=== PATIENT | female | born 1970 | race Two or more races ===

== ENCOUNTER 2020-06-27 15:00 | Outpatient (RCR) | payer OTHER, SELFPAY | END 2020-09-20 07:27 | disposition home or self-care (01) | LOC: HO.OT 15:00 | PROVIDERS: Visit Provider Student in an Organized Health Care Education/Training Program | DX: M25.432 Effusion, left wrist (principal) | CPT/HCPCS: 97110; 97530 ==

== ENCOUNTER 2020-11-01 09:54 | Outpatient (REF) | payer OTHER, SELFPAY ==
--- NOTE | ~2020-11-01 | MM_ITS ---
EXAMINATION: MM SCREENING DIGITAL BREAST TOMOSYNTHESIS, BILATERAL CLINICAL INFORMATION: Screening. Asymptomatic. The lifetime risk of breast cancer based on the Tyrer-Cuzick Model is 8.5%. COMPARISON: Mammography: May 18, 2019 and studies dating back to January 22, 2014 TECHNIQUE: Digital breast tomosynthesis is performed in both the craniocaudal and mediolateral oblique views along with computer-aided detection (CAD). Synthesized 2D images are generated from the tomosynthesis. FINDINGS: The breasts are almost entirely fatty (ACR BI-RADS breast composition Category a). There are no significant masses, abnormal calcifications, or other abnormalities. MM/MM tomosynthesis screening BI IMPRESSION: There are no significant changes from prior study. ASSESSMENT: BI-RADS 1: Negative RECOMMENDATION: Routine annual mammography screening. This patient's information was entered into a reminder system with a target due date for their next mammogram.
== END 2020-11-01 09:55 | disposition home or self-care (01) ==
LOC: HO.MAMMO 09:54
PROVIDERS: PCP Internal Medicine; Visit Provider Internal Medicine
DX: Z12.31 Encounter for screening mammogram for malignant neoplasm of breast (principal)
CPT/HCPCS: 77063; 77067

== ENCOUNTER 2020-12-15 13:41 | Outpatient (REF) | payer OTHER, SELFPAY ==
[2020-12-15 14:18] LABS: MANUAL DIFF FLAG NO
[2020-12-15 14:23] LABS: Glucose Urine UA 100 MG/DL (NEG); Leukocyte Esterase Urine TRACE (NEG); Nitrite Urine NEG (NEG); Urine Blood NEG (NEG); Urine Ketones NEG (NEG); Urine Protein NEG (NEG-TRACE)
[2020-12-15 14:24] LABS: Basophils Absolute Auto 0.1 X10*3/uL (0.0-0.2); Basophils Percent Auto 0.8 % (0-2); Eosinophils Absolute Auto 0.4 X10*3/uL (0.0-0.4); Hematocrit 42.7 % (37-47); Hemoglobin 14.5 g/dl (12.0-16.0); Imm Gran Abs Auto 0.04 X10*3/uL (0.00-0.03); Imm Gran Pct Auto 0.5 % (0.0-0.4); Lymphocytes Absolute Auto 2.6 X10*3/uL (1.2-4.9); Lymphocytes Percent Auto 34.5 % (20-40); Mean Corpuscular Hemoglobin 31.4 pg (27.0-33.0); Mean Corpuscular Volume 92.4 fL (80-98); Mean Platelet Volume 10.4 fL (9.4-12.3); Monocytes Absolute Auto 0.4 X10*3/uL (0.1-1.2); Monocytes Percent Auto 5.8 % (2-11); Neutrophils Percent Auto 53.4 % (45-73); Platelet Count 217 X10*3/uL (160-400); Red Blood Count 4.62 X10*6/uL (4.20-5.50); Red Cell Distribution Width 12.7 % (11.0-16.0); White Blood Count 7.5 X10*3/uL (4.8-10.8)
[2020-12-15 14:25] LABS: Appearance Urine HAZY; Color Urine YELLOW
[2020-12-15 14:44] LABS: Alanine Aminotransferase 23 U/L (0-31); Albumin Level 4.3 g/dL (3.5-5.0); Alkaline Phosphatase 69 U/L (39-117); Anion Gap 13 (12-20); Aspartate Amino Transferase 19 U/L (5-31); Bilirubin Total 0.5 mg/dL (0.0-1.0); Blood Urea Nitrogen 14 mg/dL (9-16); Calcium 9.3 mg/dL (8.4-10.2); Carbon Dioxide 26 mmol/L (22-29); Chloride 106 mmol/L (96-108); Cholesterol 227 mg/dL; Estimated Glomerular Filt Rate > 60; Glucose Fasting 92 mg/dL (60-99); HDL Cholesterol 56 mg/dL; LDL Cholesterol Calculated 141 mg/dl; Potassium 3.9 mmol/L (3.3-5.1); Sodium 141 mmol/L (135-145); Total Protein 7.3 g/dL (6.5-8.0); Triglycerides 153 mg/dL
[2020-12-15 15:00] LABS: Bacteria Urine 1+ /LPF; RBC Urine 0-2 /HPF (0); Squamous Epithelial Cell Urine 2+ /LPF
[2020-12-15 15:01] LABS: Free T4 (Free Thyroxine) 0.97 ng/dL (0.71-1.85); Thyroid Stimulating Hormone 0.53 uIU/mL (0.32-4.0)
[2020-12-15 15:06] LABS: Creatinine Urine 108.88 mg/dL; Microalbum/Creatinine Ratio Ur 5.5 ug/mg cr
== END 2020-12-15 13:42 | disposition home or self-care (01) ==
LOC: HO.LAB 13:41
PROVIDERS: PCP Internal Medicine; Visit Provider Internal Medicine
DX: E78.00 Pure hypercholesterolemia, unspecified (principal); G47.33 Obstructive sleep apnea (adult) (pediatric); R63.5 Abnormal weight gain; I10 Essential (primary) hypertension
CPT/HCPCS: 36415; 80053; 80061; 81001; 82043; 84439; 84443; 85025

== ENCOUNTER 2021-02-21 15:40 | Outpatient (REF) | payer OTHER, SELFPAY ==
[2021-02-21 20:15] LABS: Alanine Aminotransferase 18 U/L (0-31); Albumin Level 4.4 g/dL (3.5-5.0); Alkaline Phosphatase 83 U/L (39-117); Anion Gap 15 (12-20); Aspartate Amino Transferase 18 U/L (5-31); Bilirubin Total 0.6 mg/dL (0.0-1.0); Blood Urea Nitrogen 10 mg/dL (9-16); C Reactive Protein 1.17 mg/dL (< or = 0.50); Calcium 9.4 mg/dL (8.4-10.2); Carbon Dioxide 22 mmol/L (22-29); Chloride 109 mmol/L (96-108); Estimated Glomerular Filt Rate > 60; Glucose Random 93 mg/dL (60-115); Potassium 3.8 mmol/L (3.3-5.1); Sodium 142 mmol/L (135-145); Total Protein 7.6 g/dL (6.5-8.0)
[2021-02-21 20:28] LABS: Uric Acid 7.1 mg/dL (2.4-5.7)
== END 2021-02-21 15:41 | disposition home or self-care (01) ==
LOC: HO.LAB 15:40
PROVIDERS: PCP Internal Medicine; Visit Provider Internal Medicine
DX: M25.561 Pain in right knee (principal)
CPT/HCPCS: 36415; 80053; 84550; 86140

== ENCOUNTER 2021-03-03 08:05 | Outpatient (REF) | payer OTHER, SELFPAY ==
--- NOTE | ~2021-03-03 | XR_ITS ---
EXAMINATION: AP BILATERAL KNEE STANDING. RIGHT KNEE. LEFT KNEE. THE CLINICAL INFORMATION: Bilateral knee pain. COMPARISON: Bilateral knees 02/08/2020 TECHNIQUE: AP bilateral knees standing one view. Right knee 2 views. Left knee 2 views. FINDINGS: AP bilateral knee: There is moderate reduction in medial compartment joint space both knees with periarticular spurring. The lateral compartment joint spaces normal. No visible acute fracture, dislocation or lytic process seen. Right knee: There is loss of patellofemoral compartment joint space with periarticular spurring. There is minimal suprapatellar joint effusion. Left knee: There is mild reduction in the medial compartment left knee joint space with periarticular spurring. No visible acute fracture, dislocation or lytic process seen. No abnormal joint effusion seen. XR/XR knee standing BI IMPRESSION: Degenerative arthritic changes of the tricompartments worse in the medial and patellofemoral compartment with minimal right knee joint effusion. No acute fracture, loose bodies or bony erosive changes seen.
--- NOTE | ~2021-03-03 | XR_ITS ---
EXAMINATION: AP BILATERAL KNEE STANDING. RIGHT KNEE. LEFT KNEE. THE CLINICAL INFORMATION: Bilateral knee pain. COMPARISON: Bilateral knees 02/08/2020 TECHNIQUE: AP bilateral knees standing one view. Right knee 2 views. Left knee 2 views. FINDINGS: AP bilateral knee: There is moderate reduction in medial compartment joint space both knees with periarticular spurring. The lateral compartment joint spaces normal. No visible acute fracture, dislocation or lytic process seen. Right knee: There is loss of patellofemoral compartment joint space with periarticular spurring. There is minimal suprapatellar joint effusion. Left knee: There is mild reduction in the medial compartment left knee joint space with periarticular spurring. No visible acute fracture, dislocation or lytic process seen. No abnormal joint effusion seen. XR/XR knee RT 2V IMPRESSION: Degenerative arthritic changes of the tricompartments worse in the medial and patellofemoral compartment with minimal right knee joint effusion. No acute fracture, loose bodies or bony erosive changes seen.
--- NOTE | ~2021-03-03 | XR_ITS ---
EXAMINATION: AP BILATERAL KNEE STANDING. RIGHT KNEE. LEFT KNEE. THE CLINICAL INFORMATION: Bilateral knee pain. COMPARISON: Bilateral knees 02/08/2020 TECHNIQUE: AP bilateral knees standing one view. Right knee 2 views. Left knee 2 views. FINDINGS: AP bilateral knee: There is moderate reduction in medial compartment joint space both knees with periarticular spurring. The lateral compartment joint spaces normal. No visible acute fracture, dislocation or lytic process seen. Right knee: There is loss of patellofemoral compartment joint space with periarticular spurring. There is minimal suprapatellar joint effusion. Left knee: There is mild reduction in the medial compartment left knee joint space with periarticular spurring. No visible acute fracture, dislocation or lytic process seen. No abnormal joint effusion seen. XR/XR knee LT 2V IMPRESSION: Degenerative arthritic changes of the tricompartments worse in the medial and patellofemoral compartment with minimal right knee joint effusion. No acute fracture, loose bodies or bony erosive changes seen.
== END 2021-03-03 08:06 | disposition home or self-care (01) ==
LOC: HO.HOSX 08:05
PROVIDERS: Visit Provider Physician Assistant
DX: M17.0 Bilateral primary osteoarthritis of knee (principal)
CPT/HCPCS: 20610; 73560; 73565; 99202; J1040

== ENCOUNTER 2021-07-12 14:00 | Outpatient (REF) | payer OTHER, SELFPAY | END 2021-07-12 14:01 | disposition home or self-care (01) | LOC: HO.LAB 14:00 | PROVIDERS: Visit Provider Internal Medicine | DX: Z20.822 Contact with and (suspected) exposure to COVID-19 (principal) | CPT/HCPCS: C9803; U0003; U0005 ==

== ENCOUNTER 2021-11-07 | Outpatient (REF) | payer OTHER, SELFPAY | END 2021-11-07 00:01 | disposition home or self-care (01) | LOC: CF | PROVIDERS: Visit Provider Physician Assistant | DX: M17.0 Bilateral primary osteoarthritis of knee (principal) | CPT/HCPCS: 20610; 99212; J1040 ==

== ENCOUNTER 2021-12-19 14:00 | Outpatient (REF) | payer OTHER, SELFPAY ==
[2021-12-19 14:51] LABS: Influenza A PCR NEGATIVE (Negative); Influenza B PCR NEGATIVE (Negative); Resp Syncy Virus RNA Qual PCR NEGATIVE (Negative); SARS COV2 PCR INHOUSE NEGATIVE (Negative)
== END 2021-12-19 14:01 | disposition home or self-care (01) ==
LOC: HO.LNP 14:00
PROVIDERS: Visit Provider Internal Medicine
DX: Z20.822 Contact with and (suspected) exposure to COVID-19 (principal); R05.9 Cough, unspecified; R06.02 Shortness of breath
CPT/HCPCS: 0241U

== ENCOUNTER 2022-02-12 15:39 | Outpatient (REF) | payer OTHER, SELFPAY ==
--- NOTE | ~2022-02-12 | XR_ITS ---
EXAMINATION: XR KNEE, BILATERAL XR KNEE STANDING, BILATERAL CLINICAL INFORMATION: Bilateral knee pain. COMPARISON: AP bilateral knee standing and both knees 03/03/2021. TECHNIQUE: AP bilateral knee standing 1 view. 2 views each knee. FINDINGS: AP Bilateral Knee: There is moderate reduction in the medial compartment joint space both knees slightly greater on the right side with periarticular spurring. Minimal periarticular spurring is seen in the lateral compartment as well. No fracture or loose body seen. No soft tissue swelling. Right Knee: There is moderate loss of patellofemoral compartment joint space with periarticular spurring. There is minimal suprapatellar joint effusion. No loose body seen. No bony erosive changes. Left Knee: There is moderate loss of patellofemoral compartment joint space with periarticular spurring. No loose bodies or bony erosive changes seen. The soft tissues are normal. XR/XR knee standing BI IMPRESSION: Moderate degenerative arthritic changes in the medial and patellofemoral compartments of both knees slightly greater on the right side in the medial compartment. There is mild suprapatellar joint effusion bilaterally. There is no acute fracture, loose bodies or bony erosive changes.
--- NOTE | ~2022-02-12 | XR_ITS ---
EXAMINATION: XR KNEE, BILATERAL XR KNEE STANDING, BILATERAL CLINICAL INFORMATION: Bilateral knee pain. COMPARISON: AP bilateral knee standing and both knees 03/03/2021. TECHNIQUE: AP bilateral knee standing 1 view. 2 views each knee. FINDINGS: AP Bilateral Knee: There is moderate reduction in the medial compartment joint space both knees slightly greater on the right side with periarticular spurring. Minimal periarticular spurring is seen in the lateral compartment as well. No fracture or loose body seen. No soft tissue swelling. Right Knee: There is moderate loss of patellofemoral compartment joint space with periarticular spurring. There is minimal suprapatellar joint effusion. No loose body seen. No bony erosive changes. Left Knee: There is moderate loss of patellofemoral compartment joint space with periarticular spurring. No loose bodies or bony erosive changes seen. The soft tissues are normal. XR/XR knee LT 2V IMPRESSION: Moderate degenerative arthritic changes in the medial and patellofemoral compartments of both knees slightly greater on the right side in the medial compartment. There is mild suprapatellar joint effusion bilaterally. There is no acute fracture, loose bodies or bony erosive changes.
--- NOTE | ~2022-02-12 | XR_ITS ---
EXAMINATION: XR KNEE, BILATERAL XR KNEE STANDING, BILATERAL CLINICAL INFORMATION: Bilateral knee pain. COMPARISON: AP bilateral knee standing and both knees 03/03/2021. TECHNIQUE: AP bilateral knee standing 1 view. 2 views each knee. FINDINGS: AP Bilateral Knee: There is moderate reduction in the medial compartment joint space both knees slightly greater on the right side with periarticular spurring. Minimal periarticular spurring is seen in the lateral compartment as well. No fracture or loose body seen. No soft tissue swelling. Right Knee: There is moderate loss of patellofemoral compartment joint space with periarticular spurring. There is minimal suprapatellar joint effusion. No loose body seen. No bony erosive changes. Left Knee: There is moderate loss of patellofemoral compartment joint space with periarticular spurring. No loose bodies or bony erosive changes seen. The soft tissues are normal. XR/XR knee RT 2V IMPRESSION: Moderate degenerative arthritic changes in the medial and patellofemoral compartments of both knees slightly greater on the right side in the medial compartment. There is mild suprapatellar joint effusion bilaterally. There is no acute fracture, loose bodies or bony erosive changes.
== END 2022-02-12 15:40 | disposition home or self-care (01) ==
LOC: HO.HOSX 15:39
PROVIDERS: Visit Provider Physician Assistant
DX: M17.0 Bilateral primary osteoarthritis of knee (principal)
CPT/HCPCS: 20610; 73560; 73565; 99212; J1040

== ENCOUNTER 2022-02-27 15:04 | Outpatient (REF) | payer OTHER, SELFPAY ==
--- NOTE | ~2022-02-27 | MM_ITS ---
EXAMINATION: MM SCREENING DIGITAL BREAST TOMOSYNTHESIS, BILATERAL CLINICAL INFORMATION: Screening. Asymptomatic. The lifetime risk of breast cancer based on the Tyrer-Cuzick Model is 10.5%. COMPARISON: Mammography: November 01, 2020 and studies dating back to January 28, 2014 TECHNIQUE: Digital breast tomosynthesis is performed in both the craniocaudal and mediolateral oblique views along with computer-aided detection (CAD). Synthesized 2D images are generated from the tomosynthesis. Additional cleavage view performed. FINDINGS: The breasts are almost entirely fatty (ACR BI-RADS breast composition Category a). There are no significant masses, abnormal calcifications, or other abnormalities. MM/MM tomosynthesis screening BI IMPRESSION: There are no significant changes from prior study. ASSESSMENT: BI-RADS 1: Negative RECOMMENDATION: Routine annual mammography screening. This patient's information was entered into a reminder system with a target due date for their next mammogram.
== END 2022-02-27 15:05 | disposition home or self-care (01) ==
LOC: HO.MAMMO 15:04
PROVIDERS: PCP Internal Medicine; Visit Provider Internal Medicine
DX: Z12.31 Encounter for screening mammogram for malignant neoplasm of breast (principal)
CPT/HCPCS: 77063; 77067

== ENCOUNTER 2022-05-11 14:31 | Outpatient (REF) | payer OTHER, SELFPAY ==
--- NOTE | ~2022-05-11 | XR_ITS ---
EXAMINATION: XR FOOT, LEFT CLINICAL INFORMATION: Injury COMPARISON: None TECHNIQUE: AP, lateral, and oblique views of the left foot. FINDINGS: Bones of the midfoot are well aligned. No tarsal or metatarsal fracture. Subtle nondisplaced fracture involving the distal phalanx of the great toe. There is no significant overlying soft tissue swelling. Small to moderate-sized plantar calcaneal enthesophyte. XR/XR foot LT min 3V IMPRESSION: Subtle nondisplaced fracture involving the distal phalanx of the great toe.
== END 2022-05-11 14:32 | disposition home or self-care (01) ==
LOC: HO.XRAY 14:31
PROVIDERS: PCP Internal Medicine; Visit Provider Internal Medicine
DX: S92.425A Nondisplaced fracture of distal phalanx of left great toe, initial encounter for closed fracture (principal); X58.XXXA Exposure to other specified factors, initial encounter; Y93.9 Activity, unspecified; Y92.9 Unspecified place or not applicable; Y99.8 Other external cause status; I10 Essential (primary) hypertension; E78.00 Pure hypercholesterolemia, unspecified
CPT/HCPCS: 73630

== ENCOUNTER → 2022-05-17 14:47 | Outpatient (BNVA) | payer OTHER, SELFPAY | PROVIDERS: PCP Internal Medicine; Visit Provider Physician Assistant | DX: M17.0 Bilateral primary osteoarthritis of knee (principal) | CPT/HCPCS: 20610; 99212; J1040 ==

== ENCOUNTER 2022-07-12 13:55 | Outpatient (REF) | payer OTHER, SELFPAY ==
[2022-07-14 22:04] LABS: HPV mRNA E6/E7 rflx Not Detected (Not Detected)
== END 2022-07-12 13:56 | disposition home or self-care (01) ==
LOC: HO.LNP 13:55
PROVIDERS: Visit Provider Obstetrics & Gynecology
DX: Z01.419 Encounter for gynecological examination (general) (routine) without abnormal findings (principal); Z11.51 Encounter for screening for human papillomavirus (HPV)
CPT/HCPCS: 87624; 88142

== ENCOUNTER 2022-09-13 08:57 | Outpatient (REF) | payer OTHER, SELFPAY ==
--- NOTE | ~2022-09-13 | XR_ITS ---
EXAMINATION: XR KNEE, RIGHT XR KNEE, LEFT XR KNEE AP STANDING CLINICAL INFORMATION: Bilateral knee pain. COMPARISON: None TECHNIQUE: Four views of the right knee. Four views of the left knee. AP bilateral standing view of the knees was obtained. FINDINGS: RIGHT KNEE: There is marked asymmetric narrowing of the medial joint space compartment. The lateral joint space compartment is well-maintained. There is a mild varus configuration. There is moderate narrowing of the patellofemoral compartment. There is tricompartment peripheral osteophyte formation. No fracture, dislocation or significant joint effusion is seen. There is no foreign body. Left knee: There is marked asymmetric narrowing of the medial joint space compartment. The lateral and patellofemoral joint space compartments are well-maintained. There is a mild varus configuration. There is tricompartment peripheral osteophyte formation. No fracture or dislocation is seen. There is no significant joint effusion. No foreign body is noted. XR/XR knee RT 2V IMPRESSION: 1. There is tricompartment osteoarthritic change of the right knee, most pronounced of the medial joint space compartment, where it is marked. 2. There is tricompartment osteoarthritic change of the left knee, most pronounced of the medial joint space compartment, where it is marked. 3. There is a mild bilateral varus configuration. 4. No fracture, dislocation or joint effusion is seen bilaterally.
--- NOTE | ~2022-09-13 | XR_ITS ---
EXAMINATION: XR KNEE, RIGHT XR KNEE, LEFT XR KNEE AP STANDING CLINICAL INFORMATION: Bilateral knee pain. COMPARISON: None TECHNIQUE: Four views of the right knee. Four views of the left knee. AP bilateral standing view of the knees was obtained. FINDINGS: RIGHT KNEE: There is marked asymmetric narrowing of the medial joint space compartment. The lateral joint space compartment is well-maintained. There is a mild varus configuration. There is moderate narrowing of the patellofemoral compartment. There is tricompartment peripheral osteophyte formation. No fracture, dislocation or significant joint effusion is seen. There is no foreign body. Left knee: There is marked asymmetric narrowing of the medial joint space compartment. The lateral and patellofemoral joint space compartments are well-maintained. There is a mild varus configuration. There is tricompartment peripheral osteophyte formation. No fracture or dislocation is seen. There is no significant joint effusion. No foreign body is noted. XR/XR knee LT 2V IMPRESSION: 1. There is tricompartment osteoarthritic change of the right knee, most pronounced of the medial joint space compartment, where it is marked. 2. There is tricompartment osteoarthritic change of the left knee, most pronounced of the medial joint space compartment, where it is marked. 3. There is a mild bilateral varus configuration. 4. No fracture, dislocation or joint effusion is seen bilaterally.
--- NOTE | ~2022-09-13 | XR_ITS ---
EXAMINATION: XR KNEE, RIGHT XR KNEE, LEFT XR KNEE AP STANDING CLINICAL INFORMATION: Bilateral knee pain. COMPARISON: None TECHNIQUE: Four views of the right knee. Four views of the left knee. AP bilateral standing view of the knees was obtained. FINDINGS: RIGHT KNEE: There is marked asymmetric narrowing of the medial joint space compartment. The lateral joint space compartment is well-maintained. There is a mild varus configuration. There is moderate narrowing of the patellofemoral compartment. There is tricompartment peripheral osteophyte formation. No fracture, dislocation or significant joint effusion is seen. There is no foreign body. Left knee: There is marked asymmetric narrowing of the medial joint space compartment. The lateral and patellofemoral joint space compartments are well-maintained. There is a mild varus configuration. There is tricompartment peripheral osteophyte formation. No fracture or dislocation is seen. There is no significant joint effusion. No foreign body is noted. XR/XR knee standing BI IMPRESSION: 1. There is tricompartment osteoarthritic change of the right knee, most pronounced of the medial joint space compartment, where it is marked. 2. There is tricompartment osteoarthritic change of the left knee, most pronounced of the medial joint space compartment, where it is marked. 3. There is a mild bilateral varus configuration. 4. No fracture, dislocation or joint effusion is seen bilaterally.
[2022-09-13 16:51] LABS: Influenza A PCR NEGATIVE (Negative); Influenza B PCR NEGATIVE (Negative); Resp Syncy Virus RNA Qual PCR NEGATIVE (Negative); SARS COV2 PCR INHOUSE NEGATIVE (Negative)
== END 2022-09-13 08:58 | disposition home or self-care (01) ==
LOC: HO.HOSX 08:57
PROVIDERS: Internal Medicine; Visit Provider Physician Assistant
DX: Z20.822 Contact with and (suspected) exposure to COVID-19 (principal); M17.0 Bilateral primary osteoarthritis of knee; R05.9 Cough, unspecified; R68.83 Chills (without fever)
CPT/HCPCS: 0241U; 20610; 73560; 73565; 99212; J1040

== ENCOUNTER 2022-10-30 16:49 | Emergency (ER) | payer OTHER, SELFPAY ==
[2022-10-30 17:20] VITALS: BP 174/105; PULSE 87; RESP 18; TEMP 36.8; O2SAT 98; BMI 40.4
--- NOTE | 2022-10-30 17:49 | ED_ITS ---
HPI - General Adult General Chief complaint: Allergic Reaction Stated complaint: rash on body Time Seen by Provider: 10/30/22 17:39 Source: patient, family, RN notes reviewed and old records reviewed Mode of arrival: ambulatory Limitations: no limitations History of Present Illness HPI narrative: 51-year-old female presents for evaluation of a rash. Patient states that 1 week ago she tried a new detergent and after using it the 1st time she got a rash to most of her body. The rash was initially mild so she did not attribute it to the detergent and used it a few more times. Patient states that she then stopped using the detergent and . Her primary doctor who called her in a prescription for hydroxyzine to treat the itching The patient has been using hydroxyzine 3 times a day with minimal relief She states that the rash is still over her neck, but her face, but mostly back chest, arms Related Data Home Medications Medication Instructions Recorded Confirmed lisinopril 20 mg tablet 20 mg PO BID 03/03/21 metoprolol succinate 25 mg 12.5 mg PO DAILY 03/03/21 tablet,extended release 24 hr gabapentin 300 mg capsule 300 mg PO TID 07/12/22 Previous Rx's Medication Instructions Recorded diphenhydramine HCl 25 mg capsule 25 mg PO Q4H PRN itching #20 caps 10/30/22 (Benadryl) hydrocortisone 1 % topical cream 1 appl topical TID 5 days #28.35 10/30/22 (Anti-Itch (hydrocortisone)) grams prednisone 20 mg tablet 40 mg PO DAILY #10 tabs 10/30/22 Allergies Allergy/AdvReac Type Severity Reaction Status Date / Time ibuprofen [From MOTRIN] Allergy Unknown UPSET Verified 09/13/22 14:58 STOMACH, stomach upset, stomach upset tramadol [TRAMADOL] Allergy Unknown UPSET Verified 09/13/22 14:58 STOMACH, nausea and vomiting Pt states no food allergies Allergy Unknown unknown Uncoded 07/12/22 13:13 Review of Systems Constitutional: Constitutional: Reports as per HPI, Denies chills, Denies fatigue, Denies fever(s) and Denies headache(s) ENT: Denies headache(s) Cardiovascular: Cardiovascular: Denies chest pain and Denies dyspnea Respiratory: Respiratory: Denies cough and Denies dyspnea Gastrointestinal: Gastrointestinal: Denies abdominal pain, Denies constipation and Denies vomiting Genitourinary: Genitourinary: Denies dysuria Integumentary/Breasts: Skin/Breast: Reports pruritus and Reports rash Neurologic: Denies headache(s) and Denies focal weakness Endocrine: Endocrine: Denies fatigue PMFSH Past Medical History Medical History Carpal tunnel syndrome Fibromyalgia HTN (hypertension) Osteoarthritis Surgical History Hx of section Hx of cholecystectomy Hx of tubal ligation Family History Family History Mother HTN (hypertension) Sister Ovarian cancer Maternal Aunt Breast cancer Social History Social History Household Members: Children Housing: Condominium Alcohol intake: current Alcohol intake frequency: holidays/special occasions only Patient Tobacco Use Status: Former Tobacco user Advance Directives: No Advance Directives Information Provided: No Advance Directives Date on File: 05/12/20 service: No Current occupational status: disabled Current occupation: rt hand Sexual orientation: Straight/Heterosexual Gender identity: Female Physical Exam ED Vital Signs: Vital Signs - 24 hr 10/30/22 17:20 Temperature 98.2 F Pulse Rate 87 Respiratory Rate 18 Blood Pressure 174/105 H Pulse Oximetry 98 Oxygen Delivery Method Room Air BMI result Body Mass Index 40.4 Const General: healthy appearing, comfortable, no acute distress, alert and awake Nutritional Appearance: well nourished Orientation/consciousness: patient oriented x3 HENMT Other: No rashes or lesions to the oral mucosa Head: Yes normocephalic and Yes atraumatic Throat: Yes posterior oropharynx normal Eyes Eyelids: Yes eyelids normal Conjunctivae: conjunctivae normal Sclerae: sclerae normal Corneas: corneas normal Pupils: Equal, round and reactive pupils present EOM: EOMs intact bilaterally Neck Neck: Yes full ROM Resp Effort & Inspection: normal respiratory effort, able to speak in complete senten amanda, no audible wheezes and not labored Auscultation: clear to auscultation bilaterally Cardio Rate: regular rate Rhythm: regular rhythm Skin Other: Patient has a diffuse rash mostly to the trunk and neck that appears to be a mixture of urticaria with excoriations. No pustules, petechiae, purpura. General skin exam: rashes and/or lesions noted and Excoriation Neuro General: patient oriented x3 Cranial nerves: Yes Equal, round and reactive pupils present and Yes Bilaterally intact EOM present Cognition (Neuro): normal cognition Extrem Other: Moving all extremities well without any obvious deformities Medical Decision Making Medical Decision Making MDM Narrative: Patient appears to have a mild allergic reaction, she was treat with antihi stamine with minimal relief. Will treat with prednisone given her diffuse it is. She will be given Benadryl as well for bedtime and she reports the itching keeps her up at night. She will also be given hydrocortisone cream but was instructed not to use this on her face. There is no evidence of local infection or severe dermatologic emergencies such as Winn-Darion syndrome Discharge Plan Discharge Clinical Impression: Urticaria Patient Disposition: Home, Self-Care Instructions: Acute Rash (ED) Additional Instructions: Take prednisone 40 mg daily for the next 5 days. Use Benadryl up to every 4 hours as needed for itching and rash. This will make you sleepy, did not drink alcohol or drive after using it. Use hydrocortisone cream three times daily for 5 days. Do not apply to the face or groin Prescriptions: New prednisone 20 mg tablet 40 mg PO DAILY Qty: 10 0RF diphenhydramine HCl [Benadryl] 25 mg capsule 25 mg PO Q4H PRN (Reason: itching) Qty: 20 0RF hydrocortisone [Anti-Itch (HC)] 1 % cream 1 appl topical TID 5 Days Qty: 28.35 0RF No Action lisinopril 20 mg tablet 20 mg PO BID metoprolol succinate 25 mg tablet extended release 24 hr 12.5 mg PO DAILY gabapentin 300 mg capsule 300 mg PO TID Interventions: ED Discharge Assessment Last Done: 10/30/22 18:05 Discharge Date/Time: 10/30/22 18:05
== END 2022-10-30 18:05 | disposition home or self-care (01) ==
PROVIDERS: Emergency Provider Emergency Medicine Emergency Medical Services; PCP Internal Medicine
DX: L50.9 Urticaria, unspecified (principal); I10 Essential (primary) hypertension; Z79.899 Other long term (current) drug therapy
CPT/HCPCS: 99282; 99283

== ENCOUNTER → 2022-12-10 12:05 | Outpatient (BNVA) | payer OTHER, SELFPAY | PROVIDERS: PCP Internal Medicine; Visit Provider Physician Assistant | DX: M17.0 Bilateral primary osteoarthritis of knee (principal) | CPT/HCPCS: 20610; 99212; J1040 ==

== ENCOUNTER → 2022-12-12 09:56 | Outpatient (BNVA) | payer OTHER, SELFPAY | PROVIDERS: PCP Internal Medicine; Visit Provider Orthopaedic Surgery ==

== ENCOUNTER 2023-02-18 16:14 | Outpatient (REF) | payer OTHER, SELFPAY ==
[2023-02-18 17:10] LABS: Influenza A PCR NEGATIVE (Negative); Influenza B PCR NEGATIVE (Negative); Resp Syncy Virus RNA Qual PCR NEGATIVE (Negative); SARS COV2 PCR INHOUSE NEGATIVE (Negative)
== END 2023-02-18 16:15 | disposition home or self-care (01) ==
LOC: HO.LNP 16:14
PROVIDERS: Visit Provider Internal Medicine
DX: Z20.822 Contact with and (suspected) exposure to COVID-19 (principal)
CPT/HCPCS: 0241U

== ENCOUNTER 2023-04-25 11:36 | Outpatient (REF) | payer OTHER, SELFPAY ==
[2023-04-25 11:56] LABS: MANUAL DIFF FLAG NO
[2023-04-25 12:19] LABS: Basophils Absolute Auto 0.1 X10*3/uL (0.0-0.2); Basophils Percent Auto 0.9 % (0-2); Eosinophils Absolute Auto 0.3 X10*3/uL (0.0-0.4); Eosinophils Percent Auto 3.9 % (0-4); Hemoglobin 15.7 g/dl (12.0-16.0); Imm Gran Abs Auto 0.02 X10*3/uL (0.00-0.03); Imm Gran Pct Auto 0.3 % (0.0-0.4); Lymphocytes Absolute Auto 2.5 X10*3/uL (1.2-4.9); Lymphocytes Percent Auto 32.9 % (20-40); Mean Corpuscular HGB Conc 34.1 g/dl (31.0-35.0); Mean Corpuscular Hemoglobin 30.7 pg (27.0-33.0); Mean Platelet Volume 10.6 fL (9.4-12.3); Monocytes Absolute Auto 0.5 X10*3/uL (0.1-1.2); Monocytes Percent Auto 7.1 % (2-11); Neutrophils Absolute Auto 4.1 x10*3/uL (2.0-8.3); Neutrophils Percent Auto 54.9 % (45-73); Platelet Count 236 X10*3/uL (160-400); Red Blood Count 5.11 X10*6/uL (4.20-5.50); Red Cell Distribution Width 12.6 % (11.0-16.0); White Blood Count 7.5 X10*3/uL (4.8-10.8)
[2023-04-25 12:36] LABS: Alanine Aminotransferase 18 U/L (0-31); Albumin Level 4.4 g/dL (3.5-5.0); Alkaline Phosphatase 83 U/L (39-117); Anion Gap 12 (12-20); Aspartate Amino Transferase 18 U/L (5-31); Bilirubin Total 0.9 mg/dL (0.0-1.0); Blood Urea Nitrogen 12 mg/dL (9-16); Carbon Dioxide 26 mmol/L (22-29); Chloride 107 mmol/L (96-108); Cholesterol 220 mg/dL (<200); Estimated Glomerular Filt Rate > 60; Glucose Random 100 mg/dL (60-115); HDL Cholesterol 60 mg/dL (>40); LDL Cholesterol Calculated 136 mg/dL (<100); Potassium 3.8 mmol/L (3.3-5.1); Sodium 141 mmol/L (135-145); Total Protein 7.9 g/dL (6.5-8.0); Triglycerides 120 mg/dL (<150)
[2023-04-25 12:39] LABS: Appearance Urine Cloudy; Color Urine Yellow; Glucose Urine UA Negative (Negative); Leukocyte Esterase Urine Moderate (2+) (Negative); Nitrite Urine Positive (Negative); PH 5.5 (5.0-9.0); Specific Gravity - Urine <= 1.005 (1.005-1.025); UMIC TRIGGER UA YES; Urine Blood Negative (Negative); Urine Ketones Negative (Negative); Urine Protein Negative (Neg-Trace)
[2023-04-25 12:42] LABS: Bacteria Urine 2+ (None Seen); Hyaline Casts Urine 0-2 /LPF (0-2); RBC Urine 0-2 /HPF (0-2)
== END 2023-04-25 11:37 | disposition home or self-care (01) ==
LOC: HO.LAB 11:36
PROVIDERS: PCP Internal Medicine; Visit Provider Internal Medicine
DX: I10 Essential (primary) hypertension (principal); E78.00 Pure hypercholesterolemia, unspecified
CPT/HCPCS: 36415; 80053; 80061; 81001; 85025

== ENCOUNTER 2023-05-08 13:56 | Outpatient (REF) | payer OTHER, SELFPAY ==
--- NOTE | ~2023-05-08 | MM_ITS ---
EXAMINATION: MM SCREENING DIGITAL BREAST TOMOSYNTHESIS, BILATERAL CLINICAL INFORMATION: Screening. Asymptomatic. COMPARISON: Mammography: This study is compared with prior exams dating back to 2017. TECHNIQUE: Digital breast tomosynthesis is performed in both the craniocaudal and mediolateral oblique views along with computer-aided detection (CAD). Synthesized 2D images are generated from the tomosynthesis. FINDINGS: The breasts are almost entirely fatty (ACR BI-RADS breast composition Category a). There are no significant masses, abnormal calcifications, or other abnormalities. There is a tissue marker in right breast from prior benign percutaneous biopsy. MM/MM tomosynthesis screening BI IMPRESSION: No mammographic evidence of malignancy. ASSESSMENT: BI-RADS BI-RADS 1 - Negative RECOMMENDATION: Routine annual mammography screening. 1 year F/U This examination should not preclude the clinical evaluation of a suspicious palpable abnormality. This patient's information was entered into a reminder system with a target due date for their next mammogram.
== END 2023-05-08 13:57 | disposition home or self-care (01) ==
LOC: HO.MAMMO 13:56
PROVIDERS: PCP Internal Medicine; Visit Provider Internal Medicine
DX: Z12.31 Encounter for screening mammogram for malignant neoplasm of breast (principal)
CPT/HCPCS: 77063; 77067

== ENCOUNTER → 2023-05-08 14:15 | Outpatient (BNV) | payer OTHER, SELFPAY | PROVIDERS: PCP Internal Medicine; Visit Provider Radiology Diagnostic Radiology | DX: Z12.31 Encounter for screening mammogram for malignant neoplasm of breast (principal) | CPT/HCPCS: 77063; 77067 ==

== ENCOUNTER 2023-07-04 10:24 | Outpatient (AMB) | payer OTHER, SELFPAY ==
--- NOTE | 2023-07-04 10:33 | A.OFFVIS_ITS ---
Intake Intake Visit Reasons: OV - B/L knee pain, repeat injections Intake Note: This is a 52 year old female who presents for bilateral knee pain. She reports swelling in both of her knees, she is using heat therapy to help with the pain. She would like injections today. Allergies ibuprofen [From MOTRIN] Allergy (Unknown, Verified 07/04/23 10:36) UPSET STOMACH, stomach upset, stomach upset tramadol [TRAMADOL] Allergy (Unknown, Verified 07/04/23 10:36) UPSET STOMACH, nausea and vomiting Pt states no food allergies Allergy (Unknown, Uncoded 07/04/23 10:36) unknown Medication List - Last Reconciled 07/04/23 by Izabela Kelly RN diphenhydramine HCl (Benadryl) 25 mg PO Q4H PRN gabapentin 300 mg PO TID hydrocortisone 1% (Anti-Itch (hydrocortisone)) 1 appl topical TID 5 days lisinopril 20 mg PO BID metoprolol succinate ER 12.5 mg PO DAILY prednisone 40 mg (2 x 20 mg) PO DAILY HPI OV - B/L knee pain, repeat injections HPI Details 52-year-old female who presents in the o ice today for a follow up of bilateral knee pain. The patient had a cortisone injection in the bilateral knees on 12/10/2022. The patient reports edema in her bilateral knees. She states she has been using heat therapy to help with the pain. She would like to repeat injections while in the office today. [facility] Medical History Carpal tunnel syndrome Fibromyalgia HTN (hypertension) Osteoarthritis Surgical History Hx of section Hx of cholecystectomy Hx of tubal ligation Family History Mother HTN (hypertension) Sister Ovarian cancer Maternal Aunt Breast cancer Social History Household Members: Children Housing: Condominium Alcohol intake: current Alcohol intake frequency: holidays/special occasions only Patient Tobacco Use Status: Former Tobacco user Advance Directives Date on File: 05/12/20 service: No Current occupational status: disabled Current occupation: rt hand Sexual orientation: Straight/Heterosexual Gender identity: Female Review of Systems Const All systems reviewed & are unremarkable except as noted in HPI and below Physical Exam Const General: cooperative, healthy appearing and no acute distress Resp Effort & Inspection: normal respiratory effort and able to speak in complete sentences Cardio Rate: regular rate Peripheral pulses: Peripheral pulses 2+ throughout GI Palpation (GI): Soft to palpation Skin Lesions: no lesions Rashes: no rashes Extrem Other: Bilateral knees: Normal to inspection. No ecchymosis, erythema, or joint effusion. Full ROM bilaterally. No tenderness at the medial and lateral joint lines. Negative Radha's. NVI. Office Procedures Joint Injection/Drain Joint Injection/Drain Primary Site: right knee Secondary Site: left knee Prep: site was prepped using aseptic technique, ethochloride spray was applied and injection warnings given Injected: 80 mg of, DepoMedrol, with 8 mL of (2% plain lido ) and in the joint Approach Used: anterolateral Procedure: The patient tolerated the procedure well, but had some pain with the injection and there was some relief with the local anesthesia Coding 48326 - Large joint Procedure code (CPT) selection complete Assessment & Plan Assessment & Plan (1) Bilateral primary osteoarthritis of knee: Code(s): M17.0 - Bilateral primary osteoarthritis of knee Plan Ms. Cuevas is a 52-year-old female who presents in the office today for a follow up of bilateral knee pain. The patient had a cortisone injection in the bilateral knees on 12/10/2022. The patient reports edema in her bilateral knees. She states she has been using heat therapy to help with the pain. She would like to repeat injections while in the office today. The patient was offered a cortisone injection in the bilateral knees with 80 mg of DepoMedrol. The patient was explained the risk, benefits, and alternatives to receiving this injection. After receiving consent for the injection, the patient had the procedure done while in office today. The patient tolerated the procedure well with no complications. Follow up will be PRN, or sooner if needed. Patient Instructions: Scribed for Virginia Stout PA-C by Nava Estrada medical front desk specialist, on 07/04/2023 at 10:36 am, EST. Coding Level of Care Code Est Pt Level 3 (93056) Diagnoses Bilateral primary osteoarthritis of knee M17.0 CPT Codes Coding - 58532 Large joint: 45506 - Large joint ([id number])
== END 2023-07-04 10:49 | disposition home or self-care (01) ==
PROVIDERS: PCP Internal Medicine; Visit Provider Physician Assistant
DX: M17.0 Bilateral primary osteoarthritis of knee (principal)
CPT/HCPCS: 20610

== ENCOUNTER → 2023-07-04 10:24 | Outpatient (BNVA) | payer OTHER, SELFPAY | PROVIDERS: PCP Internal Medicine; Visit Provider Physician Assistant | DX: M17.0 Bilateral primary osteoarthritis of knee (principal) | CPT/HCPCS: 20610; J1040 ==

== ENCOUNTER 2023-07-17 13:28 | Emergency (ER) | payer OTHER, SELFPAY ==
--- NOTE | 2023-07-17 13:39 | ECG_ITS ---
Test Reason : WEAKNESS Blood Pressure : / mmHG Vent. Rate : 096 BPM Atrial Rate : 096 BPM P-R Int : 156 ms QRS Dur : 070 ms QT Int : 362 ms P-R-T Axes : 075 041 076 degrees QTc Int : 457 ms Normal sinus rhythm Biatrial enlargement Abnormal ECG When compared with ECG of 09-MAR-2019 20:56, No significant change was found Referred By: Nidia Napier Electronically Signed By:Jose De Jesus Huggins
--- NOTE | 2023-07-17 13:42 | ED_ITS ---
HPI - General Adult General Chief complaint: General Medical Stated complaint: FLU-LIKE SYMPTOMS Time Seen by Provider: 07/17/23 13:32 Source: patient Mode of arrival: EMS Limitations: no limitations History of Present Illness HPI narrative: Patient points to emergency room complaining of body aches, flu-like symptoms, no shortness of breath or shortness of breath. Patient also complaining of severe anxiety. Patient denies nausea vomiting or diarrhea, no UTI symptoms Related Data Home Medications Medication Instructions Recorded Confirmed lisinopril 20 mg tablet 20 mg PO BID 03/03/21 07/04/23 metoprolol succinate 25 mg 12.5 mg PO DAILY 03/03/21 07/04/23 tablet,extended release 24 hr gabapentin 300 mg capsule 300 mg PO TID 07/12/22 07/04/23 Previous Rx's Medication Instructions Recorded diphenhydramine HCl 25 mg capsule 25 mg PO Q4H PRN itching #20 caps 10/30/22 (Benadryl) hydrocortisone 1 % topical cream 1 appl topical TID 5 days #28.35 10/30/22 (Anti-Itch (hydrocortisone)) grams prednisone 20 mg tablet 40 mg (2 x 20 mg) PO DAILY #10 tabs 10/30/22 Allergies Allergy/AdvReac Type Severity Reaction Status Date / Time ibuprofen [From MOTRIN] Allergy Unknown UPSET Verified 07/04/23 10:36 STOMACH, stomach upset, stomach upset tramadol [TRAMADOL] Allergy Unknown UPSET Verified 07/04/23 10:36 STOMACH, nausea and vomiting Pt states no food allergies Allergy Unknown unknown Uncoded 07/04/23 10:36 Review of Systems Review of Systems: Constitutional : No Weight loss, No Fever, complaining of Chills, No Night Sweats, No Fatigue, complain of generalized malaise ENT/Mouth : No Hearing loss, No Ear Pain, No Nasal Congestion, No Sinus Pain, No Hoarseness, No sore throat, No Rhinorrhea, No Swallowing Difficulty Eyes: No Eye Pain, No Swelling, No Redness, No Foreign Body, No Discharge, No Vision Changes Cardiovascular : No Chest Pain, No SOB, No Dyspnea on Exertion, No Orthopnea, No Edema, No Palpitations Respiratory : No Cough, No Sputum, No Wheezing, No Smoke Exposure, No Dyspnea Gastrointestinal : No Nausea, No Vomiting, No Diarrhea, No Constipation, No abdominal Pain, No Hematochezia, No Melena Genitourinary : no irregular bleeding, No Dysuria, No Urinary Frequency, No Hematuria, No Urinary Incontinence, No Urgency, No Flank Pain, No Urinary Flow Changes, No Hesitancy Musculoskeletal : No joint pain, No Myalgias, No Joint Swelling Skin : No Skin Lesions, No rash Neuro : No Weakness, No Numbness, No Paresthesias, No Loss of Consciousness, No Dizziness, No Headache Psych : Complaining of anxiety and panic attack No Depression, No SI/HI/AH/VH, No Social Issues, Heme/Lymph: No Bruising, No Bleeding,No Lymphadenopathy Endocrine : No Polyuria, No Polydipsia, No Temperature Intolerance [facility] Past Medical History Medical History (Updated 07/17/23 @ 15:18 by Nidia Napier MD) Panic attack Carpal tunnel syndrome Osteoarthritis Fibromyalgia HTN (hypertension) Surgical History Hx of section Hx of cholecystectomy Hx of tubal ligation Family History Family History Mother HTN (hypertension) Sister Ovarian cancer Maternal Aunt Breast cancer Social History Social History Household Members: Children Housing: Condominium Alcohol intake: current Alcohol intake frequency: holidays/special occasions only Patient Tobacco Use Status: Former Tobacco user Smoked in Last 30 Days: No Use of substances other than those prescribed or required for medical reasons: No Advance Directives: No Advance Directives Information Provided: Yes Advance Directives Date on File: 05/12/20 Patient : No service: No Current occupational status: disabled Current occupation: rt hand Sexual orientation: Straight/Heterosexual Gender identity: Female Physical Exam ED Vital Signs: Vital Signs - 24 hr 07/17/23 13:46 07/17/23 14:03 07/17/23 14:34 Temperature 98.4 F 98.9 F Pulse Rate 99 93 Respiratory Rate 17 22 H Blood Pressure 146/74 H 148/90 H Pulse Oximetry 99 97 Oxygen Delivery Method Room Air Room Air BMI result Body Mass Index 45.0 Const Other: Appearance: Alert. Oriented X3. Very anxious Eyes: Pupils equal, round and reactive to light. ENT: Pharynx normal. Neck: Normal inspection. Neck supple. No lymph nodes noted. No crepitus CVS: Normal heart rate and rhythm. Pulses normal. Normal S1 and S2 Respiratory: No respiratory distress. Breath sounds normal. No Wheezing. No rales , oxygen saturation 100% on room air Abdomen: Soft and nontender. No rigidity. No distention. Skin: Skin warm and dry. Normal skin color. Normal skin turgor. Extremities: No lower extremity edema. No Lacerations. No Rash Neuro: Oriented X 3. No motor deficit. No sensory deficit. Moving all extremities. No slurred speech. CN 2 through 12 grossly intact Psych: calm, hyperventilating, having a panic attack Course Course Course Narrative: -patient is having a panic attack, given 2 mg of p.o. Ativan -patient will be tested for COVID and influenza. Patient's lung sounds are completely clear, oxygen saturation 100% on room air Medications Administered Discontinued Medications Generic Name Dose Route Start Last Admin Trade Name Freq PRN Reason Stop Dose Admin Lorazepam 2 mg 07/17/23 13:39 07/17/23 13:58 Lorazepam 1 Mg Tablet PO 07/17/23 13:40 2 mg ONCE ONE Administration Medical Decision Making Medical Decision Making [facility] Narrative: -I discussed the labs with the patient, my interpretation of labs: Negative for influenza and COVID. -patient was given p.o. Ativan, patient feeling much better, all vitals stable. Differential Diagnosis Differential Diagnoses: The differential diagnosis associated with the presentation includes (Viral illness, anxiety, influenza, COVID) Lab Data [facility] Lab Attestation statement: I reviewed the patient's lab results. Labs: Lab Results 07/17/23 Range/Units 14:02 COVID-19 ([facility]) Negative (Negative) COVID-19 Clin Com See Note Influenza Type A ([facility]) Negative (Negative) Influenza Type B ([facility]) Negative (Negative) Influenza A & B Note See Note Discharge Plan Discharge Clinical Impression: Viral illness, Anxiety Patient Disposition: Home, Self-Care Instructions: Viral Syndrome (ED), Anxiety (ED) Additional Instructions: Please follow-up with your primary care physician tomorrow. If you have any worsening or new symptoms, please return to the emergency room or call 911 Prescriptions: No Action prednisone 20 mg tablet 40 mg PO DAILY Qty: 10 0RF diphenhydramine HCl [Benadryl] 25 mg capsule 25 mg PO Q4H PRN (Reason: itching) Qty: 20 0RF hydrocortisone [Anti-Itch (HC)] 1 % cream 1 appl topical TID 5 Days Qty: 28.35 0RF lisinopril 20 mg tablet 20 mg PO BID metoprolol succinate 25 mg tablet extended release 24 hr 12.5 mg PO DAILY gabapentin 300 mg capsule 300 mg PO TID
[2023-07-17 13:46] VITALS: BP 146/74; BP 178/100; PULSE 102; PULSE 99; RESP 17; TEMP 36.9; O2SAT 98; O2SAT 99; BMI 45.0
[2023-07-17] MEDS: LORazepam 1 MG TABLET 2 MG PO (13:58)
[2023-07-17 14:03] VITALS: BP 148/90; PULSE 93; RESP 22; O2SAT 97
[2023-07-17 14:34] VITALS: TEMP 37.2
[2023-07-17 14:44] LABS: IDNOW Serial# 9DB6401D; Influenza A Negative (Negative); Influenza B2 Negative (Negative)
[2023-07-17 14:45] LABS: COVID-19 Test Negative (Negative); IDNOW Serial# BCCEAD1C
[2023-07-17] MEDS: Acetaminophen 325 MG TABLET 975 MG PO (15:35)
[2023-07-17 15:36] VITALS: BP 145/72; PULSE 98; RESP 13; TEMP 37; O2SAT 95
== END 2023-07-17 16:09 | disposition home or self-care (01) ==
PROVIDERS: Emergency Provider Emergency Medicine; PCP Internal Medicine
DX: B34.9 Viral infection, unspecified (principal); F41.0 Panic disorder [episodic paroxysmal anxiety]; R06.02 Shortness of breath; I10 Essential (primary) hypertension; Z11.52 Encounter for screening for COVID-19; Z87.891 Personal history of nicotine dependence; Z79.899 Other long term (current) drug therapy
CPT/HCPCS: 87502; 87635; 93005; 99283; 99284

== ENCOUNTER → 2023-07-17 13:39 | Outpatient (BNV) | payer OTHER, SELFPAY | PROVIDERS: Emergency Provider Emergency Medicine; PCP Internal Medicine; Visit Provider Internal Medicine Cardiovascular Disease | DX: R94.31 Abnormal electrocardiogram [ECG] [EKG] (principal) | CPT/HCPCS: 93010 ==

== ENCOUNTER 2023-08-14 14:43 | Outpatient (AMB) | payer OTHER, SELFPAY ==
[2023-08-14 14:48] VITALS: BMI 45.0
--- NOTE | 2023-08-14 14:48 | A.OFFVIS_ITS ---
Intake Vital Signs 08/14/23 14:48 Height 5 ft 4 in Weight 262 lb BMI 45.0 Intake Visit Reasons: Newprob-Bilateral Carpal Tunnel Syndrome Intake Note: Nancie 52 yr old right hand dominant female presents today for a new problem visit for Bilateral Carpal Tunnel Syndrome. Hx of left hand CTR 05/16/12 & right hand CTR 11/23/11. No recent EMG done. Patient reports that she has had pain numbness and tingling in both of her hands return over the last, right hand is worse than the left. She is frequently dropping things . Reports a fall 4 days ago falling on the right hand, she is requesting xrays. Allergies ibuprofen [From MOTRIN] Allergy (Unknown, Verified 07/04/23 10:36) UPSET STOMACH, stomach upset, stomach upset tramadol [TRAMADOL] Allergy (Unknown, Verified 07/04/23 10:36) UPSET STOMACH, nausea and vomiting Pt states no food allergies Allergy (Unknown, Uncoded 07/04/23 10:36) unknown HPI Newprob-Bilateral Carpal Tunnel Syndrome HPI Details Nancie is a 52 year old right hand dominant woman who presents to discuss her bilateral hand numbness & right hand pain. She complains of numbness in the thumb, index, and middle fingers bilaterally, R>L. She has a hx of bilateral carpal [place] [address] Hall. She says following her surgery her sensation improved bilaterally but she began to have worsening numbness ~[ ] ago. She also complains of weakness and says she drops things she is holding. She denies any recent NCS. She also complains of right hand pain after a fall on ~08/10/23. She says her knee locked on her when she was using some stairs, and she was unable to hold onto the railing before she fell. She complains of pain primarily on the back of her hand, along her knuckles. [facility] Medical History (Updated 08/14/23 @ 15:39 by Alexandru Gutierres) Panic attack Carpal tunnel syndrome Osteoarthritis Fibromyalgia HTN (hypertension) Surgical History (Updated 08/14/23 @ 15:12 by Alexandru Gutierres) Hx of section Hx of cholecystectomy Hx of tubal ligation Family History Mother HTN (hypertension) Sister Ovarian cancer Maternal Aunt Breast cancer Social History Household Members: Children Housing: Condominium Alcohol intake: current Alcohol intake frequency: holidays/special occasions only Patient Tobacco Use Status: Former Tobacco user Advance Directives Date on File: 05/12/20 service: No Current occupational status: disabled Current occupation: rt hand Sexual orientation: Straight/Heterosexual Gender identity: Female Review of Systems Const All systems reviewed & are unremarkable except as noted in HPI and below Physical Exam Vital Signs: BMI result Body Mass Index 45.0 Const General: cooperative, healthy appearing and no acute distress Orientation/consciousness: patient oriented x3 HEENT Head: Yes normocephalic and Yes atraumatic Eyes EOM: EOMs intact bilaterally Resp Effort & Inspection: normal respiratory effort and able to speak in complete sentences Cardio Jugular venous distension: no JVD Skin General skin exam: turgor normal Rashes: no rashes Neuro General: patient oriented x3 Extrem Other: Evaluation of Bilateral Upper Extremity: The patient is alert, oriented, and in no acute distress Neuro: On the right side she has decreased subjective sensation in the thumb index and middle fingers. Normal sensation to the right small finger and ring finger On the left side she has normal sensation to all digits. She does however have problem with intermittent but daily numbness and tingling in the median nerve distribution of the left hand per patient. No thenar or intrinsic wasting Vascular: Cap refill brisk ROM: Smooth and painless wrist ROM Full and symmetrical pronosupination Skin: No lacerations or abrasions. General: No Ecchymosis. No Erythema or evidence of infection. She has got some mild tenderness over the index middle and ring finger MCP joints dorsally. She can bring all of them out into full extension. With encouragement I can get her to bring all her fingers closed to week fist. I did not appreciate any extensor tendon subluxation. No locking or catching. Radiographs: 3 views of the right hand were taken and viewed by me today in clinic. Psych Appearance: grossly normal Affect: normal affect Attitude: cooperative Office Procedures Fracture Care Details: Fracture care 37821 Fracture Billing Code: Fracture Billing Code Assessment & Plan Assessment & Plan (1) Bilateral hand numbness: Code(s): R20.0 - Anesthesia of skin (2) History of carpal tunnel surgery of right wrist: Code(s): Z98.890 - Other specified postprocedural states (3) History of carpal tunnel surgery of left wrist: Code(s): Z98.890 - Other specified postprocedural states (4) Fibromyalgia: Code(s): M79.7 - Fibromyalgia (5) Nondisplaced fracture of third metacarpal bone of right hand: Code(s): S62.302A - Unspecified fracture of third metacarpal bone, right hand, initial encounter for closed fracture Plan Assessment & Plan: 1. Bilateral hand numbness, S/P bilateral carpal tunnel releases in 2012 In the median nerve distribution Symptoms intermittent, but daily, worse at night, persistent numbness in the right index & middle fingers Hx of bilateral carpal tunnel release: Right: 11/23/11, by Dr. Hall Left: 05/16/12, by Dr. Hall I ordered a new NCS to assess for recurrent peripheral nerve compression She will follow up when completed for review 2. Right 3rd metacarpal head fracture, non-displaced From a fall, DOI: ~08/10/23 I discussed activity modifications, [she] is to lift nothing heavier than a cellphone for the next two weeks I showed her some gentle ROM exercises for her to perform at-home Her middle and ring fingers were palomo-taped and we fitted her with a Velcro wrist splint to wear with activities outside the home. She will follow up in 3 weeks with new radiographs three views of the right hand Please note that greater than 30 minutes was spent with this patient going over the history, evaluating the patient and radiographs, formulating possible treatment options, discussing them with the patient, and documenting the visit. Scribed for Myrna Rachel MD by Alexnadru Gutierres, medical office administrator, on 08/14/23 at 3:15 PM, EST. Orders: Orders XR hand RT min 3V Today M79.641 - Pain in right hand NE nerve conduction velocity Today R20.0 - Anesthesia of skin, R20.2 - Paresthesia of skin Coding Level of Care Code New Pt Level 3 (93727) Diagnoses Bilateral hand numbness R20.0 History of carpal tunnel surgery of right wrist Z98.890 History of carpal tunnel surgery of left wrist Z98.890 Fibromyalgia M79.7 Nondisplaced fracture of third metacarpal bone of right hand S62.302A CPT Codes Fracture Care - Fracture Billing Code: Fracture Billing Code ([id number])
== END 2023-08-14 15:51 | disposition home or self-care (01) ==
PROVIDERS: PCP Internal Medicine; Visit Provider Orthopaedic Surgery
DX: R20.0 Anesthesia of skin (principal); M79.7 Fibromyalgia; S62.302A Unspecified fracture of third metacarpal bone, right hand, initial encounter for closed fracture; W19.XXXA Unspecified fall, initial encounter
CPT/HCPCS: 26600; 99203

== ENCOUNTER 2023-08-14 14:43 | Outpatient (REF) | payer OTHER, SELFPAY ==
--- NOTE | ~2023-08-14 | XR_ITS ---
EXAMINATION: XR HAND, RIGHT CLINICAL INFORMATION: Right hand pain. COMPARISON: Right hand 02/08/2020 TECHNIQUE: PA, lateral, and oblique views of the right hand. FINDINGS: The bones and soft tissues are unremarkable aside from some minimal degenerative changes at the first CMC joint and first MCP joint. Incidental note made of a carpal boss. No fracture. Alignment is anatomic. Joint spaces are otherwise maintained. No erosions or soft tissue calcifications. XR/XR hand RT min 3V IMPRESSION: Minimal degenerative changes at the first CMC joint and first MCP joint.
== END 2023-08-14 14:44 | disposition home or self-care (01) ==
LOC: HO.HOSX 14:43
PROVIDERS: PCP Internal Medicine; Visit Provider Orthopaedic Surgery
DX: S62.302A Unspecified fracture of third metacarpal bone, right hand, initial encounter for closed fracture (principal); R20.0 Anesthesia of skin; Z98.890 Other specified postprocedural states
CPT/HCPCS: 26600; 73130; 99202

== ENCOUNTER 2023-09-20 09:53 | Outpatient (REF) | payer OTHER, SELFPAY ==
--- NOTE | 2023-09-20 09:56 | EMG_ITS ---
Chief complaint: 1-2 years of hand numbness and pain, affecting left worse than right, affecting 3rd and 4th digits. Hx of bilateral carpal tunnel release: Right: 11/23/11, by Dr. Hall Left: 05/16/12, by Dr. Hall EMG report by Dr. 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 Findings are not as bad as they were in 2009, before the surgery. Past NCS tables were not available for my review. Reason for referral: Evaluate for recurrent Carpal Tunnel Syndrome Referred by: Dr. Rachel Procedure done: Bilateral upper extremities NCS/EMG Precautions and/or limitations: Past Carpal Tunnel Syndrome surgeries The limb temperature was monitored continuously and remained between 32-36 degrees C during the performance of the NCS. Nerve Conduction Studies Anti Sensory Summary Table ?Stim Site NR Onset (ms) Norm Onset (ms) Peak (ms) Norm Peak (ms) O-P Amp (?V) Norm O-P Amp Site1 Site2 Delta-0 (ms) Dist (cm) Henry (m/s) Norm Henry (m/s) Left Median Anti Sensory (2nd Digit) Wrist ? 2.6 3.3 <3.6 35.1 >10 Wrist 2nd Digit 2.6 14.0 54 Right Median Anti Sensory (2nd Digit) Wrist ? 2.7 3.6 27.7 Left Ulnar Anti Sensory (5th Digit) Wrist ? 2.0 2.8 25.9 Right Ulnar Anti Sensory (5th Digit) Wrist ? 2.3 3.0 <3.7 26.4 >15.0 Wrist 5th Digit 2.3 14.0 61 Motor Summary Table ?Stim Site NR Onset (ms) Norm Onset (ms) O-P Amp (mV) Norm O-P Amp iAmp (mV) Amp (1st) (%) Site1 Site2 Delta-0 (ms) Dist (cm) Henry (m/s) Norm Henry (m/s) Left Median Motor (Abd Poll Brev) Wrist ? 3.5 <3.9 9.7 >4.5 11.3 100.0 Elbow Wrist 4.1 21.5 52 >45 Elbow ? 7.6 9.4 11.1 96.9 Right Median Motor (Abd Poll Brev) Wrist ? 3.8 <3.9 11.7 >4.5 14.5 100.0 Elbow Wrist 3.7 20.0 54 >45 Elbow ? 7.5 11.1 13.8 94.9 Left Ulnar Motor (Abd Dig Minimi) Wrist ? 2.6 <3.0 7.5 >5 8.9 100.0 B Elbow Wrist 3.0 20.5 68 >45 B Elbow ? 5.6 8.5 10.2 113.3 A Elbow B Elbow 1.4 10.0 71 >45 A Elbow ? 7.0 8.5 10.1 113.3 Right Ulnar Motor (Abd Dig Minimi) Wrist ? 3.0 <3.0 8.9 >5 10.6 100.0 B Elbow Wrist 2.7 17.0 63 >45 B Elbow ? 5.7 9.7 11.4 109.0 A Elbow B Elbow 1.3 10.0 77 >45 A Elbow ? 7.0 9.5 11.7 106.7 Comparison Summary Table ?Stim Site NR Peak (ms) Norm Peak (ms) P-T Amp (?V) Site1 Site2 Delta-P (ms) Norm Delta (ms) Left Median/Radial Dig I Comparison (Digit 1 - 10cm) Median ? 2.8 <2.9 60.3 Median Radial 0.3 Radial ? 2.5 <2.8 22.0 Right Median/Radial Dig I Comparison (Digit 1 - 10cm) Median ? 3.1 <2.9 43.2 Median Radial 0.8 Radial ? 2.3 <2.8 8.8 EMG ?Side Muscle Nerve Root Ins Act Fibs Psw Amp Dur Poly Recrt Int Pat Comment Right 1stDorInt Ulnar C8-T1 Nml Nml Nml Nml Nml 0 Nml Complete Right FlexCarRad Median C6-7 Nml Nml Nml Nml Nml 0 Nml Complete Right Biceps Musculocut C5-6 Nml Nml Nml Nml Nml 0 Nml Complete Right Triceps Radial C6-7-8 Nml Nml Nml Nml Nml 0 Nml Complete Right Deltoid Axillary C5-6 Nml Nml Nml Nml Nml 0 Nml Complete Left 1stDorInt Ulnar C8-T1 Nml Nml Nml Nml Nml 0 Nml Complete Left FlexCarRad Median C6-7 Nml Nml Nml Nml Nml 0 Nml Complete Left Biceps Musculocut C5-6 Nml Nml Nml Nml Nml 0 Nml Complete Left Triceps Radial C6-7-8 Nml Nml Nml Nml Nml 0 Nml Complete Left Deltoid Axillary C5-6 Nml Nml Nml Nml Nml 0 Nml Complete Paraspinal EMG ?Side Muscle Nerve Root Ins Act Fibs Psw Comment Right Cervical Upper Rami Nml Nml Nml Right Cervical Mid Rami Nml Nml Nml Right Cervical Lower Rami Nml Nml Nml Left Cervical Upper Rami Nml Nml Nml Left Cervical Mid Rami Nml Nml Nml Left Cervical Lower Rami Nml Nml Nml FINDINGS: Significant interlatency difference seen between right median and radial sensory nerves. Normal on left. Otherwise, all other motor and sensory nerves tested showed normal latencies, amplitudes and conduction velocities. Concentric needle EMG was performed in selected muscles of the bilateral upper extremities and cervical paraspinals. Study did not reveal signs of electric abnormalities as shown in the table below. IMPRESSION: 1. This is an abnormal study. 2. 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 3. There is no electrodiagnostic evidence for ulnar neuropathy, brachial plexopathy, or cervical radiculopathy. No median neuropathy on left. Thank you for your kind referral. Tori Martinez MD, DAX Board Certified, [place] [employer] and [employer] (ABPMR) Board Certified, [place] [employer] Electro[employer]ostic [employer] (ABEM) CODIN 26520 x 2 MTDD
== END 2023-09-20 09:54 | disposition home or self-care (01) ==
LOC: HO.NEURO 09:53
PROVIDERS: PCP Internal Medicine; Visit Provider Orthopaedic Surgery
DX: R20.0 Anesthesia of skin (principal); R20.2 Paresthesia of skin
CPT/HCPCS: 95886; 95911

== ENCOUNTER → 2023-09-20 09:56 | Outpatient (BNV) | payer OTHER, SELFPAY | PROVIDERS: PCP Internal Medicine; Visit Provider Physical Medicine & Rehabilitation | DX: M79.641 Pain in right hand (principal); S64.11XA Injury of median nerve at wrist and hand level of right arm, initial encounter; M79.642 Pain in left hand; R20.2 Paresthesia of skin | CPT/HCPCS: 95886; 95911 ==

== ENCOUNTER 2023-10-29 12:36 | Outpatient (AMB) | payer OTHER, SELFPAY ==
[2023-10-29 12:51] VITALS: BMI 45.0
--- NOTE | 2023-10-29 12:51 | A.OFFVIS_ITS ---
Intake Vital Signs 10/29/23 12:51 Height 5 ft 4 in Weight 262 lb BMI 45.0 Intake Visit Reasons: OV - B/L knee OA, last inj 07/04/23 Intake Note: Nancie is a 52 year old female who presents for bilateral knee OA, last injections 07/04/23. She reports her last injections gave her 3 months of relief. She would like to repeat her injections. Allergies ibuprofen [From MOTRIN] Allergy (Unknown, Verified 10/29/23 12:51) UPSET STOMACH, stomach upset, stomach upset tramadol [TRAMADOL] Allergy (Unknown, Verified 10/29/23 12:51) UPSET STOMACH, nausea and vomiting Pt states no food allergies Allergy (Unknown, Uncoded 07/04/23 10:36) unknown HPI OV - B/L knee OA, last inj 07/04/23 HPI Details 52-year-old female who presents in the [facility] today for a follow up of bilateral knee pain. I last saw the patient on 07/04/2023 at which time she received a cortisone injection in the bilateral knees. Patient reports the injection gave her three months of relief. She is interested in repeating the cortisone injections today. [facility] Medical History (Updated 08/14/23 @ 15:39 by Alexandru Gutierres) Panic attack Carpal tunnel syndrome Osteoarthritis Fibromyalgia HTN (hypertension) Surgical History (Updated 08/14/23 @ 15:12 by Alexandru Gutierres) Hx of section Hx of cholecystectomy Hx of tubal ligation Family History Mother HTN (hypertension) Sister Ovarian cancer Maternal Aunt Breast cancer Social History Household Members: Children Housing: Condominium Alcohol intake: current Alcohol intake frequency: holidays/special occasions only Patient Tobacco Use Status: Former Tobacco user Advance Directives Date on File: 05/12/20 service: No Current occupational status: disabled Current occupation: rt hand Sexual orientation: Straight/Heterosexual Gender identity: Female Review of Systems Const All systems reviewed & are unremarkable except as noted in HPI and below Physical Exam Vital Signs: BMI result Body Mass Index 45.0 Const General: cooperative, healthy appearing and no acute distress Resp Effort & Inspection: normal respiratory effort and able to speak in complete sentences Cardio Rate: regular rate Peripheral pulses: Peripheral pulses 2+ throughout GI Palpation (GI): Soft to palpation Skin Lesions: no lesions Rashes: no rashes Extrem Other: Bilateral knees: Normal to inspection. No ecchymosis, erythema, or joint effusion. Full ROM bilaterally. No tenderness at the medial and lateral joint lines. Negative Radha's. NVI. Office Procedures Joint Injection/Drain Joint Injection/Drain Primary Site: right knee Secondary Site: left knee Injected: 80 mg of, DepoMedrol, with 8 mL of (2% plain lido ) and in the joint Approach Used: anterolateral Procedure: The patient tolerated the procedure well, but had some pain with the injection and there was some relief with the local anesthesia Coding - Large joint Procedure code (CPT) selection complete Assessment & Plan Assessment & Plan (1) Bilateral primary osteoarthritis of knee: Code(s): M17.0 - Bilateral primary osteoarthritis of knee Plan Ms. Cuevas is a 52-year-old female who presents in the office today for a follow up of bilateral knee pain. I last saw the patient on 07/04/2023 at which time she received a cortisone injection in the bilateral knees. Patient reports the injection gave her three months of relief. She is interested in repeating the cortisone injections today. The patient was offered a cortisone injection in the bilateral knees with 80mg of DepoMedrol. The patient was explained the risk, benefits, and alternatives to receiving this injection. After receiving consent for the injection, the patient had the procedure done while in the office today. The patient tolerated the procedure well with no complications.? Follow up will be PRN, or sooner if needed. Patient Instructions: Scribed by Nava Estrada medical records specialist, for Virginia Stout PA-C on 10/29/2023 at 12:50 pm, EST. Coding Level of Care Code Est Pt Level 3 (00556) Diagnoses Bilateral primary osteoarthritis of knee M17.0 CPT Codes Coding - Large joint: 06456 - Large joint ([id number])
== END 2023-10-29 13:09 | disposition home or self-care (01) ==
PROVIDERS: PCP Internal Medicine; Visit Provider Physician Assistant
DX: M17.0 Bilateral primary osteoarthritis of knee (principal)
CPT/HCPCS: 20610; 99213

== ENCOUNTER → 2023-10-29 12:36 | Outpatient (BNVA) | payer OTHER, SELFPAY | PROVIDERS: PCP Internal Medicine; Visit Provider Physician Assistant | DX: M17.0 Bilateral primary osteoarthritis of knee (principal) | CPT/HCPCS: 20610; 99212; J1040 ==

== ENCOUNTER 2023-11-05 13:30 | Outpatient (AMB) | payer OTHER, SELFPAY ==
--- NOTE | 2023-11-05 13:42 | MHC.OFFVIS ---
Intake Vital Signs 11/05/23 13:43 Height 5 ft 4 in Weight 262 lb BMI 45.0 Intake Visit Reasons: ov-bilateral hand numbness EMG review Intake Note: Nancie 52 yr old female presents today for her EMG review for bilateral hands. Patient states she would like to move forward with surgery. Allergies ibuprofen [From MOTRIN] Allergy (Unknown, Verified 11/05/23 13:45) UPSET STOMACH, stomach upset, stomach upset tramadol [TRAMADOL] Allergy (Unknown, Verified 11/05/23 13:45) UPSET STOMACH, nausea and vomiting Pt states no food allergies Allergy (Unknown, Uncoded 11/05/23 13:45) unknown HPI ov-bilateral hand numbness EMG review HPI Details Nancie is a 52 year old right hand dominant woman who returns for a NCS review of her bilateral hand numbness. She complains of numbness in the thumb, index, and middle fingers bilaterally, R>L. She has a hx of bilateral carpal [place] [address] Hall. She says following her surgery her sensation improved bilaterally but she began to have worsening numbness a few years following this surgery. She also complains of weakness and says she drops things she is holding. She complains of bilateral hand pain & stiffness. She says she has been doing some water exercises at home but continues to be limited in her activities. She had a right 3rd metacarpal neck fracture, after a fall, DOI: 08/10/23. She has Fibromyalgia and takes 40mg Prednisone daily PFSH Medical History (Updated 08/14/23 @ 15:39 by Alexandru Gutierres) Panic attack Carpal tunnel syndrome Osteoarthritis Fibromyalgia HTN (hypertension) Surgical History Hx of section Hx of cholecystectomy Hx of tubal ligation Family History Mother HTN (hypertension) Sister Ovarian cancer Maternal Aunt Breast cancer Social History Household Members: Children Housing: Condominium Alcohol intake: current Alcohol intake frequency: holidays/special occasions only Patient Tobacco Use Status: Former Tobacco user Advance Directives Date on File: 05/12/20 service: No Current occupational status: disabled Current occupation: rt hand Sexual orientation: Straight/Heterosexual Gender identity: Female Physical Exam Vital Signs: BMI result Body Mass Index 45.0 Extrem Other: Evaluation of Bilateral Upper Extremity: The patient is alert, oriented, and in no acute distress Neuro: On the right side she has decreased subjective sensation in the median nerve distribution Normal sensation to the right ulnar nerve distribution On the left side she has normal sensation to all digits. She does however have problem with intermittent but daily numbness and tingling in the median nerve distribution of the left hand per patient. No thenar or intrinsic wasting Vascular: Cap refill brisk ROM: Smooth and painless wrist ROM Full and symmetrical pronosupination She has got some mild tenderness over the index middle and ring finger MCP joints dorsally. She can bring all of them out into full extension. With encouragement I can get her to bring all her fingers closed to week fist. I did not appreciate any extensor tendon subluxation. No locking or catching. Radiographs: 3 views of the right hand were taken and viewed by me today in clinic. They show a healed 3rd metacarpal head fracture with satisfactory fracture alignment. Nerve Conduction study: Bilateral IMPRESSION: 1. This is an abnormal study. 2. 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 3. There is no electrodiagnostic evidence for ulnar neuropathy, brachial plexopathy, or cervical radiculopathy. No median neuropathy on left. Tori Martinez MD, DAX 09/20/23 Assessment & Plan Assessment & Plan (1) History of carpal tunnel surgery of right wrist: Code(s): Z98.890 - Other specified postprocedural states (2) History of carpal tunnel surgery of left wrist: Code(s): Z98.890 - Other specified postprocedural states (3) Fibromyalgia: Code(s): M79.7 - Fibromyalgia (4) Nondisplaced fracture of third metacarpal bone of right hand: Code(s): S62.302A - Unspecified fracture of third metacarpal bone, right hand, initial encounter for closed fracture Plan Assessment & Plan: 1. Right carpal tunnel syndrome, very mild, recurrence S/P carpal tunnel release Symptoms intermittent, but daily, worse at night, persistent numbness in the index & middle fingers Hx of bilateral carpal tunnel release: Right: 11/23/11, by Dr. Hall Left: 05/16/12, by Dr. Hall I educated her about this condition I discussed operative and non-operative treatment options The patient would like to proceed with surgery The risks and benefits of operative treatment were discussed with the patient and the patient wishes to proceed with surgery. These risks include, but are not limited to risk of damage to blood vessels, nerves, tendons, infection, recurrence, incomplete relief of preoperative symptoms, persistent pain, possible need for further surgery and the risks associated with regional blocks and anesthesia. The plan is to take the patient to the operating room sometime in the next few weeks for the following procedures: 1. Right REPEAT carpal tunnel release, under local All of the preoperative paperwork including the consent was reviewed today. All the patient's questions were answered. The patient understands that they will be contacted by our equipment scheduler soon to schedule this procedure She denies Diabetes, blood thinners, asthma, heart, lung, kidney issues She has Fibromyalgia and is on Prednisone 2. Left hand numbness In the median nerve distribution Symptoms intermittent, but daily, worse at night Recent NCS done on 09/20/23 showed no evidence of carpal tunnel syndrome or cervical radiculopathy. All findings regarding the left side were normal 3. Right 3rd metacarpal head fracture, non-displaced From a fall, DOI: ~08/10/23 Went on to heal well Scribed for Myrna Rachel MD by Alexandru Gutierres, medical chief technician, on 11/05/23 at 2:15 PM, EST. Orders: Orders XR hand RT min 3V Today M79.641 - Pain in right hand Coding Level of Care Code Est Pt Level 4 (41960) Diagnoses History of carpal tunnel surgery of right wrist Z98.890 History of carpal tunnel surgery of left wrist Z98.890 Fibromyalgia M79.7 Nondisplaced fracture of third metacarpal bone of right hand S62.302A
[2023-11-05 13:43] VITALS: BMI 45.0
== END 2023-11-05 14:25 | disposition home or self-care (01) ==
PROVIDERS: PCP Internal Medicine; Visit Provider Orthopaedic Surgery
DX: G56.01 Carpal tunnel syndrome, right upper limb (principal); M79.7 Fibromyalgia; S62.302D Unspecified fracture of third metacarpal bone, right hand, subsequent encounter for fracture with routine healing
CPT/HCPCS: 99214

== ENCOUNTER 2023-11-05 13:30 | Outpatient (REF) | payer OTHER, SELFPAY ==
--- NOTE | ~2023-11-05 | XR_ITS ---
EXAMINATION: XR HAND, RIGHT CLINICAL INFORMATION: Pain. COMPARISON: Radiographs dated 08/14/2023. TECHNIQUE: PA, lateral, and oblique views of the right hand. FINDINGS: Bony alignment and mineralization are normal. There is a neutral ulnar variance. There is mild osteoarthritic change of the first carpometacarpal joint. There is very mild osteoarthritic change of the first through fourth metacarpophalangeal joints. No fracture or dislocation is seen. There is no abnormal bone erosion. The proximal and distal carpal rows are intact. No focal soft tissue swelling, gas or foreign body is seen. XR/XR hand RT min 3V IMPRESSION: There is mild osteoarthritic change of the right hand and wrist, as detailed. No fracture or dislocation is seen. There is no abnormal bone erosion.
== END 2023-11-05 13:31 | disposition home or self-care (01) ==
LOC: HO.HOSX 13:30
PROVIDERS: PCP Internal Medicine; Visit Provider Orthopaedic Surgery
DX: S62.302D Unspecified fracture of third metacarpal bone, right hand, subsequent encounter for fracture with routine healing (principal); M79.641 Pain in right hand; R20.0 Anesthesia of skin; M79.7 Fibromyalgia; W19.XXXD Unspecified fall, subsequent encounter; Z98.890 Other specified postprocedural states
CPT/HCPCS: 73130; 99212

== ENCOUNTER 2023-11-20 14:45 | Outpatient (REF) | payer OTHER, SELFPAY ==
--- NOTE | ~2023-11-20 | US_ITS ---
EXAMINATION: US VENOUS ULTRASOUND WITH DOPPLER LOWER EXTREMITY, RIGHT CLINICAL INFORMATION: Pain COMPARISON: None available. TECHNIQUE: Ultrasound of the deep veins is performed from the hip to the calf with compression sonography and color and pulse Doppler assessment. Spectral analysis with color-flow imaging is performed. FINDINGS: There is normal venous compression and respiratory variation and augmented flow. The visualized common femoral vein, superficial femoral vein, profunda femoral vein, popliteal vein, and the trifurcation region shows no evidence of deep venous thrombosis. There is no significant popliteal fossa cyst. US/US venous duplex LE RT IMPRESSION: No DVT demonstrated in the right lower extremity.
== END 2023-11-20 14:46 | disposition home or self-care (01) ==
LOC: HO.US 14:45
PROVIDERS: PCP Internal Medicine; Visit Provider Internal Medicine
DX: M79.604 Pain in right leg (principal)
CPT/HCPCS: 93971

== ENCOUNTER 2024-01-30 12:28 | Outpatient (AMB) | payer OTHER, SELFPAY ==
--- NOTE | 2024-01-30 12:41 | MHC.OFFVIS ---
Intake Visit Reasons: OV - B/L knee OA, last inj 10/29/23 Intake Note: Nancie is a 53 year old female who presents today for a follow up for bilateral knee OA, last injections 10/29/23. Patient reports last injections provided her with relief for about 3 months. She is requesting to repeat injection. Allergies ibuprofen [From MOTRIN] Allergy (Unknown, Verified 01/30/24 13:01) UPSET STOMACH, stomach upset, stomach upset tramadol [TRAMADOL] Allergy (Unknown, Verified 01/30/24 13:01) UPSET STOMACH, nausea and vomiting Pt states no food allergies Allergy (Unknown, Uncoded 01/30/24 13:01) unknown HPI HPI OV - B/L knee OA, last inj 10/29/23: Details: 53-year-old right hand dominant female who presents in the office today for a follow-up of bilateral knee osteoarthritis. I last saw the patient in the office on 10/29/2023 when she was given cortisone injections in the bilateral knees. ? ? Patient has a medical history of fibromyalgia. ? [facility] Medical History (Updated 08/14/23 @ 15:39 by Alexandru Gutierres) Panic attack Carpal tunnel syndrome Osteoarthritis Fibromyalgia HTN (hypertension) Surgical History Hx of section Hx of cholecystectomy Hx of tubal ligation Family History Mother HTN (hypertension) Sister Ovarian cancer Maternal Aunt Breast cancer Social History Household Members: Children Housing: Condominium Alcohol intake: current Alcohol intake frequency: holidays/special occasions only Patient Tobacco Use Status: Former Tobacco user Advance Directives Date on File: 05/12/20 service: No Current occupational status: disabled Current occupation: rt hand Sexual orientation: Straight/Heterosexual Gender identity: Female Review of Systems Const All systems reviewed & are unremarkable except as noted in HPI and below Physical Exam Const General: cooperative, healthy appearing and no acute distress Resp Effort & Inspection: normal respiratory effort and able to speak in complete sentences Cardio Rate: regular rate Peripheral pulses: Peripheral pulses 2+ throughout GI Palpation (GI): Soft to palpation Skin Lesions: no lesions Rashes: no rashes Extrem Other: Bilateral knees: Normal to inspection. No ecchymosis, erythema, or joint effusion. Full ROM bilaterally. No tenderness at the medial and lateral joint lines. Negative Radha's. NVI. Office Procedures Joint Injection/Drain Joint Injection/Drain Primary Site: right knee Secondary Site: left knee Prep: site was prepped using aseptic technique, ethochloride spray was applied and injection warnings given Injected: 80 mg of, DepoMedrol, with 8 mL of (2% plain lido ) and in the joint Approach Used: anterolateral Procedure: The patient tolerated the procedure well, but had some pain with the injection and there was some relief with the local anesthesia Coding - Large joint Procedure code (CPT) selection complete Assessment & Plan Assessment & Plan (1) Bilateral primary osteoarthritis of knee: Code(s): M17.0 - Bilateral primary osteoarthritis of knee Category: Medical Plan Ms. Cuevas is a 53-year-old right hand dominant female who presents in the office today for a follow-up of bilateral knee osteoarthritis. I last saw the patient in the office on 10/29/2023 when she was given cortisone injections in the bilateral knees. ? ? Patient has a medical history of fibromyalgia.? The patient was offered a cortisone injection in the bilateral knees with 80 mg of DepoMedrol. The patient was explained the risks, benefits, and alternatives to receiving this injection. After receiving consent for the injection, the patient had the procedure done while in the office today. The patient tolerated the procedure well with no complications.? ? Follow-up will be PRN, or sooner if needed. ? Patient Instructions: Scribed by Nava Estrada medical officer psychiatry, for Virginia Stout PA-C on 01/30/2024 at 1:00 pm, EST.? Coding Level of Care Code Est Pt Level 3 (28633) Diagnoses Bilateral primary osteoarthritis of knee M17.0 CPT Codes Coding - Large joint: 09354 - Large joint ([id number])
== END 2024-01-30 13:01 | disposition home or self-care (01) ==
PROVIDERS: PCP Internal Medicine; Visit Provider Physician Assistant
DX: M17.0 Bilateral primary osteoarthritis of knee (principal)
CPT/HCPCS: 20610; 99213

== ENCOUNTER → 2024-01-30 12:28 | Outpatient (BNVA) | payer OTHER, SELFPAY | PROVIDERS: PCP Internal Medicine; Visit Provider Physician Assistant | DX: M17.0 Bilateral primary osteoarthritis of knee (principal) | CPT/HCPCS: 20610; 99212; J1010 ==

== ENCOUNTER 2024-03-19 08:09 | Day surgery (SDC) | payer OTHER, SELFPAY ==
[2024-03-19 09:23] VITALS: BMI 44.5
--- NOTE | 2024-03-19 09:38 | P.OP_ITS ---
Operative Note Operative Note Date of Service: 03/19/24 Narrative: Preop diagnosis: 1. Recurrent right Carpal tunnel syndrome Postop diagnosis: same Procedure: 1. Repeat right Carpal tunnel release Surgeon: Myrna Rachel MD Mgmt Analyst: Jeremiah HAQUE Anesthesia: local block using 1% lidocaine with epinephrine Findings: Thickened transverse carpal ligament. EBL: Less than 5 mL Specimens: None Complications: None Disposition: Brought to recovery room in stable condition Plan: Follow-up for 10-14 days for wound check and suture removal Indications: The patient is 53 years old, with recurrent right carpal tunnel syndrome that has been unresponsive to nonoperative management. The risks and benefits of operative treatment including but not limited to risk of damage to blood vessels, nerves, tendons, infection, persistent pain, persistent symptoms, or possible need for additional surgery were discussed with the patient and the patient wishes to proceed with surgery. Procedure: Once consent was obtained a local block was performed using a c ombination of 1% lidocaine with epinephrine. The patient was then brought back to the operating suite and placed on the operative table in supine position. The right upper extremity was prepped and draped in a standard surgical fashion. Once assured that we had a good block, a 2.0 cm longitudinal incision was made centered over the carpal tunnel and extended in a zigzag fashion proximal to the distal wrist crease.. The incision was made through the skin to the subcutaneous tissues using a #15 blade. Dissection was 1st made proximally down to the volar forearm fascia. The volar forearm fascia was opened longitudinally using tenotomy scissors under direct visualization exposing the median nerve. The median nerve was then protected as we proceeded distally, and incised the scar tissue over the carpal tunnel. The scar tissue over the carpal tunnel was incised 1st using a #15 blade, then using tenotomy scissors under direct visualization. Thickened scar tissue was appreciated in the palm. Once satisfied with our carpal tunnel release the wound was copiously irrigated with normal saline and hemostasis was obtained with a brief period of local pressure. The skin edges were reapproximated with some 5.0 nylon suture material and a sterile dressing was applied. The patient appears to have tolerated the procedure well and with no complications. All digits were well vascularized at the conclusion of the case.
--- NOTE | 2024-03-19 09:38 | MHC.SHP ---
Pre-Procedural Eval Section A - 24 Hr Update-Section A only Date of Service: 03/19/24 The patient is an INPATIENT: No Changes since office visit: No Cold of Flu in the past 2 weeks, No New Medical Problems, No Changes in Medication and No Patient answered all questions The patient has been examined within 24 hours of the surgical procedure. The History & Physical has been completed within 30 days and I have reviewed it.: Yes Section B - Complete if H&P > 30 days Chief Complaint: Carpal tunnel syndrome, right upper limb repeat Allergies: Allergies Allergy/AdvReac Type Severity Reaction Status Date / Time ibuprofen [From MOTRIN] Allergy Unknown UPSET Verified 01/30/24 13:01 STOMACH, stomach upset, stomach upset tramadol [TRAMADOL] Allergy Unknown UPSET Verified 01/30/24 13:01 STOMACH, nausea and vomiting Pt states no food allergies Allergy Unknown unknown Uncoded 01/30/24 13:01 Exam Exam Comment: Patient for repeat right carpal tunnel release Plan Diagnosis/Plan: Unchanged I have reviewed the history and physical and performed a pertinent physical examination on my patient. No changes have occurred unless specified. Time Spent With Patient Time: Total time managing care of this patient today ____ minutes.
[2024-03-19 11:00] VITALS: BP 164/92; PULSE 70; RESP 18; O2SAT 98
--- NOTE | 2024-03-19 12:53 | PC.NURSE ---
11:10 ice to surgical area. patient has all discharge instructions. states has f/u appt. with surgeon
== END 2024-03-19 11:10 | disposition home or self-care (01) ==
PROVIDERS: PCP Internal Medicine; Visit Provider Orthopaedic Surgery
PROC: (CPT 64721; principal; 2024-03-19 09:30)
DX: G56.01 Carpal tunnel syndrome, right upper limb (principal); I10 Essential (primary) hypertension; Z87.891 Personal history of nicotine dependence
CPT/HCPCS: 64721; J0171

== ENCOUNTER → 2024-03-19 08:09 | Outpatient (BNV) | payer OTHER, SELFPAY | PROVIDERS: PCP Internal Medicine; Visit Provider Orthopaedic Surgery | DX: G56.01 Carpal tunnel syndrome, right upper limb (principal) | CPT/HCPCS: 64721 ==

== ENCOUNTER 2024-04-01 14:08 | Outpatient (AMB) | payer OTHER, SELFPAY ==
--- NOTE | 2024-04-01 14:09 | A.OFFVIS_ITS ---
Vital Signs 04/01/24 14:10 Height 5 ft 5 in Weight 267 lb 8 oz BMI 44.5 Intake Visit Reasons: PO-Rt Repeat CTR 03/19/24 Intake Note: Nancie is a 53 yo right hand dominant female who presents today post-operatively s/p repeat right carpal tunnel release done 03/19/[address] Rachel. Patient denies numbness and tingling. Denies locking on fingers. Reports taking Percocet as prescribed. Stitches removed in office and steri strips applied. Allergies ibuprofen [From MOTRIN] Allergy (Unknown, Verified 04/01/24 14:10) UPSET STOMACH, stomach upset, stomach upset tramadol [TRAMADOL] Allergy (Unknown, Verified 04/01/24 14:10) UPSET STOMACH, nausea and vomiting Pt states no food allergies Allergy (Unknown, Uncoded 04/01/24 14:10) unknown HPI HPI PO-Rt Repeat CTR 03/19/24: Details: Nancie is a 52 year old right hand dominant woman who returns S/P right repeat carpal tunnel release, DOS: 03/19/24 She says she is doing well and her sensation in her right hand is now normal, which she is happy about. She has a hx of bilateral carpal [place] [address] Hall. She says following her surgery her sensation improved bilaterally but she began to have worsening numbness a few years following this surgery. She also complains of weakness and says she drops things she is holding. She complains of bilateral hand pain & stiffness. She says she has been doing some water exercises at home but continues to be limited in her activities. She says her ROM of her right hand has improved following her surgery. She had a right 3rd metacarpal neck fracture, after a fall, DOI: 08/10/23. She has Fibromyalgia and takes 40mg Prednisone daily [facility] Medical History (Updated 03/19/24 @ 09:22 by Susana Velasco RN) Panic attacks Seizure Sleep apnea Panic attack Carpal tunnel syndrome Osteoarthritis Fibromyalgia HTN (hypertension) Surgical History (Updated 03/19/24 @ 09:20 by Susana Velasco RN) History of surgery History of bilateral carpal tunnel release Hx of section Hx of cholecystectomy Hx of tubal ligation Family History Mother HTN (hypertension) Sister Ovarian cancer Maternal Aunt Breast cancer Social History Household Members: Children Housing: Condominium Alcohol intake: current Alcohol intake frequency: holidays/special occasions only Comment: counts correct Patient Tobacco Use Status: Former Tobacco user Advance Directives Date on File: 05/12/20 service: No Current occupational status: disabled Current occupation: rt hand Sexual orientation: Straight/Heterosexual Gender identity: Female Review of Systems Const All systems reviewed & are unremarkable except as noted in HPI and below Physical Exam Vital Signs: BMI result Body Mass Index 44.5 Const General: no acute distress and alert Orientation/consciousness: patient oriented x3 Neuro General: patient oriented x3 Extrem Other: The patient was alert oriented and in no acute distress The incision is healing well with no erythema drainage or evidence of infection. Sutures removed and Steri-Strips applied She can make a fist and extend all her digits Sensation is intact in the right median nerve distribution Cap refill is brisk Nerve Conduction study: Bilateral IMPRESSION: 1. This is an abnormal study. 2. 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 3. There is no electrodiagnostic evidence for ulnar neuropathy, brachial plexopathy, or cervical radiculopathy. No median neuropathy on left. Tori Martinez MD, DAX 09/20/23 Psych Appearance: grossly normal Affect: normal affect Attitude: cooperative Assessment & Plan Assessment & Plan (1) History of carpal tunnel surgery of right wrist: Code(s): Z98.890 - Other specified postprocedural states Category: Surgical (2) History of carpal tunnel surgery of left wrist: Code(s): Z98.890 - Other specified postprocedural states Category: Surgical (3) Fibromyalgia: Code(s): M79.7 - Fibromyalgia Category: Medical (4) Nondisplaced fracture of third metacarpal bone of right hand: Code(s): S62.302A - Unspecified fracture of third metacarpal bone, right hand, initial encounter for closed fracture Category: Medical Plan Assessment & Plan: 1. Right carpal tunnel syndrome, S/P REPEAT carpal tunnel release DOS: 03/19/24 Pre-operative symptoms intermittent, but daily, worse at night, persistent numbness in the index & middle fingers Now with normal sensation Hx of bilateral carpal tunnel release: Right: 11/23/11, by Dr. Hall Left: 05/16/12, by Dr. Hall The patient appears to be doing well post-operatively and is happy with the results of her surgery. I educated her about the post-operative course I discussed activity modifications, she is to lift nothing heavier than a cellphone for the next two weeks She will perform gentle ROM exercises at home She should avoid any underwater activities for the next 5 days She should gently massage about the incision site to reduce the risk of hypersensitivity She can follow up prn 2. Left hand numbness In the median nerve distribution Symptoms intermittent, but daily, worse at night Recent NCS done on 09/20/23 showed no evidence of carpal tunnel syndrome or cervical radiculopathy. All findings regarding the left side were normal 3. Right 3rd metacarpal head fracture, non-displaced From a fall, DOI: ~08/10/23 Went on to heal well Scribed for Myrna Rachel MD by Alexandru Gutierres medical manager, on 04/01/24 at 2:40 PM, EST. Scribe Plan - Not visible on output: Scribed for Myrna Rachel MD by Alexandru Gutierres medical manager, on [ ] at [ ], EST. Coding Level of Care Code Global (67765) Diagnoses History of carpal tunnel surgery of right wrist Z98.890 History of carpal tunnel surgery of left wrist Z98.890 Fibromyalgia M79.7 Nondisplaced fracture of third metacarpal bone of right hand S62.302A
[2024-04-01 14:10] VITALS: BMI 44.5
== END 2024-04-01 14:47 | disposition home or self-care (01) ==
PROVIDERS: PCP Internal Medicine; Visit Provider Orthopaedic Surgery
DX: Z98.890 Other specified postprocedural states (principal); M79.7 Fibromyalgia; S62.302A Unspecified fracture of third metacarpal bone, right hand, initial encounter for closed fracture
CPT/HCPCS: 99024

== ENCOUNTER → 2024-04-01 14:08 | Outpatient (BNVA) | payer OTHER, SELFPAY | PROVIDERS: PCP Internal Medicine; Visit Provider Orthopaedic Surgery | DX: M79.7 Fibromyalgia (principal); S62.302D Unspecified fracture of third metacarpal bone, right hand, subsequent encounter for fracture with routine healing; X58.XXXD Exposure to other specified factors, subsequent encounter; Z48.811 Encounter for surgical aftercare following surgery on the nervous system; Z98.890 Other specified postprocedural states | CPT/HCPCS: 99212 ==

== ENCOUNTER 2024-04-28 12:34 | Outpatient (AMB) | payer OTHER, SELFPAY ==
--- NOTE | 2024-04-28 12:45 | MHC.OFFVIS ---
Intake Visit Reasons: OV - B/L knee OA, last inj 01/30/24 Intake Note: Nancie is a 53 year old female who presents today for a follow up of her bilateral knee OA , she last received injections in both of her knees on 01/30/2024. Patient reports that she has about 3 months of relief with last set of injections and that the last few weeks her pain has dramatically worsened. She would like to repeat injections in both of the knees. Allergies ibuprofen [From MOTRIN] Allergy (Unknown, Verified 04/28/24 13:05) UPSET STOMACH, stomach upset, stomach upset tramadol [TRAMADOL] Allergy (Unknown, Verified 04/28/24 13:05) UPSET STOMACH, nausea and vomiting Pt states no food allergies Allergy (Unknown, Uncoded 04/28/24 13:05) unknown HPI HPI OV - B/L knee OA, last inj 01/30/24: Details: 53-year-old right hand dominant female who presents in the office today for a follow-up of bilateral knee osteoarthritis. I last saw the patient in the office on 01/30/24 when she was given a cortisone injection in the bilateral knees. While in the office today, the patient reports her last cortisone injection gave her about 3 months of relief. She reports her pain has dramatically increased in the last few weeks. She is interested in repeating the injections today. The patient has a medical history of fibromyalgia. [facility] Medical History (Updated 03/19/24 @ 09:22 by Susana Velasco RN) Panic attacks Seizure Sleep apnea Panic attack Carpal tunnel syndrome Osteoarthritis Fibromyalgia HTN (hypertension) Surgical History (Updated 03/19/24 @ 09:20 by Susana Velasco RN) History of surgery History of bilateral carpal tunnel release Hx of section Hx of cholecystectomy Hx of tubal ligation Family History Mother HTN (hypertension) Sister Ovarian cancer Maternal Aunt Breast cancer Social History Household Members: Children Housing: Condominium Alcohol intake: current Alcohol intake frequency: holidays/special occasions only Comment: counts correct Patient Tobacco Use Status: Former Tobacco user Advance Directives Date on File: 05/12/20 service: No Current occupational status: disabled Current occupation: rt hand Sexual orientation: Straight/Heterosexual Gender identity: Female Review of Systems Const All systems reviewed & are unremarkable except as noted in HPI and below Physical Exam Const General: cooperative, healthy appearing and no acute distress Resp Effort & Inspection: normal respiratory effort and able to speak in complete sentences Cardio Rate: regular rate Peripheral pulses: Peripheral pulses 2+ throughout GI Palpation (GI): Soft to palpation Skin Lesions: no lesions Rashes: no rashes Extrem Other: Bilateral knees: Normal to inspection. No ecchymosis, erythema, or joint effusion. Full ROM bilaterally. No tenderness at the medial and lateral joint lines. Negative Radha's. NVI. Office Procedures Joint Injection/Aspiration Joint Injection/Aspiration Primary Site: right knee Secondary Site: left knee Prep: site was prepped using aseptic technique, ethochloride spray was applied and injection warnings given Injected: 80 mg of, DepoMedrol, with 8 mL of (2% plain lido ) and in the joint Approach Used: anterolateral Procedure: The patient tolerated the procedure well, but had some pain with the injection and there was some relief with the local anesthesia Coding 31145 - Large joint Procedure code (CPT) selection complete Assessment & Plan Assessment & Plan (1) Bilateral primary osteoarthritis of knee: Code(s): M17.0 - Bilateral primary osteoarthritis of knee Category: Medical Plan is a 53-year-old right hand dominant female who presents in the office today for a follow-up of bilateral knee osteoarthritis. I last saw the patient in the office on 01/30/24 when she was given a cortisone injection in the bilateral knees. While in the office today, the patient reports her last cortisone injection gave her about 3 months of relief. She reports her pain has dramatically increased in the last few weeks. She is interested in repeating the injections today. The patient has a medical history of fibromyalgia. The patient was offered a cortisone injection in the bilateral knees with 80mg of Depo-Medrol. The patient was explained the risks, benefits, and alternatives to receiving this injection. After receiving consent for the injection, the patient had the procedure done while in the office today. The patient tolerated the procedure well with no complication. Follow up will be in 3 months for repeat injection, or sooner if needed. Patient Instructions: Scribed by Mariella Patino medical equipment repair technician, for Virginia Stout PA-C on 04/28/24 at 01:21 pm EST. Coding Level of Care Code Est Pt Level 3 (00467) Diagnoses Bilateral primary osteoarthritis of knee M17.0 CPT Codes Coding - 52099 Large joint: 32060 - Large joint ([id number])
== END 2024-04-28 13:22 | disposition home or self-care (01) ==
PROVIDERS: PCP Internal Medicine; Visit Provider Physician Assistant
DX: M17.0 Bilateral primary osteoarthritis of knee (principal)
CPT/HCPCS: 20610; 99213

== ENCOUNTER → 2024-04-28 12:34 | Outpatient (BNVA) | payer OTHER, SELFPAY | PROVIDERS: PCP Internal Medicine; Visit Provider Physician Assistant | DX: M17.0 Bilateral primary osteoarthritis of knee (principal) | CPT/HCPCS: 20610; 99212; J1010 ==

== ENCOUNTER 2024-05-15 13:23 | Outpatient (REF) | payer OTHER, SELFPAY ==
--- NOTE | ~2024-05-15 | MM_ITS ---
EXAMINATION: MM SCREENING DIGITAL BREAST TOMOSYNTHESIS, BILATERAL CLINICAL INFORMATION: Screening. Asymptomatic. COMPARISON: Mammography: Comparison is made with available priors TECHNIQUE: Digital breast mammography with tomosynthesis is performed in both the craniocaudal and mediolateral oblique views along with computer-aided detection (CAD). FINDINGS: There are scattered areas of fibroglandular density (ACR BI-RADS breast composition Category b). There are no significant masses, abnormal calcifications, or other abnormalities. MM/MM tomosynthesis screening BI IMPRESSION: No mammographic evidence of malignancy. ASSESSMENT: BI-RADS BI-RADS 1 - Negative RECOMMENDATION: Routine annual mammography screening. 1 year F/U This examination should not preclude the clinical evaluation of a suspicious palpable abnormality. This patient's information was entered into a reminder system with a target due date for their next mammogram. Electronically signed by: Marilyn Baugh DO 05/27/2024 01:18 PM EDT
== END 2024-05-15 13:24 | disposition home or self-care (01) ==
LOC: HO.MAMMO 13:23
PROVIDERS: PCP Internal Medicine; Visit Provider Internal Medicine
DX: Z12.31 Encounter for screening mammogram for malignant neoplasm of breast (principal)
CPT/HCPCS: 77063; 77067

== ENCOUNTER → 2024-05-15 13:30 | Outpatient (BNV) | payer OTHER, SELFPAY | PROVIDERS: PCP Internal Medicine; Visit Provider Internal Medicine | DX: Z12.31 Encounter for screening mammogram for malignant neoplasm of breast (principal) | CPT/HCPCS: 77063; 77067 ==

== ENCOUNTER 2024-07-07 10:14 | Outpatient (REF) | payer OTHER, SELFPAY | END 2024-07-07 10:15 | disposition home or self-care (01) | LOC: HO.HOSX 10:14 | PROVIDERS: Visit Provider Orthopaedic Surgery | DX: Z13.89 Encounter for screening for other disorder (principal) ==

== ENCOUNTER 2024-07-30 13:10 | Outpatient (AMB) | payer OTHER, SELFPAY ==
--- NOTE | 2024-07-30 13:44 | A.OFFVIS_ITS ---
Vital Signs 07/30/24 13:45 Height 5 ft 5 in Weight 267 lb BMI 44.4 Intake Visit Reasons: OV - B/L knee OA, last inj 04/28/24 Intake Note: Nancie is a 53 year old female who presents today for a follow up of her bilateral knee OA , last injections 04/28/24. Patient reports she fell about 3 days ago and is having increase of pain. She did not land on her knees but felt the impact. Requesting to have bilateral knees injected. Allergies ibuprofen [From MOTRIN] Allergy (Unknown, Verified 07/30/24 13:46) UPSET STOMACH, stomach upset, stomach upset tramadol [TRAMADOL] Allergy (Unknown, Verified 07/30/24 13:46) UPSET STOMACH, nausea and vomiting Pt states no food allergies Allergy (Unknown, Uncoded 07/30/24 13:46) unknown HPI HPI OV - B/L knee OA, last inj 04/28/24: Details: 53-year-old [id number]-qzfdmecl female who presents in the office today for a follow-up of bilateral knee osteoarthritis. I last saw the patient in the office on 04/28/24, when she was given a cortisone injection in the bilateral knees. While in the office today, the patient reports increased bilateral knee pain secondary to the fall, which occurred 3 days ago. She denies landing on her knees but she felt the impact. She requests and would like to have cortisone injection in the bilateral knees. The patient has a medical history of fibromyalgia. [facility] Medical History (Updated 03/19/24 @ 09:22 by Susana Velasco RN) Panic attacks Seizure Sleep apnea Panic attack Carpal tunnel syndrome Osteoarthritis Fibromyalgia HTN (hypertension) Surgical History History of surgery History of bilateral carpal tunnel release Hx of section Hx of cholecystectomy Hx of tubal ligation Family History Mother HTN (hypertension) Sister Ovarian cancer Maternal Aunt Breast cancer Social History Household Members: Children Housing: Condominium Alcohol intake: current Alcohol intake frequency: holidays/special occasions only Comment: counts correct Patient Tobacco Use Status: Former Tobacco user Advance Directives Date on File: 05/12/20 service: No Current occupational status: disabled Current occupation: rt hand Sexual orientation: Straight/Heterosexual Gender identity: Female Review of Systems Const All systems reviewed & are unremarkable except as noted in HPI and below Physical Exam Vital Signs: BMI result Body Mass Index 44.4 Const General: cooperative, healthy appearing and no acute distress Resp Effort & Inspection: normal respiratory effort and able to speak in complete sentences Cardio Rate: regular rate Peripheral pulses: Peripheral pulses 2+ throughout GI Palpation (GI): Soft to palpation Skin Lesions: no lesions Rashes: no rashes Extrem Other: Bilateral knees: Normal to inspection. No ecchymosis, erythema, or joint effusion. Full ROM bilaterally. No tenderness at the medial and lateral joint lines. Negative Radha's. NVI. Office Procedures AMB Joint Injection/Aspiration Joint Injection/Aspiration Primary Site: right knee Secondary Site: left knee Prep: site was prepped using aseptic technique, ethochloride spray was applied and injection warnings given Injected: 80 mg of, DepoMedrol, with 8 mL of (2% plain lido ) and in the joint Approach Used: anterolateral Procedure: The patient tolerated the procedure well, but had some pain with the injection and there was some relief with the local anesthesia Coding 27374 - Large joint Procedure code (CPT) selection complete Assessment & Plan Assessment & Plan (1) Bilateral primary osteoarthritis of knee: Code(s): M17.0 - Bilateral primary osteoarthritis of knee Category: Medical Plan Ms. Cuevas is a 53-year-old surzu-ptpz-whxsyjbe female who presents in the office today for a follow-up of bilateral knee osteoarthritis. I last saw the patient in the office on 04/28/24, when she was given a cortisone injection in the bilateral knees. While in the office today, the patient reports increased bilateral knee pain secondary to the fall, which occurred 3 days ago. She denies landing on her knees but she felt the impact. She requests and would like to have cortisone injection in the bilateral knees. The patient has a medical history of fibromyalgia. The patient was offered a cortisone injection in the bilateral knees with 80mg of Depo-Medrol. The patient was explained the risks, benefits, and alternatives to receiving this injection. After receiving consent for the injection, the patient had the procedure done while in the office today. The patient tolerated the procedure well with no complication. Follow-up will be PRN, or sooner if needed. Patient Instructions: Scribed by Mariella Patino medical billing and coding specialist, for Virginia Stout PA-C on 07/30/24 at 01:57 pm EST. Coding Level of Care Code Est Pt Level 3 (29662) Diagnoses Bilateral primary osteoarthritis of knee M17.0 CPT Codes Coding - 17537 Large joint: 54113 - Large joint ([id number])
[2024-07-30 13:45] VITALS: BMI 44.4
== END 2024-07-30 13:59 | disposition home or self-care (01) ==
PROVIDERS: PCP Internal Medicine; Visit Provider Physician Assistant
DX: M17.0 Bilateral primary osteoarthritis of knee (principal)
CPT/HCPCS: 20610; 99213

== ENCOUNTER → 2024-07-30 13:10 | Outpatient (BNVA) | payer OTHER, SELFPAY | PROVIDERS: PCP Internal Medicine; Visit Provider Physician Assistant | DX: Z91.81 History of falling (principal) | CPT/HCPCS: 20610; 99212; J1010; J2003 ==

== ENCOUNTER 2024-09-03 17:32 | Emergency (ER) | payer OTHER, SELFPAY ==
[2024-09-03 17:48] VITALS: BP 169/99; BP 188/121; PULSE 81; PULSE 82; RESP 18; TEMP 36.9; O2SAT 100; O2SAT 98; BMI 46.2
[2024-09-03 18:58] VITALS: BP 153/87; PULSE 79; RESP 22; O2SAT 100
--- NOTE | 2024-09-03 20:19 | ECG_ITS ---
Test Reason : DIZZINESS Blood Pressure : */* mmHG Vent. Rate : 73 BPM Atrial Rate : 73 BPM P-R Int : 160 ms QRS Dur : 68 ms QT Int : 410 ms P-R-T Axes : 66 21 82 degrees QTcB Int : 451 ms Normal sinus rhythm Possible Left atrial enlargement Borderline ECG When compared with ECG of 17-Jul-2023 14:15, No significant change was found Referred By: Helena Parra Electronically Signed By: KARLO HEARN
[2024-09-03] MEDS: Acetaminophen 325 MG TABLET 975 MG PO (20:47)
[2024-09-03 21:12] LABS: MANUAL DIFF FLAG NO
[2024-09-03 21:13] LABS: Basophils Absolute Auto 0.1 X10*3/uL (0.0-0.2); Basophils Percent Auto 0.8 % (0-2); Eosinophils Absolute Auto 0.1 X10*3/uL (0.0-0.4); Hematocrit 43.8 % (37.0-47.0); Hemoglobin 15.2 g/dl (12.0-16.0); Imm Gran Abs Auto 0.05 X10*3/uL (0.00-0.03); Imm Gran Pct Auto 0.5 % (0.0-0.4); Lymphocytes Absolute Auto 3.4 X10*3/uL (1.2-4.9); Lymphocytes Percent Auto 32.2 % (20-40); Mean Corpuscular HGB Conc 34.7 g/dl (31.0-35.0); Mean Corpuscular Hemoglobin 30.4 pg (27.0-33.0); Mean Corpuscular Volume 87.6 fL (80.0-98.0); Mean Platelet Volume 9.8 fL (9.4-12.3); Monocytes Absolute Auto 0.6 X10*3/uL (0.1-1.2); Monocytes Percent Auto 5.6 % (2-11); Neutrophils Absolute Auto 6.3 x10*3/uL (2.0-8.3); Neutrophils Percent Auto 59.9 % (45-73); Platelet Count 252 X10*3/uL (160-400); Red Cell Distribution Width 12.9 % (11.0-16.0); White Blood Count 10.5 X10*3/uL (4.8-10.8)
[2024-09-03 21:27] LABS: Alanine Aminotransferase 20 U/L (0-31); Albumin Level 4.2 g/dL (3.5-5.0); Alkaline Phosphatase 82 U/L (39-117); Anion Gap 16 (12-20); Aspartate Amino Transferase 23 U/L (5-31); Bilirubin Direct 0.2 mg/dL (0.0-0.5); Bilirubin Total 0.6 mg/dL (0.0-1.0); Blood Urea Nitrogen 17 mg/dL (9-16); Calcium 9.8 mg/dL (8.4-10.2); Carbon Dioxide 21 mmol/L (22-29); Chloride 109 mmol/L (96-108); Creatinine Clr Calc Pharmacy 111.7; Estimated Glomerular Filt Rate > 60; Glucose Random 96 mg/dL (60-115); Lipase 21 U/L (8-78); Magnesium 2.2 mg/dL (1.6-2.6); Sodium 142 mmol/L (135-145); Total Protein 8.3 g/dL (6.5-8.0)
[2024-09-03 21:35] LABS: Troponin-I High Sensitivity < 2.7 ng/L (<3.5-17.0)
--- NOTE | 2024-09-03 22:15 | ED.GENADULT ---
HPI - General Adult General Chief complaint: General Medical Stated complaint: head ache Time Seen by Provider: 09/03/24 22:14 Source: patient Limitations: no limitations History of Present Illness ED Provider: Aylin Benton PA-C HPI narrative: 53-year-old morbidly obese female with a history of fibromyalgia, osteoarthritis, presents with acute left-sided low back pain. Patient states she developed acute onset pain that radiated down the left lower extremity, the pain was so severe her leg gave out and she fell. Patient denies weakness of lower extremity, bowel incontinence or urinary retention. Patient states she is having tingling in the leg. Denies new activity, heavy lifting, that could have precipitated her symptoms. Related Data Home Medications ?Medication ?Instructions ?Recorded ?Confirmed lisinopril 20 mg tablet 20 mg PO BID 03/03/21 07/04/23 gabapentin 300 mg capsule 300 mg PO TID 07/12/22 07/04/23 hydralazine 25 mg tablet 25 mg PO BID 08/14/23 Previous Rx's ?Medication ?Instructions ?Recorded diphenhydramine HCl 25 mg capsule 25 mg PO Q4H PRN itching #20 caps 10/30/22 (Benadryl) hydrocortisone 1 % topical cream 1 appl topical TID 5 days #28.35 10/30/22 (Anti-Itch (hydrocortisone)) grams prednisone 20 mg tablet 40 mg (2 x 20 mg) PO DAILY #10 tabs 10/30/22 acetaminophen 500 mg tablet 500 mg PO Q6H PRN fever or pain 07/17/23 #20 tabs oxycodone-acetaminophen 5 mg-325 1 tab PO Q6H PRN pain, severe #5 03/19/24 mg tablet tabs methocarbamol 750 mg tablet 1,500 mg (2 x 750 mg) PO Q8H PRN 09/03/24 pain, moderate #24 tabs methylprednisolone 4 mg tablets in 4 mg PO QAM #1 ea 09/03/24 a dose pack (Medrol (Pedrito)) Allergies Allergy/AdvReac Type Severity Reaction Status Date / Time ibuprofen [From MOTRIN] Allergy Unknown UPSET Verified 09/03/24 17:55 STOMACH, stomach upset, stomach upset tramadol [TRAMADOL] Allergy Unknown UPSET Verified 07/30/24 13:46 STOMACH, nausea and vomiting Pt states no food allergies Allergy Unknown unknown Uncoded 07/30/24 13:46 Review of Systems Review of Systems: Yes all other systems are reviewed and are negative Constitutional: Constitutional: Denies fatigue and Denies fever(s) Cardiovascular: Cardiovascular: Denies chest pain and Denies dyspnea Respiratory: Respiratory: Denies cough and Denies dyspnea Gastrointestinal: Gastrointestinal: Denies abdominal pain, Denies nausea and Denies vomiting Genitourinary: Genitourinary: Denies dysuria and Denies urinary hesitancy Musculoskeletal: Musculoskeletal: Reports back pain, Denies muscle weakness, Denies numbness, Reports radiating pain into limb and Reports tingling Neurologic: Denies numbness and Reports tingling Endocrine: Endocrine: Denies fatigue PMFSH Past Medical History Attestation statement: The following information was validated with the patient. Medical History (Updated 09/03/24 @ 23:39 by SHABNAM Lopez) Panic attacks Seizure Sleep apnea Panic attack Carpal tunnel syndrome Osteoarthritis Fibromyalgia HTN (hypertension) Surgical History History of surgery History of bilateral carpal tunnel release Hx of section Hx of cholecystectomy Hx of tubal ligation Family History Family History Mother HTN (hypertension) Sister Ovarian cancer Maternal Aunt Breast cancer Social History Social History Household Members: Children [facility] Alcohol intake: current Alcohol intake frequency: holidays/special occasions only Comment: counts correct Patient Tobacco Use Status: Former Tobacco user Smoked in Last 30 Days: No Use of substances other than those prescribed or required for medical reasons: No Advance Directives: No Advance Directives Information Provided: No Advance Directives Date on File: 05/12/20 service: No Current occupational status: disabled Current occupation: rt hand Sexual orientation: Straight/Heterosexual Gender identity: Female Physical Exam ED Vital Signs: Vital Signs - 24 hr 09/03/24 17:48 09/03/24 18:58 09/03/24 23:05 Temperature 98.5 F 97.9 F Pulse Rate 81 79 82 Respiratory Rate 18 22 H 14 Blood Pressure 169/99 H 153/87 H 139/92 H Pulse Oximetry 100 100 99 Oxygen Delivery Method Room Air Room Air Room Air BMI result Body Mass Index 46.2 Const Other: Alert, no sign of head trauma on exam Orientation/consciousness: patient oriented x3 Neck Other: Full range of motion Resp Effort & Inspection: normal respiratory effort Cardio Other: Normal peripheral perfusion Skin Other: Warm dry no rash Neuro Other: Antalgic gait General: patient oriented x3, no focal motor deficits and CN's II-XI intact bilaterally Extrem Other: Strength 5/5 bilateral lower extremities Psych Other: Calm cooperative Medications Administered Discontinued Medications Generic Name Dose Route Start Last Admin Trade Name Keith PRN Reason Stop Dose Admin Acetaminophen 975 mg 09/03/24 20:43 09/03/24 20:47 Acetaminophen 325 Mg Tablet PO 09/03/24 20:44 975 mg ONCE ONE Administration Medical Decision Making Medical Decision Making [facility] Narrative: 53-year-old morbidly obese female with a history of fibromyalgia, osteoarthritis, presents with acute left-sided low back pain. Patient states she developed acute onset pain that radiated down the left lower extremity, the pain was so severe her leg gave out and she fell. Patient denies weakness of lower extremity, bowel incontinence or urinary retention. Patient states she is having tingling in the leg. Denies new activity, heavy lifting, that could have precipitated her symptoms. Problem: Obesity , fibromyalgia, arthritis History: Per patient I have considered the following differential diagnoses: Low back strain, radiculopathy, cauda equina Plan: Screening labs were obtained from triage, the patient is here with lumbar radiculopathy without red flag signs symptoms concerning for cord compression. We will treat with a Medrol Dosepak and muscle relaxant. I have independently reviewed the following tests: Labs: No leukocytosis, not anemic, no electrolyte abnormality noted Lab Data 09/03/24 21:09 09/03/24 21:09 Labs: Lab Results 09/03/24 Range/Units 21:09 WBC 10.5 (4.8-10.8) X10*3/uL RBC 5.00 (4.20-5.50) X10*6/uL Hgb 15.2 (12.0-16.0) g/dl Hct 43.8 (37.0-47.0) % MCV 87.6 (80.0-98.0) fL MCH 30.4 (27.0-33.0) pg MCHC 34.7 (31.0-35.0) g/dl RDW 12.9 (11.0-16.0) % Plt Count 252 (160-400) X10*3/uL MPV 9.8 (9.4-12.3) fL Immature Gran % (Auto) 0.5 H (0.0-0.4) % Neut % (Auto) 59.9 (45-73) % Lymph % (Auto) 32.2 (20-40) % [place] % (Auto) 5.6 (2-11) % Eos % (Auto) 1.0 (0-4) % Baso % (Auto) 0.8 (0-2) % Lymph # (Auto) 3.4 (1.2-4.9) X10*3/uL [place] # (Auto) 0.6 (0.1-1.2) X10*3/uL Eos # (Auto) 0.1 (0.0-0.4) X10*3/uL Baso # (Auto) 0.1 (0.0-0.2) X10*3/uL Abs Immat Gran (auto) 0.05 H (0.00-0.03) X10*3/uL Absolute Neuts (auto) 6.3 (2.0-8.3) x10*3/uL Absolute Nucleated RBC 0.000 (0.0-0.012) X10*3/uL Nucleated RBC % (auto) 0.0 (0.0-0.2) /100WBC Sodium 142 (135-145) mmol/L Potassium 4.0 (3.3-5.1) mmol/L Chloride 109 H (96-108) mmol/L Carbon Dioxide 21 L (22-29) mmol/L Anion Gap 16 (12-20) BUN 17 H (9-16) mg/dL Creatinine 0.76 (0.5-1.4) mg/dL Estim Creat Clear Calc 111.7 Estimated GFR > 60 Random Glucose 96 (60-115) mg/dL Calcium 9.8 (8.4-10.2) mg/dL Magnesium 2.2 (1.6-2.6) mg/dL Total Bilirubin 0.6 (0.0-1.0) mg/dL Direct Bilirubin 0.2 (0.0-0.5) mg/dL AST 23 (5-31) U/L ALT 20 (0-31) U/L Alkaline Phosphatase 82 (39-117) U/L Troponin I High Sens < 2.7 (<3.5-17.0) ng/L Total Protein 8.3 H (6.5-8.0) g/dL Albumin 4.2 (3.5-5.0) g/dL Lipase 21 (8-78) U/L Discharge Plan Discharge Clinical Impression: Left lumbar radiculopathy Patient Disposition: Home, Self-Care Instructions: Lumbar Radiculopathy (ED) Additional Instructions: You are being treated for lumbar radiculopathy. See home care instructions. Use the Medrol Dosepak as directed, this is a steroid taper, take the medication in the morning. This is used as an anti-inflammatory. Use the methocarbamol, this is a muscle relaxant, as needed for pain, to note this medication will cause drowsiness, do not drive or operate machinery while taking the medication. Follow up with your primary care provider as needed. Prescriptions: New methylprednisolone [Medrol (Pedrito)] 4 mg tablets,dose pack 4 mg PO QAM Qty: 1 0RF methocarbamol 750 mg tablet 1,500 mg PO Q8H PRN (Reason: pain, moderate) Qty: 24 0RF No Action oxycodone-acetaminophen 5-325 mg tablet 1 tab PO Q6H PRN (Reason: pain, severe) Qty: 5 0RF Rx Instructions: Partial Fill upon patient request. prednisone 20 mg tablet 40 mg PO DAILY Qty: 10 0RF diphenhydramine HCl [Benadryl] 25 mg capsule 25 mg PO Q4H PRN (Reason: itching) Qty: 20 0RF hydrocortisone [Anti-Itch (HC)] 1 % cream 1 appl topical TID 5 Days Qty: 28.35 0RF acetaminophen 500 mg tablet 500 mg PO Q6H PRN (Reason: fever or pain) Qty: 20 0RF lisinopril 20 mg tablet 20 mg PO BID gabapentin 300 mg capsule 300 mg PO TID hydralazine 25 mg tablet 25 mg PO BID Print Language: German
[2024-09-03 23:05] VITALS: BP 139/92; PULSE 82; RESP 14; TEMP 36.6; O2SAT 99
[2024-09-03] MEDS: methocarbamoL 750 MG TABLET 1500 MG PO (23:40)
[2024-09-03] MEDS: Ketorolac Tromethamine 15 MG/ML VIAL IM (23:42)
[2024-09-04 00:13] VITALS: BP 143/86; PULSE 92; RESP 17; TEMP 36.7; O2SAT 98
[2024-09-04 00:24] LABS: Influenza A PCR NEGATIVE (Negative); Influenza B PCR NEGATIVE (Negative); Resp Syncy Virus RNA Qual PCR NEGATIVE (Negative); SARS COV2 PCR INHOUSE NEGATIVE (Negative)
[2024-09-04 00:31] VITALS: BP 143/86; PULSE 92; RESP 17; TEMP 36.7; O2SAT 98
== END 2024-09-04 00:33 | disposition home or self-care (01) ==
PROVIDERS: Physician Assistant Medical; Emergency Provider Emergency Medicine; PCP Internal Medicine
DX: M54.16 Radiculopathy, lumbar region (principal); M54.42 Lumbago with sciatica, left side; Z87.891 Personal history of nicotine dependence; Z03.818 Encounter for observation for suspected exposure to other biological agents ruled out
CPT/HCPCS: 0241U; 36415; 80048; 80076; 83690; 83735; 84484; 85025; 93005; 96372; 99284; J1885

== ENCOUNTER → 2024-09-03 20:19 | Outpatient (BNV) | payer OTHER, SELFPAY | PROVIDERS: Emergency Provider Emergency Medicine; PCP Internal Medicine; Visit Provider Internal Medicine | DX: R42 Dizziness and giddiness (principal) | CPT/HCPCS: 93010 ==

== ENCOUNTER 2024-10-29 13:12 | Outpatient (AMB) | payer OTHER, SELFPAY ==
--- NOTE | 2024-10-29 13:18 | MHC.OFFVIS ---
Intake Visit Reasons: Inj-B/L knee OA, last inj 07/30/24 Intake Note: Nancie is a 53 year old female who presents today for repeat bilateral knee injections. At her last visit on 07/30/25 bilateral knees were injected with 80mg of Depo. Patient reports that her injection lasted about 2 months and 3 weeks. She would like to repeat injections today. She states that she was recently seen at multiple ER with the last one being [facility]. States that she was having burning pain that radiated from her lower back to her left knee. She also has a numbness sensation at the lateral aspect of leg. Allergies ibuprofen [From MOTRIN] Allergy (Unknown, Verified 09/03/24 17:55) UPSET STOMACH, stomach upset, stomach upset tramadol [TRAMADOL] Allergy (Unknown, Verified 07/30/24 13:46) UPSET STOMACH, nausea and vomiting Pt states no food allergies Allergy (Unknown, Uncoded 07/30/24 13:46) unknown HPI HPI Inj-B/L knee OA, last inj 07/30/24: Details: Ms. Cuevas is a 53-year-old female who presents the office today for repeat cortisone injections in bilateral knees. Last cortisone injection was 07/30/2024. [facility] Medical History (Updated 09/05/24 @ 00:02 by Matthew Walton) Panic attacks Seizure Sleep apnea Panic attack Carpal tunnel syndrome Osteoarthritis Fibromyalgia HTN (hypertension) Surgical History History of surgery History of bilateral carpal tunnel release Hx of section Hx of cholecystectomy Hx of tubal ligation Family History Mother HTN (hypertension) Sister Ovarian cancer Maternal Aunt Breast cancer Social History Household Members: Children Housing: Condominium Alcohol intake: current Alcohol intake frequency: holidays/special occasions only Comment: counts correct Patient Tobacco Use Status: Former Tobacco user Advance Directives Date on File: 05/12/20 service: No Current occupational status: disabled Current occupation: rt hand Sexual orientation: Straight/Heterosexual Gender identity: Female Review of Systems Const All systems reviewed & are unremarkable except as noted in HPI and below Physical Exam Const General: cooperative, healthy appearing and no acute distress Resp Effort & Inspection: normal respiratory effort and able to speak in complete sentences Cardio Rate: regular rate Peripheral pulses: Peripheral pulses 2+ throughout Skin Lesions: no lesions Rashes: no rashes Extrem Other: Bilateral knees: Normal to inspection. No ecchymosis, erythema, or joint effusion. Full ROM bilaterally. No tenderness at the medial and lateral joint lines. Negative Radha's. NVI. Office Procedures AMB Joint Injection/Aspiration Joint Injection/Aspiration Primary Site: right knee Secondary Site: left knee Prep: site was prepped using aseptic technique, ethochloride spray was applied and injection warnings given Injected: 80 mg of, DepoMedrol, with 8 mL of (2% plain lido) and in the joint Procedure: The patient tolerated the procedure well, but had some pain with the injection and there was some relief with the local anesthesia Coding 36794 - Bilateral Large Joint Procedure code (CPT) selection complete Assessment & Plan Assessment & Plan (1) Bilateral primary osteoarthritis of knee: Code(s): M17.0 - Bilateral primary osteoarthritis of knee Category: Medical Plan Ms. Cuevas is a 53-year-old female who presents the office today for repeat cortisone injections in bilateral knees. Last cortisone injection was 07/30/2024. The patient was offered a cortisone injection in bilateral knees with 80 mg of DepoMedrol. The patient was explained the risks, benefits, and alternatives to receiving this injection. After receiving consent for the injection, the patient had the procedure done while in the office today. The patient tolerated the procedure well with no complications. Follow-up will be p.r.n., or sooner if needed Coding Level of Care Code Est Pt Level 3 (81383) Diagnoses Bilateral primary osteoarthritis of knee M17.0 CPT Codes Coding - 18872 - Bilateral Large Joint: 80994 - Bilateral Large Joint ([id number])
== END 2024-10-29 13:42 | disposition home or self-care (01) ==
LOC: HO.HOS 13:12
PROVIDERS: PCP Internal Medicine; Visit Provider Physician Assistant
DX: M17.0 Bilateral primary osteoarthritis of knee (principal)
CPT/HCPCS: 20610; 99213

== ENCOUNTER → 2024-10-29 13:12 | Outpatient (BNVA) | payer OTHER, SELFPAY | PROVIDERS: PCP Internal Medicine; Visit Provider Physician Assistant | DX: M17.0 Bilateral primary osteoarthritis of knee (principal) | CPT/HCPCS: 20610; 99212; J1010; J2003 ==

== ENCOUNTER 2024-11-13 17:39 | Emergency (ER) | payer OTHER, SELFPAY ==
--- NOTE | ~2024-11-13 | XR_ITS ---
CLINICAL HISTORY: post reduction 3 view right 5th digit Comparison: CR - XR HAND RT 2V - 11/13/24 18:05 EDT Findings: Successful reduction of the 5th PIP. No acute fracture. IMPRESSION: 1. No acute osseous injury following reduction of the right 5th PIP joint. This document has been electronically signed by: Cesario Kingsley MD on 11/13/2024 22:59:12
--- NOTE | ~2024-11-13 | XR_ITS ---
CLINICAL HISTORY: 5th digit pain after injury 4 view right hand Comparison: None Findings: Anterior dislocation of the 5th PIP. No acute fracture. No erosions. No radiopaque foreign body. IMPRESSION: Anterior dislocation of the 5th PIP joint. This document has been electronically signed by: Cesario Kingsley MD on 11/13/2024 18:38:42
[2024-11-13 17:52] VITALS: BP 154/84; PULSE 89; RESP 18; TEMP 37; O2SAT 98; BMI 45.7
--- NOTE | 2024-11-13 17:56 | ED.EXTPRO ---
HPI - Extremity Problem General Chief complaint: Extremity Problem Stated complaint: had wrist surgry/mid and ring finger no strength Time Seen by Provider: 11/13/24 20:54 History of Present Illness ED Provider: Glen BLACK Narrative: The patient is a 53-year-old woman who says that she had a spasm in the fingers of her right hand while she was going down some stairs and carrying a baby in her left arm. She struck her right hand against the wall on her side and sustained an injury to the right pinky finger so that the finger was bent and she could not extend it. Related Data Home Medications ?Medication ?Instructions ?Recorded ?Confirmed gabapentin 300 mg capsule 300 mg PO TID 07/12/22 07/04/23 hydralazine 25 mg tablet 25 mg PO BID 08/14/23 Previous Rx's ?Medication ?Instructions ?Recorded diphenhydramine HCl 25 mg capsule 25 mg PO Q4H PRN itching #20 caps 10/30/22 (Benadryl) hydrocortisone 1 % topical cream 1 appl topical TID 5 days #28.35 10/30/22 (Anti-Itch (hydrocortisone)) grams acetaminophen 500 mg tablet 500 mg PO Q6H PRN fever or pain 07/17/23 #20 tabs Allergies Allergy/AdvReac Type Severity Reaction Status Date / Time ibuprofen [From MOTRIN] Allergy Unknown UPSET Verified 11/13/24 17:56 STOMACH, stomach upset, stomach upset tramadol [TRAMADOL] Allergy Unknown UPSET Verified 11/13/24 17:56 STOMACH, nausea and vomiting Pt states no food allergies Allergy Unknown unknown Uncoded 11/13/24 17:56 Review of Systems Review of Systems: Yes all other systems are reviewed and are negative [facility] Past Medical History Medical History (Updated 11/14/24 @ 00:00 by Matthew Walton) Panic attacks Seizure Sleep apnea Panic attack Carpal tunnel syndrome Osteoarthritis Fibromyalgia HTN (hypertension) Surgical History History of surgery History of bilateral carpal tunnel release Hx of section Hx of cholecystectomy Hx of tubal ligation Family History Family History Mother HTN (hypertension) Sister Ovarian cancer Maternal Aunt Breast cancer Social History Social History (Reviewed 07/30/24 @ 13:46 by TOM Salamanca Household Members: Children Housing: Condominium Alcohol intake: current Alcohol intake frequency: holidays/special occasions only Comment: counts correct Patient Tobacco Use Status: Former Tobacco user Advance Directives: No Advance Directives Information Provided: No Advance Directives Date on File: 05/12/20 service: No Current occupational status: disabled Current occupation: rt hand Sexual orientation: Straight/Heterosexual Gender identity: Female Physical Exam Vital Signs: Vital Signs: Last Vital Signs Temp 97.3 F 11/13/24 22:12 Pulse 86 11/13/24 22:12 Resp 16 11/13/24 22:12 BP 185/98 H 11/13/24 22:12 Pulse Ox 98 11/13/24 22:12 O2 Del Method Room Air 11/13/24 22:12 BMI result Body Mass Index 45.7 Const: Other: The patient is awake and alert. She is pleasant cooperative. She has an obvious deformity to the right little finger. HEENT: Other: Face is symmetrical, mucous membranes moist. Eyes: General: appearance normal, both eyes and all related structures Neck: Neck: Yes normal visual inspection and Yes full ROM Resp: Effort & Inspection: normal respiratory effort Skin: Other: The skin is intact. No significant soft tissue swelling. Neuro: Other: The patient is awake and alert with normal mental status. Patient has intact sensation at the distal right small finger. Extrem: Other: The patient has a deformity to the right little finger at the PIP joint. The joint appears flexed and she is unable to straighten it. It is tender. The skin is intact. There is good perfusion to the distal finger. Course Course Course Narrative: This is an RME performed by Bryan Mclean CNP: Additional HPI, ROS, PE not included below will be deferred to primary provider. Patient is a 53-year-old female who presents to the emergency department for evaluation. She underwent surgery on the right wrist for carpal tunnel syndrome in March of 2024, states she did not have any follow-up. She has had ongoing issues with weakness to the right 3rd through 5th digit, reported inability to flex fully extend the 5th digit. Today she sustained an injury striking her hand into a metal grate audible crack in the hand. Plan: XR Medical Decision Making Medical Decision Making MDM Narrative: The patient presents following an injury to the right little finger. She has a deformity with flexion of the finger at the PIP joint. She is unable to straighten the finger. An x-ray shows a dislocation of the PIP joint without fracture. I explained to the patient that she had sustained a dislocation of the joint. I explained that manipulation of the finger with probably easily correct the deformity and the dislocation. I explained that and attempted reduction would probably be less painful than administration of any anesthesia. the patient understood this and agreed to my attempt at reduction. I therefore applied direct traction to the distal finger and the normal anatomic alignment of the PIP joint was easily restored. A postreduction x-ray shows normal anatomic alignment of the joint with successful reduction and without any fractures. The patient's finger was splinted to its neighbor. The patient is instructed to follow-up with hand surgery next week. Procedures Orthopedic Joint Reduction Joint #1: Time Out Performed: Yes Side: right Joint Reduction Location: finger ( Right pinky finger at PIP joint) Analgesia: none Technique used: traction/counter-traction Post-reduction neuro exam: intact Post-reduction vascular: intact Post Reduction X-Ray Obtained: Yes Post Reduction X-Ray Results: reduced Splint Applied: Yes Patient Tolerated Procedure: well Additional Comments: an aluminum finger splint was applied to the volar aspect of the little and ring fingers. The fingers were palomo-taped together with the aluminum splint. The patient tolerated application of the splint well and the patient remained neurovascularly intact after application of the splint. Discharge Plan Discharge Clinical Impression: Dislocation of proximal interphalangeal joint of right little finger, initial encounter Patient Disposition: Home, Self-Care Instructions: Finger Dislocation (ED) Additional Instructions: You had a dislocation of a joint in your little finger on the right hand. The dislocation has been reduced and the alignment of the bones is now correct. Please keep the finger splinted. If you find the current splint too awkward you may simply tape the little finger to the ring finger instead. Please contact Dr. Myrna Rachel' office on Saturday for a follow up appointment and a recheck of this injury. Dr. Rachel is the doctor who performed your carpal tunnel surgery last March. Call the office on Saturday. Return to the emergency room if any problems. Prescriptions: No Action diphenhydramine HCl [Benadryl] 25 mg capsule 25 mg PO Q4H PRN (Reason: itching) Qty: 20 0RF hydrocortisone [Anti-Itch (HC)] 1 % cream 1 appl topical TID 5 Days Qty: 28.35 0RF acetaminophen 500 mg tablet 500 mg PO Q6H PRN (Reason: fever or pain) Qty: 20 0RF gabapentin 300 mg capsule 300 mg PO TID hydralazine 25 mg tablet 25 mg PO BID Interventions: ED Discharge Assessment Last Done: 11/13/24 22:12 Discharge Date/Time: 11/13/24 22:13 Print Language: Korean
--- OUTSIDE RECORDS SUMMARY | 2024-11-13 18:26 | XMS_ITS | Clinical Summary ---
Author Organization [employer] Address [address] [place] [address] Care Team Providers Care Retail Greeter Name Role Phone Unavailable Primary Care Provider Unavailabl e Social History Tobacco Use Types Packs/Day Years Used Date Smoking Tobacco: Never Assessed Comments Unknown Sex and Gender Information Value Date Recorded Sex Assigned at Female 06/04/2022 10:19 AM EDT Legal Sex Female 10:19 AM EDT Gender Identity Not on file Sexual Orientation Not on file Plan of Treatment Health Maintenance Due Date Last Done Comments CT Colonography 1968 Colonoscopy 1968 Colorectal Cancer Screening 1968 Depression Screening 1968 FIT DNA/Cologuard 1968 FIT 1968 FOBT 1968 HIV Screening 1968 SDOH Screening 1968 Sigmoidoscopy 1968 Alcohol/Substance Use Screening 1980 Tobacco Screening 1980 Hepatitis C Screening 1986 DTaP/Tdap/Td Vaccines (1 - Tdap) 12/07/1987 Hepatitis B Vaccines (1 of 3 - 19+ 3-dose series) 12/07/1987 Pap Smear 1989 Cervical Cancer Screening 1998 HPV/Cotest 1998 Mammogram 2008 Pneumococcal Vaccine: 50+ Ye ars (1 of 1 - PCV) 2018 Zoster Vaccines (1 of 2) 2018 COVID-19 Vaccine ( - 2023-2 5 season) 2024 Influenza Vaccine (#1) 2024 RSV Patients and Pa tients Aged 60 years or older (1 - 1-dose 75+ series) 12/07/2043 HIB Vaccines Aged Out No longer eligi ble based on patient's age to complete this topic HPV Vaccines Aged Out No longer eligi ble based on patient's age to complete this topic Hepatitis A Vaccines Aged Out No long er eligible based on patient's age to complete this topic IPV Vaccines Aged Out No longer eligi ble based on patient's age to complete this topic Meningococcal Vaccine Aged Out No tyron marco eligible based on patient's age to complete this topic RSV under 20 months Aged Out No longe r eligible based on patient's age to complete this topic Rotavirus Vaccines Aged Out No longer eligible based on patient's age to complete this topic Insurance [facility]
--- OUTSIDE RECORDS SUMMARY | 2024-11-13 18:26 | XMS_ITS | Encounter Summary ---
Author Organization [employer] Address [address] [place] [address] Care Team Providers Care Insurance Salesperson Name Role Phone Unavailable Primary Care Provider Unavailabl e Encounter Details Date Type Department Care Team (Latest Contact Info) Description 05/05/2019 Abstract [facility] CONVERSIONS Dental, Provider, DDS Social History Tobacco Use Types Packs/Day Years Used Date Smoking Tobacco: Never Assessed Comments Unknown Sex and Gender Information Value Date Recorded Sex Assigned at Female 06/04/2022 10:19 AM EDT Legal Sex Female 10:19 AM EDT Gender Identity Not on file Sexual Orientation Not on file documented as of this encounter Plan of Treatment Not on file documented as of this encounter Visit Diagnoses Not on filedocumented in this encounter
[2024-11-13 18:38] VITALS: BP 198/100; PULSE 82; RESP 18; TEMP 36.6; O2SAT 99
[2024-11-13 22:02] VITALS: BP 185/98; PULSE 86; RESP 16; TEMP 36.3; O2SAT 98
[2024-11-13 22:12] VITALS: BP 185/98; PULSE 86; RESP 16; TEMP 36.3; O2SAT 98
== END 2024-11-13 22:13 | disposition home or self-care (01) ==
PROVIDERS: Emergency Provider Emergency Medicine; PCP Internal Medicine
DX: S63.286A Dislocation of proximal interphalangeal joint of right little finger, initial encounter (principal); M79.641 Pain in right hand; X58.XXXA Exposure to other specified factors, initial encounter; Y93.F9 Activity, other caregiving; Y93.9 Activity, unspecified; Y92.9 Unspecified place or not applicable; Y99.8 Other external cause status
CPT/HCPCS: 26770; 29130; 73120; 73140; 99283; 99284

== ENCOUNTER → 2024-11-13 17:58 | Outpatient (BNV) | payer OTHER, SELFPAY | PROVIDERS: PCP Internal Medicine; Visit Provider Radiology Diagnostic Radiology | DX: S63.286A Dislocation of proximal interphalangeal joint of right little finger, initial encounter (principal) | CPT/HCPCS: 73120; 73140 ==

== ENCOUNTER 2024-11-25 08:31 | Outpatient (AMB) | payer OTHER, SELFPAY ==
[2024-11-25 08:49] VITALS: BMI 45.7
--- NOTE | 2024-11-25 08:49 | MHC.OFFVIS ---
Vital Signs 11/25/24 08:49 Height 5 ft 6 in Weight 283 lb BMI 45.7 Intake Visit Reasons: Newprob-injury to the RT little finger-DOI 11/13/24 Intake Note: Nancie 53 yr old right hand dominant female presents today for a new problem visit for her right small finger DOI 11/13/24 [place] [facility] [place]. As per ED note, she had a spasm in the fingers of her right hand while she was going down some stairs and carrying a baby in her left arm. She struck her right hand against the wall on her side and sustained an injury to the right small finger so that the finger was bent and she could not extend it. Patient explains her ring and middle finger cramps laterally. Xrays were done in ED and patient was reduced, splinted and referred to Dr Rahcel. Currently states she has a little numbness, tingling and weird sensation . Hx of CTR 03/19/[address] Rachel. Allergies ibuprofen [From MOTRIN] Allergy (Unknown, Verified 11/25/24 08:55) UPSET STOMACH, stomach upset, stomach upset tramadol [TRAMADOL] Allergy (Unknown, Verified 11/25/24 08:55) UPSET STOMACH, nausea and vomiting Pt states no food allergies Allergy (Unknown, Uncoded 11/25/24 08:55) unknown HPI HPI Newprob-injury to the RT little finger-DOI 11/13/24: Details: Nancie is a 53 year old right hand dominant woman who presents for a right small finger dislocation, S/P injury, DOI: 11/13/24. She was seen in the ED the same day, where her finger was reduced & splinted. She presents today with complaints of pain & swelling in her small finger. She says she moves her finger, but this is a struggle. She complains of weakness, cramping, and twisting in her right middle & ring fingers. She says these cramp up and spasm when holding objects. This was present before this injury. She had a right 3rd metacarpal neck fracture, after a fall, DOI: 08/10/23. She has a hx of bilateral carpal tunnel release [place] [address] Hall. She has a Hx of a right repeat carpal tunnel release, DOS: 03/19/24 She has Fibromyalgia [facility] Medical History (Updated 11/25/24 @ 09:16 by Alexandru Gutierres) Panic attacks Seizure Sleep apnea Panic attack Carpal tunnel syndrome Osteoarthritis Fibromyalgia HTN (hypertension) Surgical History History of surgery History of bilateral carpal tunnel release Hx of section Hx of cholecystectomy Hx of tubal ligation Family History Mother HTN (hypertension) Sister Ovarian cancer Maternal Aunt Breast cancer Social History Household Members: Children Housing: [facility] Alcohol intake: current Alcohol intake frequency: holidays/special occasions only Comment: counts correct Patient Tobacco Use Status: Former Tobacco user Advance Directives Date on File: 05/12/20 service: No Current occupational status: disabled Current occupation: rt hand Sexual orientation: Straight/Heterosexual Gender identity: Female Review of Systems Const All systems reviewed & are unremarkable except as noted in HPI and below Physical Exam Vital Signs: BMI result Body Mass Index 45.7 Const General: no acute distress and alert Orientation/consciousness: patient oriented x3 Neuro General: patient oriented x3 Extrem Other: Evaluation of Right Upper Extremity: The patient is alert, oriented, and in no acute distress Neuro: Median, Ulnar, Radial nerves motor and sensory intact and sensation is normal to the tips of all digits Vascular: Cap refill brisk ROM: With encouragement she could bring her fingertips to about 2 cm from her palm and back to full ext SF PIP stable on exam with AROM 0-60 sens intact no lacerations Radiographs: 3 views of the right hand, with attention to the small finger, were taken, viewed, and compared to post-reduction radiographs from 11/13/24 today in clinic. They show a right small finger PIP joint S/P volar dislocation, which has maintained concentric reduction Psych Appearance: grossly normal Affect: normal affect Attitude: cooperative Assessment & Plan Assessment & Plan (1) Dislocation of proximal interphalangeal joint of right little finger: Code(s): S63.286A - Dislocation of proximal interphalangeal joint of right little finger, initial encounter Category: Medical (2) Fibromyalgia: Code(s): M79.7 - Fibromyalgia Category: Medical Plan Assessment & Plan: 1. Right small finger PIP joint volar dislocation, S/P reduction DOI: 11/13/24 Reduced in ED: 11/13/24 I educated her about this condition I recommend activity modification & palomo-taping Her ring & small fingers were Palomo-taped today in clinic. to be worn for the next 4-5 weeks She will work on finger ROM exercises at home She should limit or avoid any heavy lifting, grasping, or impact activities for the next 4-5 weeks We may consider a future referral to OT hand therapy to work on ROM & normalizing function She can follow up prn. Remote hx: 2. Right carpal tunnel syndrome, Right carpal tunnel syndrome, S/P REPEAT carpal tunnel release DOS: 03/19/24 Pre-operative symptoms intermittent, but daily, worse at night, persistent numbness in the index & middle fingers Now with normal sensation Hx of bilateral carpal tunnel release: Right: 11/23/11, by Dr. Hall Left: 05/16/12, by Dr. Hall 3. Left hand numbness In the median nerve distribution Recent NCS done on 09/20/23 showed no evidence of carpal tunnel syndrome or cervical radiculopathy. All findings regarding the left side were normal No complaints today 4. Right 3rd metacarpal head fracture, non-displaced From a fall, DOI: ~08/10/23 Went on to heal well Scribed for Myrna Rachel MD by Alexandru Gutierres, medical/surgery registered nurse, on 11/05/23 at 2:15 PM, EST. Orders: Orders XR hand RT min 3V Today M79.641 - Pain in right hand Scribe Plan - Not visible on output: Scribed for Myrna Rachel MD by Alexandru Gutierres, medical/surgery registered nurse, on [ ] at [ ], EST. Coding Level of Care Code Est Pt Level 3 (37706) Diagnoses Dislocation of proximal interphalangeal joint of right little finger S63.286A Fibromyalgia M79.7
--- OUTSIDE RECORDS SUMMARY | 2024-11-25 08:56 | XMS_ITS | Encounter Summary ---
Author Organization [place] Address [address] [place] [address] Care Team Providers Care Surgical Scrub Technician Name Role Phone Unavailable Primary Care Provider Unavailabl e Encounter Details Date Type Department Care Team (Latest Contact Info) Description 05/05/2019 Abstract [facility] CONVERSIONS Dental, Provider, DDS Social History Tobacco [...]
--- OUTSIDE RECORDS SUMMARY | 2024-11-25 08:56 | XMS_ITS | Clinical Summary ---
Author Organization [facility] Address [address] [place] [address] Phone Care Team Providers Care Campus Safety Officer Name Role Phone Darnell Garcia MD Primary Care Provider [phone] Allergies Active Allergy Reactions Criticality Noted Date Comments Ibuprofen GI intolerance 05/13/2018 Medications Colace 100 mg capsule Take 1 capsule (100 mg total) by mouth 2 (two) times a day if needed for constipation . 09/07/2024 Active gabapentin (NEURONTIN) 300 mg capsule Take 1 capsule (300 mg total) by mouth 4 (four) times a day. Active lisinopril (PRINIVIL,ZESTR IL) 40 mg tablet Take 1 tablet (40 mg total) by mouth 1 (one) time each day. 02/20/2016 Active simvastatin (ZOCOR) 20 mg tablet Take 1 tablet (20 mg total) by mouth at bedtime. 09/03/2024 Active dexAMETHasone (DECADRON) 4 mg tablet Take 1 tablet (4 mg total) by mouth 2 (two) times a day for 5 days. 10 each 09/21/2024 Active Active Problems Problem Noted Date Diagnosed Date Lumbar radiculopathy, acute 09/11/2024 Encounters Date Type Department Care Team Description 10/21/2024 5:00 PM EDT Treatment [address] [address] Rachel Armstrong PT Lumbar radiculopathy, acute (Primary Dx) 09/24/2024 4:00 PM EST Evaluation [address] [address] Rachel Armstrong PT Lumbar radiculopathy, acute (Primary Dx) 09/20/2024 11:27 AM EST - 09/21/2024 2:02 PM EST Emergency [facility] Emergency [address] [place] [phone] King Quinones MD Dunbar, Kevin F, MD Vatrenko, Konstantin, MD Back pain with left-sided radiculopathy (Primary Dx) Discharge Disposition: Home or Self Care 09/11/2024 8:24 PM EST - 09/12/2024 3:07 PM EST Hospital Encounter [facility] Medical Surgical Unit [address] [place] [phone] Iraida Betancourt DO Jones, Christopher, MD Kela, Kashyap Devendrabhai, MD Japaridze, Anna, MD Anterolisthesis of lumbar spine (Primary Dx); Intractable low back pain; Lumbar radiculopathy, acute Discharge Disposition: Home-Health Care [facility] from Last 3 Months Surgical History Surgery Date Site/Laterality Comments CHOLECYSTECTOMY PROCEDURE: HISTORICAL CHOLECYSTECTOMY TUBAL LIGATION PROCEDURE: HISTORICAL TUBAL LIGATION BLADDER SURGERY PROCEDURE: HISTORICAL BLADDER SURGERY SECTION PROCEDURE: HISTORICAL DELIVERY; COMMENT: x 2 CARPAL TUNNEL RELEASE PROCEDURE: HISTORICAL CARPAL TUNNEL REL Medical History Medical History Date Comments Dermatitis 05/13/2018 DX:Dermatitis Hypertension 05/13/2018 DX:Hypertension Carpal tunnel syndrome 09/15/2018 DX:Carpal tunnel syndrome Fatty liver 09/15/2018 DX:Fatty liver Fibromyalgia 09/15/2018 DX:Fibromyalgia Hyperactivity of bladder 09/15/2018 DX:Hype ractivity of bladder Knee pain 09/15/2018 DX:Knee pain Anxiety 11/17/2018 DX:Anxiety Varicose veins of leg with pain 11/17/2018 DX:Varicose veins of leg with pain Hyperlipidemia 11/17/2018 DX:Hyperlipidemi a Family History Medical History Relation Name Comments Osteoporosis Sister Relation Name Status Comments Sister Social History Tobacco Use Types Packs/Day Years Used Date Smoking Tobacco: Never Smokeless Tobacco: Never Alcohol Use Standard Drinks/Week Comments No 0 (1 standard drink = 0.6 oz pur e alcohol) Interpersonal Safety Answer Date Record ed Physical Abuse 09/12/2024 Verbal Abuse 09/12/2024 Comments Unknown Sex and Gender Information Value Date Recorded Sex Assigned at Female 09/11/2024 8:58 PM EST Legal Sex Female 9:48 AM EST Gender Identity Female 09/11/2024 8:58 PM EST Sexual Orientation Straight 09/11/2024 8: 58 PM EST Obstetrics History Last Filed Vital Signs Vital Sign Reading Time Taken Comments Blood Pressure 164/109 09/21/2024 1:43 PM EST Pulse 93 09/21/2024 1:43 PM EST Temperature 36.7 ??C (98.1 ??F) 09/21/2024 1:43 PM ES T Respiratory Rate 18 09/21/2024 1:43 PM EST Oxygen Saturation 96% 09/21/2024 1:43 PM EST Inhaled Oxygen Concentration - - Weight 118 kg (260 lb) 09/20/2024 10:20 AM EST Height 165.1 cm (5' 5 ) 09/20/2024 10:20 AM EST Body Mass Index 43.27 09/20/2024 10:20 AM EST Plan of Treatment Health Maintenance Due Date Last Done Comments Breast Cancer Screening 1970 DTaP,Tdap,and Td Vaccines (1 - Tdap) 12/07/1987 Hepatitis A Vaccines (1 of 2 - Risk 2-dose series) 12/07/1987 Hepatitis B Vaccines (1 of 3 - 19+ 3-dose series) 12/07/1987 Cervical Cancer Screening: P ap Smear 1989 Pneumococcal Vaccine: 50+ Years (1 of 1 - PCV) 2018 Zoster Vaccines (1 of 2) 2018 Cholesterol Screening (Lipid Panel) 07/03/2022 Colorectal Cancer Screening: Colonoscopy 07/03/2022 Depression Screening 07/03/2022 HIV Screening 07/03/2022 Hepatitis C Screening 07/03/2022 Social Influencers of Health Screening 07/03/2022 COVID-19 Vaccine (1 - 2023-2 5 season) 2024 Influenza Vaccine (Season Ended) 2025 Hypertension/CHF/CAD Annual BMP Blood Test 09/12/2025 09/12/2024, 09/11/2024 HIB Vaccines Aged Out No longer eligi ble based on patient's age to complete this topic HPV Vaccines Aged Out No longer eligi ble based on patient's age to complete this topic IPV Vaccines Aged Out No longer eligi ble based on patient's age to complete this topic MMR Vaccines Aged Out No longer eligi ble based on patient's age to complete this topic Meningococcal ACWY Vaccine Aged Out N o longer eligible based on patient's age to complete this topic Meningococcal B Vaccine Aged Out No l onger eligible based on patient's age to complete this topic Pneumococcal Vaccine: Pediatrics (0 to 5 Years) and At-Risk Patients (6 to 64 Years) Aged Out No longer eligible b ased on patient's age to complete this topic RSV Immunization Patients Under 20 months Aged Out No longer eligible b ased on patient's age to complete this topic Varicella Vaccines Aged Out No longer eligible based on patient's age to complete this topic Procedures Procedure Name Priority Date/Time Associated Diagnosis Comments MR LUMBAR SPINE WO CONTRAST STAT 09/20/2024 2:46 PM EST XR LUMBAR SPINE 2-3 VIEWS STAT 09/20/2024 10:50 AM EST CRUM URINE CULTURE TUBE STAT 09/12/2024 8:57 AM EST URINALYSIS WITH REFLEX MICROSCOPIC AND CULTURE STAT 09/12/2024 8:57 AM EST URINALYSIS WITH REFLEX MICROSCOPIC AND CULTURE STAT 09/12/2024 8:57 AM EST CULTURE URINE STAT 09/12/2024 8:57 AM EST CBC WITH AUTO DIFFERENTIAL Routine 09/12/2024 6:41 AM EST CBC AND DIFFERENTIAL Routine 09/12/2024 6:41 AM EST BASIC METABOLIC PANEL Routine 09/12/2024 6:41 AM EST LACTATE STAT 09/12/2024 1:50 AM EST CULTURE BLOOD STAT 09/12/2024 1:50 AM EST C-REACTIVE PROTEIN Add-On 09/11/2024 11 :08 PM EST BASIC METABOLIC PANEL STAT 09/11/2024 11:08 PM EST XR LUMBAR SPINE 2-3 VIEWS STAT 09/11/2024 10:30 PM EST COMPLETE BLOOD COUNT STAT 09/11/2024 9:41 PM EST from Last 3 Months Results * MR Lumbar Spine wo Contrast (09/20/2024 2:46 PM EST) Anatomical Region Laterality Modality L-spine, Spine Magnetic Resonan ce 09/20/2024 3:08 PM EST Impressions 09/20/2024 3:18 PM EST No acute osseous abnormality. ??No significant spinal stenosis There are is multilevel neural foraminal narrowing most prominent at L5-S1. ??There is also narrowing of the left subarticular recess L5-S1 with likely impingement of the traversing left S1 nerve root. -------- FINAL REPORT -------- Dictated By: Valerie Cortez Dictated Date: 09/20/2024 15:08 ET Assigned Physician: Valerie Cortez Reviewed and Electronically Signed By: Valerie Cortez Signed Date: 09/20/2024 15:18 ET Workstation ID: [id number] Transcribed By: Self Edit Transcribed Date: 09/20/2024 15:08 ET Narrative 09/20/2024 3:18 PM EST MRI LUMBAR SPINE W/O CONTRAST INDICATION: L lumbar radiculopathy, unable to ambulate COMPARISON: None. TECHNIQUE: Sagittal T1, T2, and STIR images through the entire lumbar spine, and axial dual-echo T2-weighted images at multiple levels were obtained. FINDINGS: There is mild anterolisthesis of L4 and L5. Normal marrow signal is seen. Vertebral body height is preserved. No fracture is seen. No masses are noted. The conus medullary terminates at the L1 level and is of normal signal and morphology. L1-2:Disc osteophyte bulge asymmetric to the left with mild facet property. ??No significant spinal stenosis. ??There is mild left neural foraminal narrowing. L2-3: Significant bilateral facet arthropathy and mild circumferential disc bulge with mild spinal stenosis. ??No significant neural foraminal narrowing. L3-4: there is no evidence of disc protrusion. ??There is severe bilateral facet arthropathy. The thecal sac is patent. The neural foramina are patent. There is no evidence of nerve root impingement. L4-5: there is no evidence of disc protrusion. ??There is severe bilateral facet arthropathy. ??The thecal sac is patent. The neural foramina are patent. There is no evidence of nerve root impingement. L5-S1: There is prominent circumferential disc bulge with bilateral moderate to severe neuroforaminal narrowing. ??Severe bilateral facet arthropathy. ??No spinal stenosis. ??There is also narrowing of the left subarticular recess and probable enlargement on the traversing left S1 nerve root. Procedure Note Valerie Cortez MD - 09/20/2024 MRI LUMBAR SPINE W/O CONTRAST INDICATION: L lumbar radiculopathy, unable to ambulate COMPARISON: None. TECHNIQUE: Sagittal T1, T2, and STIR images through the entire lumbar spine, andaxial dual- echo T2-weighted images at multiple levels were obtained. FINDINGS: There is mild anterolisthesis of L4 and L5. Normal marrow signal is seen.Vertebral body height is preserved. No fracture is seen. No masses arenoted. The conus medullary terminates at the L1 level and is of normalsignal and morphology. L1-2:Disc osteophyte bulge asymmetric to the left with mild facetproperty. No significant spinal stenosis. There is mild left neuralforaminal narrowing. L2-3: Significant bilateral facet arthropathy and mild circumferentialdisc bulge with mild spinal stenosis. No significant neural foraminalnarrowing. L3-4: there is no evidence of disc protrusion. There is severe bilateralfacet arthropathy. The thecal sac is patent. The neural foramina arepatent. There is no evidence of nerve root impingement. L4-5: there is no evidence of disc protrusion. There is severe bilateralfacet arthropathy. The thecal sac is patent. The neural foramina arepatent. There is no evidence of nerve root impingement. L5-S1: There is prominent circumferential disc bulge with bilateralmoderate to severe neuroforaminal narrowing. Severe bilateral facetarthropathy. No spinal stenosis. There is also narrowing of the leftsubarticular recess and probable enlargement on the traversing left [id number] root. IMPRESSION: No acute osseous abnormality. No significant spinal stenosis There are ismultilevel neural foraminal narrowing most prominent at L5-S1. There isalso narrowing of the left subarticular recess L5-S1 with likelyimpingement of the traversing left S1 nerve root. -------- FINAL REPORT -------- Dictated By: Valerie Cortez Dictated Date: 09/20/2024 15:08 ET Assigned Physician: Valerie Cortez Reviewed and Electronically Signed By: Valerie Cortez Signed Date: 09/20/2024 15:18 ET Workstation ID: [id number] Transcribed By: Self Edit Transcribed Date: 09/20/2024 15:08 ET us Kim HAQUE IMG MRI PROCEDURES Final Resul t * XR Lumbar Spine 2-3 Views (09/20/2024 10:50 AM EST) Only the most recent of2 resultswithin the time period is included. Anatomical Region Laterality Modality Spine, L-spine Radiographic Fifi ging 09/20/2024 10:5 7 AM EST Impressions 09/20/2024 10:59 AM EST FINDINGS/IMPRESSION: No significant change compared to prior examination. ??Stable intervertebral disc height loss and endplate osteophyte formation with a stepwise mild anterolisthesis of L3 on L4 and L4 and L5. Significant facet arthropathy at the lower lumbar levels. ??Significant endplate degenerative changes and intervertebral disc height loss at L5-S1. ??There is no acute fracture. ??Stable thoracic compression deformities. ??Cholecystectomy clips. -------- FINAL REPORT -------- Dictated By: Valerie Cortez Dictated Date: 09/20/2024 10:57 ET Assigned Physician: Valerie Cortez Reviewed and Electronically Signed By: Valerie Cortez Signed Date: 09/20/2024 10:59 ET Workstation ID: [id number] Transcribed By: Self Edit Transcribed Date: 09/20/2024 10:57 ET Narrative 09/20/2024 10:59 AM EST XR LUMBAR SPINE 2-3 VIEWS INDICATION: pain TECHNIQUE: XR LUMBAR SPINE 2-3 VIEWS COMPARISON: 09/11/2024 Procedure Note Valerie Cortez MD - 09/20/2024 XR LUMBAR SPINE 2-3 VIEWS INDICATION: pain TECHNIQUE: XR LUMBAR SPINE 2-3 VIEWS COMPARISON: 09/11/2024 IMPRESSION: FINDINGS/IMPRESSION: No significant change compared to prior examination.Stable intervertebral disc height loss and endplate osteophyte formationwith a stepwise mild anterolisthesis of L3 on L4 and L4 and L5.Significant facet arthropathy at the lower lumbar levels. Significantendplate degenerative changes and intervertebral disc height loss atL5-S1. There is no acute fracture. Stable thoracic compressiondeformities. Cholecystectomy clips. -------- FINAL REPORT -------- Dictated By: Valerie Cortez Dictated Date: 09/20/2024 10:57 ET Assigned Physician: Valerie Cortez Reviewed and Electronically Signed By: Valerie Cortez Signed Date: 09/20/2024 10:59 ET Workstation ID: [id number] Transcribed By: Self Edit Transcribed Date: 09/20/2024 10:57 ET us Jagdeep Molina MD IMG XR PROCEDURES Final Res ult * (ABNORMAL) Urinalysis with reflex microscopic and culture (09/12/2024 8:57 AM EST) Specific [place] Urine 1.020 1.003 - 1.030 LAB URINALYSIS - AUTOMATED METHOD 09/12/2024 10:06 AM [facility] pH, Urine 6.0 5.0 - 8.0 pH LAB URINALYSIS - AUTOMATED METHOD 09/12/2024 10:06 AM [facility] Leukocytes, Urine Moderate(A) Negative LAB URINALYSIS - AUTOMATED METHOD 09/12/2024 10:06 AM [facility] Nitrite, Urine Positive(A) Negative LAB URINALYSIS - AUTOMATED METHOD 09/12/2024 10:06 AM [facility] Protein, Urine Trace <=Trace mg/dL LAB URINALYSIS - AUTOMATED METHOD 09/12/2024 10:06 AM [facility] Glucose, Urine Negative Negative mg/dL LAB URINALYSIS - AUTOMATED METHOD 09/12/2024 10:06 AM [facility] Ketones, Urine 15(A) Negative mg/dL LAB URINALYSIS - AUTOMATED METHOD 09/12/2024 10:06 AM [facility] Urobilinogen , Urine 1.0 0.2 - 1.0 mg/dL LAB URINALYSIS - AUTOMATED METHOD 09/12/2024 10:06 AM [facility] Bilirubin, Urine Negative Negative LAB URINALYSIS - AUTOMATED METHOD 09/12/2024 10:06 AM [facility] Blood, Urine Negative Negative LAB URINALYSIS - AUTOMATED METHOD 09/12/2024 10:06 AM [facility] RBC, Urine 0.0 0 - 4 /HPF LAB URINALYSIS - AUTOMATED METHOD 09/12/2024 10:06 AM [facility] WBC, Urine 54.8(H) 0 - 4 /HPF LAB URINALYSIS - AUTOMATED METHOD 09/12/2024 10:06 AM [facility] Squamous Epithelial, Urine 55 0 - 60 /LPF LAB URINALYSIS - AUTOMATED METHOD 09/12/2024 10:06 AM [facility] Bacteria, Urine Many(A) Negative /HPF LAB URINALYSIS - AUTOMATED METHOD 09/12/2024 10:06 AM [facility] Hyaline Casts, Urine 16.2(H) 0 - 3 /LPF LAB URINALYSIS - AUTOMATED METHOD 09/12/2024 10:06 AM [facility] Urine Urine specimen obtained by clean catch procedure / Unknown Non-blood Collection / Unknown 09/12/2024 8:57 AM EST 09/12/2024 9:37 AM EST Jovany HAQUE LAB URINE ORDERABLES Final R esult [facility] [address] [place] [address], [place] [phone] * Crmu urine culture tube (09/12/2024 8:57 AM EST) Extra Tube Hold for add-ons. 09/12/2024 11:01 AM EST [facility] Comment:Auto resulted. Urine Urine specimen obtained by clean catch procedure / Unknown Non-blood Collection / Unknown 09/12/2024 8:57 AM EST 09/12/2024 9:37 AM EST Jovany HAQUE LAB URINE ORDERABLES Final R esult Performing Organization Address [facility]/ZIP Co de Phone Number [facility] [address] [place] [address], [place] [phone] * (ABNORMAL) Culture urine (09/12/2024 8:57 AM EST) Culture, Urine >100,000 CFU/mL Escherichia coli(A) DON 09/14/2024 9:26 AM EST [facility] Comment: This is an edited result. Previous organism was Gram negative bacilli on 09/13/2024 at 1045 EST. Urine Urine specimen obtained by clean catch procedure / Unknown Non-blood Collection / Unknown 09/12/2024 8:57 AM EST 09/12/2024 10:06 AM EST Narrative [facility] - 09/14/2024 9:26 AM EST Additional colony types present in insignificant amounts. Organism Antibiotic Method Susceptibility Escherichia coli Amoxicillin/Clavulanate DON 4 ug/ml: Susceptible Escherichia coli Ampicillin/Sulbactam DON 4 ug/ml: Susceptible Escherichia coli Piperacillin/Tazobactam DON <=4 ug/ml: Susceptible Escherichia coli Cefazolin (Urine) DON <=1 ug/ml: Susceptible Escherichia coli Cefoxitin DON <=4 ug/ml: Susceptible Escherichia coli Ceftazidime DON <=0.5 ug/ml: Susceptible Escherichia coli Ceftriaxone DON <=0.25 ug/ml: Susceptible Escherichia coli Cefepime DON <=0.12 ug/ml: Susceptible Escherichia coli Meropenem DON <=0.25 ug/ml: Susceptible Escherichia coli Amikacin DON 2 ug/ml: Susceptible Escherichia coli Gentamicin DON <=1 ug/ml: Susceptible Escherichia coli Ciprofloxacin DON 0.5 ug/ml: Intermediate Escherichia coli Levofloxacin DON 1 ug/ml: Intermediate Escherichia coli Nitrofurantoin DON <=16 ug/ml: Susceptible Escherichia coli Trimethoprim/Sulfamethoxazole DON <=20 ug/ml: Susceptible Jovany HAQUE LAB MICROBIOLOGY - GENERAL O RDERABLES Final Result [facility] [address] [place] [address], * (ABNORMAL) CBC auto differential (09/12/2024 6:41 AM EST) WBC 8.4 4.8 - 10.8 K/mcL LAB HEMETOLOGY METHOD 09/12/2024 7:23 AM [facility] RBC 4.80 3.80 - 4.80 M/mcL LAB HEMETOLOGY METHOD 09/12/2024 7:23 AM [facility] Hemoglobin 14.8 11.5 - 16.0 g/dL LAB HEMETOLOGY METHOD 09/12/2024 7:23 AM [facility] Hematocrit 44.2 35.0 - 47.0 % LAB HEMETOLOGY METHOD 09/12/2024 7:23 AM [facility] MCV 91.3 79.0 - 98.0 FL LAB HEMETOLOGY METHOD 09/12/2024 7:23 AM [facility] MCH 30.6 27.0 - 32.0 pcg LAB HEMETOLOGY METHOD 09/12/2024 7:23 AM [facility] MCHC 33.5 32.0 - 37.0 g/dL LAB HEMETOLOGY METHOD 09/12/2024 7:23 AM [facility] RDW 12.7 11.0 - 15.0 % LAB HEMETOLOGY METHOD 09/12/2024 7:23 AM [facility] Platelets 239 130 - 400 K/mcL LAB HEMETOLOGY METHOD 09/12/2024 7:23 AM [facility] MPV 10.5 7.0 - 11.0 FL LAB HEMETOLOGY METHOD 09/12/2024 7:23 AM [facility] NRBC 0.0 <1.0 % LAB HEMETOLOGY METHOD 09/12/2024 7:23 AM [facility] NRBC Absolute 0.00 <0.10 K/mcL LAB HEMETOLOGY METHOD 09/12/2024 7:23 AM [facility] Neutrophils Relative 85.6 % LAB HEMETOLOGY METHOD 09/12/2024 7:23 AM [facility] Lymphocytes Relative 12.1 % LAB HEMETOLOGY METHOD 09/12/2024 7:23 AM [facility] Monocytes Relative 1.3 % LAB HEMETOLOGY METHOD 09/12/2024 7:23 AM [facility] Eosinophils Relative 0.4 % LAB HEMETOLOGY METHOD 09/12/2024 7:23 AM [facility] Basophils Relative 0.1 % LAB HEMETOLOGY METHOD 09/12/2024 7:23 AM [facility] Immature Granulocytes Relative 0.5 % LAB HEMETOLOGY METHOD 09/12/2024 7:23 AM [facility] Neutrophils Absolute 7.16(H) 1.50 - 7.00 K/mcL LAB HEMETOLOGY METHOD 09/12/2024 7:23 AM [facility] Lymphocytes Absolute 1.01 1.00 - 5.00 K/mcL LAB HEMETOLOGY METHOD 09/12/2024 7:23 AM EST [facility] Monocytes Absolute 0.11(L) 0.20 - 1.00 K/mcL LAB HEMETOLOGY METHOD 09/12/2024 7:23 AM [facility] Eosinophils Absolute 0.03 0.00 - 0.50 K/mcL LAB HEMETOLOGY METHOD 09/12/2024 7:23 AM [facility] Basophils Absolute 0.01 0.00 - 0.20 K/mcL LAB HEMETOLOGY METHOD 09/12/2024 7:23 AM [facility] Immature Granulocytes Absolute 0.04(H) 0.00 - 0.03 K/mcL LAB HEMETOLOGY METHOD 09/12/2024 7:23 AM [facility] Blood Venous blood specimen / Unknown Venipuncture / Unknown 09/12/2024 6:41 AM EST 09/12/2024 7:03 AM EST Joseph Armstrong MD LAB BLOOD ORDERABLES Final Result [facility] [address] [place] [address], * (ABNORMAL) Basic metabolic panel (09/12/2024 6:41 AM EST) Only the most recent of2 resultswithin the time period is included. Sodium 134 133 - 145 mmol/L LAB CHEMISTRY METHOD 09/12/2024 7:55 AM [facility] Potassium 4.1 3.5 - 5.5 mmol/L LAB CHEMISTRY METHOD 09/12/2024 7:55 AM [facility] Chloride 103 96 - 110 mmol/L LAB CHEMISTRY METHOD 09/12/2024 7:55 AM [facility] CO2 24 21 - 32 mmol/L LAB CHEMISTRY METHOD 09/12/2024 7:55 AM [facility] Anion Gap 7 3 - 11 LAB CHEMISTRY METHOD 09/12/2024 7:55 AM [facility] Glucose 159(H) 70 - 100 mg/dL LAB CHEMISTRY METHOD 09/12/2024 7:55 AM [facility] BUN 21 5 - 25 mg/dL LAB CHEMISTRY METHOD 09/12/2024 7:55 AM [facility] Creatinine 0.76 0.50 - 1.10 mg/dL LAB CHEMISTRY METHOD 09/12/2024 7:55 AM [facility] eGFR 93 >=60 mL/min/1. 73m2 LAB CHEMISTRY METHOD 09/12/2024 7:55 AM [facility] Comment:Calculation based on the??Chronic Kidney Disease Epidemiology Collaboration (CKD-EPI) equation refit??without adjustment for race. BUN/Creatinine Ratio 27.6 LAB CHEMISTRY METHOD 09/12/2024 7:55 AM [facility] Calcium 8.8 8.5 - 10.5 mg/dL LAB CHEMISTRY METHOD 09/12/2024 7:55 AM [facility] Blood Venous blood specimen / Unknown Venipuncture / Unknown 09/12/2024 6:41 AM EST 09/12/2024 7:02 AM EST us Joseph Armstrong MD LAB BLOOD ORDERABLES Final Result [facility] [address] [place] [address], * Culture blood (09/12/2024 1:50 AM EST) Culture, Blood No growth at 5 days 09/17/2024 6:01 AM [facility] Blood Venous blood specimen / Unknown Venipuncture / Unknown 09/12/2024 1:50 AM EST 09/12/2024 2:05 AM EST Sakshi Kelly NP LAB MICROBIOLOGY - GENER AL ORDERABLES Final Result Performing Organization Address [facility]/ZIP Co de Phone Number [facility] [address] [place] [address], * Lactate (09/12/2024 1:50 AM EST) Lactate 0.8 0.4 - 2.0 mmol/L LAB CHEMISTRY METHOD 09/12/2024 2:37 AM EST [facility] Blood Venous blood specimen / Unknown Venipuncture / Unknown 09/12/2024 1:50 AM EST 09/12/2024 2:06 AM EST Sakshi Kelly NP LAB BLOOD ORDERABLES Fin al Result Performing Organization Address [facility] de Phone Number [facility] [address] [place] [address], * (ABNORMAL) C-reactive protein (09/11/2024 11:08 PM EST) Pathologist [facility] C-Reactive Protein 1.58(H) <=0.50 mg/dL LAB CHEMISTRY METHOD 09/11/2024 11:47 PM EST [facility] Blood Venous blood specimen / Unknown Venipuncture / Unknown 09/11/2024 11:08 PM EST 09/11/2024 11:23 PM EST Joseph Armstrong MD LAB BLOOD ORDERABLES Final Result Performing Organization Address [facility] Co de Phone Number [facility] [address] [place] [address], * (ABNORMAL) CBC (09/11/2024 9:41 PM EST) WBC 12.8(H) 4.8 - 10.8 K/mcL LAB HEMETOLOGY METHOD 09/11/2024 10:05 PM EST [facility] RBC 5.20(H) 3.80 - 4.80 M/mcL LAB HEMETOLOGY METHOD 09/11/2024 10:05 PM [facility] Hemoglobin 16.3(H) 11.5 - 16.0 g/dL LAB HEMETOLOGY METHOD 09/11/2024 10:05 PM [facility] Hematocrit 47.5(H) 35.0 - 47.0 % LAB HEMETOLOGY METHOD 09/11/2024 10:05 PM [facility] MCV 90.6 79.0 - 98.0 FL LAB HEMETOLOGY METHOD 09/11/2024 10:05 PM [facility] MCH 31.1 27.0 - 32.0 pcg LAB HEMETOLOGY METHOD 09/11/2024 10:05 PM [facility] MCHC 34.3 32.0 - 37.0 g/dL LAB HEMETOLOGY METHOD 09/11/2024 10:05 PM [facility] RDW 13.0 11.0 - 15.0 % LAB HEMETOLOGY METHOD 09/11/2024 10:05 PM [facility] Platelets 240 130 - 400 K/mcL LAB HEMETOLOGY METHOD 09/11/2024 10:05 PM [facility] MPV 10.7 7.0 - 11.0 FL LAB HEMETOLOGY METHOD 09/11/2024 10:05 PM [facility] NRBC 0.0 <1.0 % LAB HEMETOLOGY METHOD 09/11/2024 10:05 PM [facility] NRBC Absolute 0.00 <0.10 K/mcL LAB HEMETOLOGY METHOD 09/11/2024 10:05 PM [facility] Blood Venous blood specimen / Unknown Venipuncture / Unknown 09/11/2024 9:41 PM EST 09/11/2024 9:59 PM EST us Jovany HAQUE LAB BLOOD ORDERABLES Final R esult [facility] [address] [place] [address], [place] [phone] from Last 3 Months Insurance * Guarantor: Nancie Cuevas Account Type Relation to Patient Date of Phone Billing Address Personal/Family Self 1970 [address] [place] [address] MEDICAID [facility] Advance Directives * Full Code - Confirmed (Latest Code Status on File) Date Activated Date Inactivated Comments 09/20/2024 6:45 PM 09/21/2024 4:[address] atus was ascertained in the following way: Code status discussion: discussion with patient To update the patient's code status, place a code status order. Do not modify or discontinue any currently active code status orders. * Full Code - Confirmed Date Activated Date Inactivated Comments 09/12/2024 1:34 AM 09/12/2024 5:12 PM This code stat us was ascertained in the following way: Code status discussion: discussion with patient To update the patient's code status, place a code status order. Do not modify or discontinue any currently active code status orders. * Full Code - Default Date Activated Date Inactivated Comments 09/11/2024 11:25 PM 09/12/2024 1:34 AM This is order is used when code status has not been discussed with the patient, or code status is otherwise unknown/unconfirmed To update the patient's code status, place a code status order. Do not modify or discontinue any currently active code status orders. Care Teams Campus Safety Officer Relationship Specialty Start Date End Date Darnell Garcia MD [address] [place] [address] Dr Iam [place] PCP - General Internal Medicine 09/20/24
--- OUTSIDE RECORDS SUMMARY | 2024-11-25 08:56 | XMS_ITS | Clinical Summary ---
Author Organization [employer] Address [address] [facility] 7t [place] [address] Care Team Providers Care Console Operator Name Role Phone Unavailable Primary Care Provider [...] patient's age to complete this topic Insurance [facility] A[facility]
== END 2024-11-25 09:28 | disposition home or self-care (01) ==
LOC: HO.HOS 08:32
PROVIDERS: PCP Internal Medicine; Visit Provider Orthopaedic Surgery
DX: S63.286A Dislocation of proximal interphalangeal joint of right little finger, initial encounter (principal); M79.7 Fibromyalgia
CPT/HCPCS: 99213

== ENCOUNTER → 2024-11-25 08:44 | Outpatient (BNV) | payer OTHER, SELFPAY | PROVIDERS: Visit Provider Radiology Diagnostic Radiology | DX: M79.641 Pain in right hand (principal) | CPT/HCPCS: 73130 ==

== ENCOUNTER 2024-11-25 11:01 | Outpatient (REF) | payer OTHER, SELFPAY ==
--- NOTE | ~2024-11-25 | XR_ITS ---
EXAMINATION: XR HAND, RIGHT CLINICAL INFORMATION: M79.641 - Pain in right hand COMPARISON: November 13, 2024. TECHNIQUE: PA, lateral, and oblique views of the right hand. FINDINGS: No acute cortical disruption or gross malalignment. No lytic or blastic lesions. No subcutaneous emphysema. No metallic or radiopaque foreign body. XR/XR hand RT min 3V IMPRESSION: Negative x-ray. Electronically signed by: Alex Mina MD 11/26/2024 08:53 AM EDT
--- OUTSIDE RECORDS SUMMARY | 2024-11-26 12:59 | XMS_ITS | Encounter Summary ---
Author Organization [facility] Address [address] [place] [address] Care Team Providers Care Elevator Mechanic Name Role Phone Eva Malik Primary Care Provider Unavailabl e Reason for Visit * Reason Onset Date Comments Medical Records 12/24/2017 Encounter Details Date Type Department Care Team Description 12/24/2017 Telephone Allergy - Feeding [address] [address] Lashawn Renee MD Medical Records Social History Tobacco Use Types Packs/Day Years Used Date Smoking Tobacco: Never Assessed Sex Assigned at Date Recorded Not on file documented as of this encounter Miscellaneous Notes * Telephone Encounter - Ai Tobias - 04/24/2018 9:48 AM EDT Patient no showed appointment 04/01/2018. Medical records sent to scan department * Telephone Encounter - Ai Tobias - 12/24/2017 2:58 PM EDT Notes were faxed in for future appointment and put in bin documented in this encounter Plan of Treatment Not on file documented as of this encounter Visit Diagnoses Not on filedocumented in this encounter Care Teams Elevator Mechanic Relationship Specialty Start Date End Date Eva Malik PCP - General Internal Medicine 12/24/17 documented as of this encounter
--- OUTSIDE RECORDS SUMMARY | 2024-11-26 13:00 | XMS_ITS | Clinical Summary ---
Author Organization [facility] Address [address] [place] [address] Phone Care Team Providers Care Vocational Case Manager Name Role Phone Darnell Garcia MD Primary Care Provider [phone] Allergies Active Allergy Reactions Criticality Noted Date [...] Team Description 10/21/2024 5:00 PM EDT Treatment [address] [address] Rachel Armstrong PT Lumbar radiculopathy, acute (Primary Dx) 09/24/2024 4:00 PM EST Evaluation [address] [address] Rachel Armstrong PT Lumbar radiculopathy, acute (Primary Dx) 09/20/2024 11:27 AM EST - 09/21/2024 2:02 PM EST Emergency [facility] Emergency [address] [place] [phone] King Quinones MD Dunbar, Kevin F, MD Vatrenko, Konstantin, MD Back pain with left-sided radiculopathy (Primary Dx) Discharge Disposition: Home or Self Care 09/11/2024 8:24 PM EST - 09/12/2024 3:07 PM EST Hospital Encounter [facility] Medical Surgical Unit [address] [place] [phone] Iraida Betancourt DO Jones, Christopher, MD Kela, Kashyap Devendrabhai, MD Japaridze, Anna, MD Anterolisthesis of lumbar spine (Primary Dx); Intractable low back pain; Lumbar radiculopathy, acute Discharge Disposition: Home-Health Care [facility] from Last 3 Months Surgical History Surgery [...] Signed Date: 09/20/2024 15:18 ET Workstation ID: [id number] Transcribed By: Self Edit Transcribed Date: 09/20/2024 [...] and probable enlargement on the traversing left [id number] root. IMPRESSION: No acute osseous abnormality. No [...] Signed Date: 09/20/2024 15:18 ET Workstation ID: [id number] Transcribed By: Self Edit Transcribed Date: 09/20/2024 [...] Signed Date: 09/20/2024 10:59 ET Workstation ID: [id number] Transcribed By: Self Edit Transcribed Date: 09/20/2024 [...] Signed Date: 09/20/2024 10:59 ET Workstation ID: [id number] Transcribed By: Self Edit Transcribed Date: 09/20/2024 10:57 ET us Jagdeep Molina MD IMG XR PROCEDURES Final Res ult * (ABNORMAL) Urinalysis with reflex microscopic and culture (09/12/2024 8:57 AM EST) Specific [place] Urine 1.020 1.003 - 1.030 LAB URINALYSIS - AUTOMATED METHOD 09/12/2024 10:06 AM [facility] pH, Urine 6.0 5.0 - 8.0 pH LAB URINALYSIS - AUTOMATED METHOD 09/12/2024 10:06 AM [facility] Leukocytes, Urine Moderate(A) Negative LAB URINALYSIS - AUTOMATED METHOD 09/12/2024 10:06 AM [facility] Nitrite, Urine Positive(A) Negative LAB URINALYSIS - AUTOMATED METHOD 09/12/2024 10:06 AM [facility] Protein, Urine Trace <=Trace mg/dL LAB URINALYSIS - AUTOMATED METHOD 09/12/2024 10:06 AM [facility] Glucose, Urine Negative Negative mg/dL LAB URINALYSIS - AUTOMATED METHOD 09/12/2024 10:06 AM [facility] Ketones, Urine 15(A) Negative mg/dL LAB URINALYSIS - AUTOMATED METHOD 09/12/2024 10:06 AM [facility] Urobilinogen , Urine 1.0 0.2 - 1.0 mg/dL LAB URINALYSIS - AUTOMATED METHOD 09/12/2024 10:06 AM [facility] Bilirubin, Urine Negative Negative LAB URINALYSIS - AUTOMATED METHOD 09/12/2024 10:06 AM [facility] Blood, Urine Negative Negative LAB URINALYSIS - AUTOMATED METHOD 09/12/2024 10:06 AM [facility] RBC, Urine 0.0 0 - 4 /HPF LAB URINALYSIS - AUTOMATED METHOD 09/12/2024 10:06 AM [facility] WBC, Urine 54.8(H) 0 - 4 /HPF LAB URINALYSIS - AUTOMATED METHOD 09/12/2024 10:06 AM [facility] Squamous Epithelial, Urine 55 0 - 60 /LPF LAB URINALYSIS - AUTOMATED METHOD 09/12/2024 10:06 AM [facility] Bacteria, Urine Many(A) Negative /HPF LAB URINALYSIS - AUTOMATED METHOD 09/12/2024 10:06 AM [facility] Hyaline Casts, Urine 16.2(H) 0 - 3 /LPF LAB URINALYSIS - AUTOMATED METHOD 09/12/2024 10:06 AM [facility] Urine Urine specimen obtained by clean catch procedure / Unknown Non-blood Collection / Unknown 09/12/2024 8:57 AM EST 09/12/2024 9:37 AM EST Jovany HAQUE LAB URINE ORDERABLES Final R esult [facility] [address] [place] [address], [place] [phone] * Crum urine culture tube (09/12/2024 8:57 AM EST) Extra Tube Hold for add-ons. 09/12/2024 11:01 AM EST [facility] Comment:Auto resulted. Urine Urine specimen obtained by clean catch procedure / Unknown Non-blood Collection / Unknown 09/12/2024 8:57 AM EST 09/12/2024 9:37 AM EST Jovany HAQUE LAB URINE ORDERABLES Final R esult Performing Organization Address [facility]/ZIP Co de Phone Number [facility] [address] [place] [address], [place] [phone] * (ABNORMAL) Culture urine (09/12/2024 8:57 AM EST) Culture, Urine >100,000 CFU/mL Escherichia coli(A) DON 09/14/2024 9:26 AM EST [facility] Comment: This is an edited result. Previous organism was Gram negative bacilli on 09/13/2024 at 1045 EST. Urine Urine specimen obtained by clean catch procedure / Unknown Non-blood Collection / Unknown 09/12/2024 8:57 AM EST 09/12/2024 10:06 AM EST Narrative [facility] - 09/14/2024 9:26 AM [...] DON 2 ug/ml: Susceptible Escherichia coli Gentamicin ODN <=1 ug/ml: Susceptible Escherichia coli Ciprofloxacin DON 0.5 ug/ml: Intermediate Escherichia coli Levofloxacin DON 1 ug/ml: Intermediate Escherichia coli Nitrofurantoin DON <=16 ug/ml: Susceptible Escherichia coli Trimethoprim/Sulfamethoxazole DON <=20 ug/ml: Susceptible Jovany HAQUE LAB MICROBIOLOGY - GENERAL O RDERABLES Final Result [facility] [address] [place] [address], * (ABNORMAL) CBC auto differential (09/12/2024 6:41 AM EST) WBC 8.4 4.8 - 10.8 K/mcL LAB HEMETOLOGY METHOD 09/12/2024 7:23 AM [facility] RBC 4.80 3.80 - 4.80 M/mcL LAB HEMETOLOGY METHOD 09/12/2024 7:23 AM [facility] Hemoglobin 14.8 11.5 - 16.0 g/dL LAB HEMETOLOGY METHOD 09/12/2024 7:23 AM [facility] Hematocrit 44.2 35.0 - 47.0 % LAB HEMETOLOGY METHOD 09/12/2024 7:23 AM [facility] MCV 91.3 79.0 - 98.0 FL LAB HEMETOLOGY METHOD 09/12/2024 7:23 AM [facility] MCH 30.6 27.0 - 32.0 pcg LAB HEMETOLOGY METHOD 09/12/2024 7:23 AM [facility] MCHC 33.5 32.0 - 37.0 g/dL LAB HEMETOLOGY METHOD 09/12/2024 7:23 AM [facility] RDW 12.7 11.0 - 15.0 % LAB HEMETOLOGY METHOD 09/12/2024 7:23 AM [facility] Platelets 239 130 - 400 K/mcL LAB HEMETOLOGY METHOD 09/12/2024 7:23 AM [facility] MPV 10.5 7.0 - 11.0 FL LAB HEMETOLOGY METHOD 09/12/2024 7:23 AM [facility] NRBC 0.0 <1.0 % LAB HEMETOLOGY METHOD 09/12/2024 7:23 AM [facility] NRBC Absolute 0.00 <0.10 K/mcL LAB HEMETOLOGY METHOD 09/12/2024 7:23 AM [facility] Neutrophils Relative 85.6 % LAB HEMETOLOGY METHOD 09/12/2024 7:23 AM [facility] Lymphocytes Relative 12.1 % LAB HEMETOLOGY METHOD 09/12/2024 7:23 AM [facility] Monocytes Relative 1.3 % LAB HEMETOLOGY METHOD 09/12/2024 7:23 AM [facility] Eosinophils Relative 0.4 % LAB HEMETOLOGY METHOD 09/12/2024 7:23 AM [facility] Basophils Relative 0.1 % LAB HEMETOLOGY METHOD 09/12/2024 7:23 AM [facility] Immature Granulocytes Relative 0.5 % LAB HEMETOLOGY METHOD 09/12/2024 7:23 AM [facility] Neutrophils Absolute 7.16(H) 1.50 - 7.00 K/mcL LAB HEMETOLOGY METHOD 09/12/2024 7:23 AM [facility] Lymphocytes Absolute 1.01 1.00 - 5.00 K/mcL LAB HEMETOLOGY METHOD 09/12/2024 7:23 AM EST [facility] Monocytes Absolute 0.11(L) 0.20 - 1.00 K/mcL LAB HEMETOLOGY METHOD 09/12/2024 7:23 AM [facility] Eosinophils Absolute 0.03 0.00 - 0.50 K/mcL LAB HEMETOLOGY METHOD 09/12/2024 7:23 AM [facility] Basophils Absolute 0.01 0.00 - 0.20 K/mcL LAB HEMETOLOGY METHOD 09/12/2024 7:23 AM [facility] Immature Granulocytes Absolute 0.04(H) 0.00 - 0.03 K/mcL LAB HEMETOLOGY METHOD 09/12/2024 7:23 AM [facility] Blood Venous blood specimen / Unknown Venipuncture / Unknown 09/12/2024 6:41 AM EST 09/12/2024 7:03 AM EST Joseph Armstrong MD LAB BLOOD ORDERABLES Final Result [facility] [address] [place] [address], * (ABNORMAL) Basic metabolic panel (09/12/2024 6:41 AM EST) Only the most recent of2 resultswithin the time period is included. Sodium 134 133 - 145 mmol/L LAB CHEMISTRY METHOD 09/12/2024 7:55 AM [facility] Potassium 4.1 3.5 - 5.5 mmol/L LAB CHEMISTRY METHOD 09/12/2024 7:55 AM [facility] Chloride 103 96 - 110 mmol/L LAB CHEMISTRY METHOD 09/12/2024 7:55 AM [facility] CO2 24 21 - 32 mmol/L LAB CHEMISTRY METHOD 09/12/2024 7:55 AM [facility] Anion Gap 7 3 - 11 LAB CHEMISTRY METHOD 09/12/2024 7:55 AM [facility] Glucose 159(H) 70 - 100 mg/dL LAB CHEMISTRY METHOD 09/12/2024 7:55 AM [facility] BUN 21 5 - 25 mg/dL LAB CHEMISTRY METHOD 09/12/2024 7:55 AM [facility] Creatinine 0.76 0.50 - 1.10 mg/dL LAB CHEMISTRY METHOD 09/12/2024 7:55 AM [facility] eGFR 93 >=60 mL/min/1. 73m2 LAB CHEMISTRY METHOD 09/12/2024 7:55 AM [facility] Comment:Calculation based on the??Chronic Kidney Disease Epidemiology Collaboration (CKD-EPI) equation refit??without adjustment for race. BUN/Creatinine Ratio 27.6 LAB CHEMISTRY METHOD 09/12/2024 7:55 AM [facility] Calcium 8.8 8.5 - 10.5 mg/dL LAB CHEMISTRY METHOD 09/12/2024 7:55 AM [facility] Blood Venous blood specimen / Unknown Venipuncture / Unknown 09/12/2024 6:41 AM EST 09/12/2024 7:02 AM EST us Joseph Armstrong MD LAB BLOOD ORDERABLES Final Result [facility] [address] [place] [address], * Culture blood (09/12/2024 1:50 AM EST) Culture, Blood No growth at 5 days 09/17/2024 6:01 AM [facility] Blood Venous blood specimen / Unknown Venipuncture / Unknown 09/12/2024 1:50 AM EST 09/12/2024 2:05 AM EST Sakshi Kelly NP LAB MICROBIOLOGY - GENER AL ORDERABLES Final Result Performing Organization Address [facility]/ZIP Co de Phone Number [facility] [address] [place] [address], * Lactate (09/12/2024 1:50 AM EST) Lactate 0.8 0.4 - 2.0 mmol/L LAB CHEMISTRY METHOD 09/12/2024 2:37 AM EST [facility] Blood Venous blood specimen / Unknown Venipuncture / Unknown 09/12/2024 1:50 AM EST 09/12/2024 2:06 AM EST Sakshi Kelly NP LAB BLOOD ORDERABLES Fin al Result Performing Organization Address [facility] de Phone Number [facility] [address] [place] [address], * (ABNORMAL) C-reactive protein (09/11/2024 11:08 PM EST) Pathologist [facility] C-Reactive Protein 1.58(H) <=0.50 mg/dL LAB CHEMISTRY METHOD 09/11/2024 11:47 PM EST [facility] Blood Venous blood specimen / Unknown Venipuncture / Unknown 09/11/2024 11:08 PM EST 09/11/2024 11:23 PM EST Joseph Armstrong MD LAB BLOOD ORDERABLES Final Result Performing Organization Address [facility] Co de Phone Number [facility] [address] [place] [address], * (ABNORMAL) CBC (09/11/2024 9:41 PM EST) WBC 12.8(H) 4.8 - 10.8 K/mcL LAB HEMETOLOGY METHOD 09/11/2024 10:05 PM EST [facility] RBC 5.20(H) 3.80 - 4.80 M/mcL LAB HEMETOLOGY METHOD 09/11/2024 10:05 PM [facility] Hemoglobin 16.3(H) 11.5 - 16.0 g/dL LAB HEMETOLOGY METHOD 09/11/2024 10:05 PM [facility] Hematocrit 47.5(H) 35.0 - 47.0 % LAB HEMETOLOGY METHOD 09/11/2024 10:05 PM [facility] MCV 90.6 79.0 - 98.0 FL LAB HEMETOLOGY METHOD 09/11/2024 10:05 PM [facility] MCH 31.1 27.0 - 32.0 pcg LAB HEMETOLOGY METHOD 09/11/2024 10:05 PM [facility] MCHC 34.3 32.0 - 37.0 g/dL LAB HEMETOLOGY METHOD 09/11/2024 10:05 PM [facility] RDW 13.0 11.0 - 15.0 % LAB HEMETOLOGY METHOD 09/11/2024 10:05 PM [facility] Platelets 240 130 - 400 K/mcL LAB HEMETOLOGY METHOD 09/11/2024 10:05 PM [facility] MPV 10.7 7.0 - 11.0 FL LAB HEMETOLOGY METHOD 09/11/2024 10:05 PM [facility] NRBC 0.0 <1.0 % LAB HEMETOLOGY METHOD 09/11/2024 10:05 PM [facility] NRBC Absolute 0.00 <0.10 K/mcL LAB HEMETOLOGY METHOD 09/11/2024 10:05 PM [facility] Blood Venous blood specimen / Unknown Venipuncture / Unknown 09/11/2024 9:41 PM EST 09/11/2024 9:59 PM EST us Jovany HAQUE LAB BLOOD ORDERABLES Final R esult [facility] [address] [place] [address], [place] [phone] from Last 3 Months Insurance * Guarantor: Nancie Cuevas Account Type Relation to Patient Date of Phone Billing Address Personal/Family Self 1970 [address] [place] [address] MEDICAID [facility] Advance Directives * Full Code - [...] currently active code status orders. Care Teams Vocational Case Manager Relationship Specialty Start Date End Date Darnell Garcia MD [address] [place] [address] Dr Iam [place] PCP - General Internal Medicine 09/20/24
--- OUTSIDE RECORDS SUMMARY | 2024-11-26 13:00 | XMS_ITS | Encounter Summary ---
Author Organization [facility] Address [address] [facility] [address] [place] [address] Care Team Providers Care Closing Manager Name Role Phone Unavailable Primary Care Provider Unavailabl e Encounter Details Date Type Department Care Team (Latest Contact Info) Description 05/05/2019 Abstract [facility] CONVERSIONS Dental, Provider, DDS Social History [...]
--- OUTSIDE RECORDS SUMMARY | 2024-11-26 13:00 | XMS_ITS | Clinical Summary ---
Author Organization [employer] Address [address] [facility] [address] [place] [address] Care Team Providers Care Carpet Repairer Name Role Phone Unavailable Primary Care Provider [...] patient's age to complete this topic Insurance [facility] ACO
== END 2024-11-25 11:02 | disposition home or self-care (01) ==
LOC: HO.HOSX 11:01
PROVIDERS: Visit Provider Orthopaedic Surgery
DX: M79.641 Pain in right hand (principal); M79.7 Fibromyalgia; S63.286A Dislocation of proximal interphalangeal joint of right little finger, initial encounter; W22.01XA Walked into wall, initial encounter; Y93.01 Activity, walking, marching and hiking; Y92.009 Unspecified place in unspecified non-institutional (private) residence as the place of occurrence of the external cause; Y99.9 Unspecified external cause status
CPT/HCPCS: 73130; 99212

== ENCOUNTER 2025-01-06 09:26 | Outpatient (REF) | payer OTHER, SELFPAY ==
--- OUTSIDE RECORDS SUMMARY | 2025-01-07 10:25 | XMS_ITS | Clinical Summary ---
Author Organization [facility] Address [address] [place] [address] Phone Care Team Providers Care Blanket Maker Name Role Phone Darnell Garcia MD Primary Care Provider Allergies Active Allergy Reactions Criticality Noted Date [...] Team Description 10/21/2024 5:00 PM EDT Treatment [facility] [address] [address] Rachel Armstrong PT Lumbar radiculopathy, acute (Primary Dx) from Last 3 Months Surgical History Surgery [...] Influencers of Health Screening 07/03/2022 COVID-19 Vaccine ( - 2023-2 5 season) [...] Procedure Name Priority Date/Time Associated Diagnosis Comments BASIC METABOLIC PANEL Routine 09/12/2024 6:41 AM EST from Last 3 Months or Most Recently Relevant to Health Maintenance Results * (ABNORMAL) Basic metabolic panel (09/12/2024 6:41 AM EST) Sodium 134 133 - 145 mmol/L LAB CHEMISTRY METHOD 09/12/2024 7:55 AM [facility] Potassium 4.1 3.5 - 5.5 mmol/L LAB CHEMISTRY METHOD 09/12/2024 7:55 AM [facility] Chloride 103 96 - 110 mmol/L LAB CHEMISTRY METHOD 09/12/2024 7:55 AM [facility] CO2 24 21 - 32 mmol/L LAB CHEMISTRY METHOD 09/12/2024 7:55 AM [facility] Anion Gap 7 3 - 11 LAB CHEMISTRY METHOD 09/12/2024 7:55 AM [facility] Glucose 159(H) 70 - 100 mg/dL LAB CHEMISTRY METHOD 09/12/2024 7:55 AM [facility] BUN 21 5 - 25 mg/dL LAB CHEMISTRY METHOD 09/12/2024 7:55 AM [facility] Creatinine 0.76 0.50 - 1.10 mg/dL LAB CHEMISTRY METHOD 09/12/2024 7:55 AM [facility] eGFR 93 >=60 mL/min/1. 73m2 LAB CHEMISTRY METHOD 09/12/2024 7:55 AM [facility] Comment:Calculation based on the??Chronic Kidney Disease Epidemiology Collaboration (CKD-EPI) equation refit??without adjustment for race. BUN/Creatinine Ratio 27.6 LAB CHEMISTRY METHOD 09/12/2024 7:55 AM [facility] Calcium 8.8 8.5 - 10.5 mg/dL LAB CHEMISTRY METHOD 09/12/2024 7:55 AM [facility] Blood Venous blood specimen / Unknown Venipuncture / Unknown 09/12/2024 6:41 AM EST 09/12/2024 7:02 AM EST us Joseph Armstrong MD LAB BLOOD ORDERABLES Final Result [facility] [address] [place] [address], [place] [phone] from Last 3 Months or Most Recently Relevant to Health Maintenance Insurance * Guarantor: Nancie Cuevas Account Type Relation to Patient Date of Phone Billing Address Personal/Family Self 1970 [address] [place] [id number] MED[place] - [place] Advance Directives * Full Code - Confirmed [...] currently active code status orders. Care Teams Blanket Maker Relationship Specialty Start Date End Date Darnell Garcia MD [address] [place] [address] Dr Iam [place] PCP - General Internal Medicine 09/20/24
== END 2025-01-06 09:27 | disposition home or self-care (01) ==
LOC: HO.HOSX 09:26
PROVIDERS: Visit Provider Orthopaedic Surgery
DX: Z13.89 Encounter for screening for other disorder (principal)

== ENCOUNTER 2025-01-29 12:35 | Outpatient (AMB) | payer OTHER, SELFPAY ==
--- NOTE | 2025-01-29 12:57 | A.OFFVIS_ITS ---
Intake Visit Reasons: B/L knee (80), last injection 10/29/24 Intake Note: Nancie is a 54 year old female who presents today for a repeat bilateral knee injections (80), last injection 10/29/24. Patient reports her last injections gave her relief and she would like to repeat. She expresses an increase in pain in the bilatrqal knees especially with ambulation. She reports her knees have been locking, when she feels this she takes a minute before continuing to walk. Allergies ibuprofen (From MOTRIN) Allergy (Unknown, Verified 01/29/25 12:58) UPSET STOMACH, stomach upset, stomach upset tramadol (TRAMADOL) Allergy (Unknown, Verified 01/29/25 12:58) UPSET STOMACH, nausea and vomiting Pt states no food allergies Allergy (Unknown, Uncoded 01/29/25 12:58) unknown HPI HPI B/L knee (80), last injection 10/29/24: Details: Patient is a 54-year-old female who presents to the office today for repeat bilateral knee cortisone injections. Her last injection was on 10/29/2024 and get her great relief. [facility] Medical History Panic attacks Seizure Sleep apnea Panic attack Carpal tunnel syndrome Osteoarthritis Fibromyalgia HTN (hypertension) Surgical History History of surgery History of bilateral carpal tunnel release Hx of section Hx of cholecystectomy Hx of tubal ligation Family History Mother HTN (hypertension) Sister Ovarian cancer Maternal Aunt Breast cancer Social History Household Members: Children [facility] Alcohol intake: current Alcohol intake frequency: holidays/special occasions only Comment: counts correct Patient Tobacco Use Status: Former Tobacco user Advance Directives Date on File: 05/12/20 service: No Current occupational status: disabled Current occupation: rt hand Sexual orientation: Straight/Heterosexual Gender identity: Female Review of Systems Const All systems reviewed & are unremarkable except as noted in HPI and below Physical Exam Const General: cooperative, healthy appearing and no acute distress Resp Effort & Inspection: normal respiratory effort and able to speak in complete sentences Cardio Rate: regular rate Peripheral pulses: Peripheral pulses 2+ throughout Skin Lesions: no lesions Rashes: no rashes Extrem Other: Bilateral knees: Normal to inspection. No ecchymosis, erythema, or joint effusion. Full ROM bilaterally. No tenderness at the medial and lateral joint lines. Negative Radha's. NVI. Office Procedures AMB Joint Injection/Aspiration Joint Injection/Aspiration Primary Site: right knee Secondary Site: left knee Prep: site was prepped using aseptic technique, ethochloride spray was applied and injection warnings given Injected: 80 mg of, DepoMedrol, with 8 mL of (2% plain lidocaine) and in the joint Approach Used: anterolateral Procedure: The patient tolerated the procedure well, but had some pain with the injection and there was some relief with the local anesthesia Coding 69172 - Bilateral Large Joint Procedure code (CPT) selection complete Assessment & Plan Assessment & Plan (1) Bilateral primary osteoarthritis of knee: Code(s): M17.0 - Bilateral primary osteoarthritis of knee Category: Medical Plan The patient was offered a cortisone injection in bilateral knees with 80 mg of DepoMedrol. The patient was explained the risks, benefits, and alternatives to receiving this injection. After receiving consent for the injection, the patient had the procedure done while in the office today. The patient tolerated the procedure well with no complications. Follow-up will be PRN, or sooner if needed Coding Level of Care Code Est Pt Level 3 (77888) Diagnoses Bilateral primary osteoarthritis of knee M17.0 CPT Codes Coding - 95595 - Bilateral Large Joint: 00347 - Bilateral Large Joint ([id number])
--- OUTSIDE RECORDS SUMMARY | 2025-01-29 13:14 | XMS_ITS | Clinical Summary ---
Author Organization [facility] Address [address] [place] [id number] Phone Care Team Providers Care Sales Representative Printing Paper Name Role Phone Darnell Garcia MD Primary Care Provider [phone] Allergies Active Allergy Reactions Criticality Noted Date [...] Date Diagnosed Date Lumbar radiculopathy, acute 09/11/2024 Surgical History Surgery Date Site/Laterality Comments CHOLECYSTECTOMY [...] 93 09/21/2024 1:43 PM EST Temperature 36.7 C (98.1 F) 09/21/2024 1:43 PM EST Respiratory Rate 18 09/21/2024 1:43 PM EST [...] Influencers of Health Screening 07/03/2022 COVID-19 Vaccine (2023-2 5 season) 2024 Influenza Vaccine (Season Ended) [...] mmol/L LAB CHEMISTRY METHOD 09/12/2024 7:55 AM EST [facility] Potassium 4.1 3.5 - 5.5 mmol/L LAB CHEMISTRY METHOD 09/12/2024 7:55 AM EST [facility] Chloride 103 96 - 110 mmol/L LAB CHEMISTRY METHOD 09/12/2024 7:55 AM EST [facility] CO2 24 21 - 32 mmol/L LAB CHEMISTRY METHOD 09/12/2024 7:55 AM [facility] Anion Gap 7 3 - 11 LAB CHEMISTRY METHOD 09/12/2024 7:55 AM [facility] Glucose 159(H) 70 - 100 mg/dL LAB CHEMISTRY METHOD 09/12/2024 7:55 AM [facility] BUN 21 5 - 25 mg/dL LAB CHEMISTRY METHOD 09/12/2024 7:55 AM [facility] Creatinine 0.76 0.50 - 1.10 mg/dL LAB CHEMISTRY METHOD 09/12/2024 7:55 AM [facility] eGFR 93 >=60 mL/min/1. 73m2 LAB CHEMISTRY METHOD 09/12/2024 7:55 AM [facility] Comment:Calculation based on the Chronic Kidney Disease Epidemiology Collaboration (CKD-EPI) equation refit without adjustment for race. BUN/Creatinine Ratio 27.6 LAB CHEMISTRY METHOD 09/12/2024 7:55 AM [facility] Calcium 8.8 8.5 - 10.5 mg/dL LAB CHEMISTRY METHOD 09/12/2024 7:55 AM [facility] Blood Venous blood specimen / Unknown Venipuncture / Unknown 09/12/2024 6:41 AM EST 09/12/2024 7:02 AM EST us Joseph Armstrong MD LAB BLOOD ORDERABLES Final Result [facility] [address] [place] [address], from Last 3 Months or Most Recently Relevant to Health Maintenance Insurance * Guarantor: Nancie Cuevas Account Type Relation to Patient Date of Phone Billing Address Personal/Family Self 1970 [address] [place] [id number] MEDICAID - [place] Advance Directives * Full Code - Confirmed [...] currently active code status orders. Care Teams Sales Representative Printing Paper Relationship Specialty Start Date End Date Darnell Garcia MD [address] [place] [address] Dr Iam [place] PCP - General Internal Medicine 09/20/24
== END 2025-01-29 13:12 | disposition home or self-care (01) ==
LOC: HO.HOS 12:36
PROVIDERS: PCP Internal Medicine; Visit Provider Physician Assistant
DX: M17.0 Bilateral primary osteoarthritis of knee (principal)
CPT/HCPCS: 20610

== ENCOUNTER → 2025-01-29 12:35 | Outpatient (BNVA) | payer OTHER, SELFPAY | PROVIDERS: PCP Internal Medicine; Visit Provider Physician Assistant | DX: M17.0 Bilateral primary osteoarthritis of knee (principal) | CPT/HCPCS: 20610; J1010; J2003 ==

== ENCOUNTER 2025-04-24 13:09 | Emergency (ER) | payer OTHER, SELFPAY ==
--- NOTE | 2025-04-24 | ECG_ITS ---
Test Reason : palpitations Blood Pressure : */* mmHG Vent. Rate : 92 BPM Atrial Rate : 92 BPM P-R Int : 162 ms QRS Dur : 68 ms QT Int : 370 ms P-R-T Axes : 70 29 63 degrees QTcB Int : 457 ms Normal sinus rhythm Normal ECG When compared with ECG of 03-Sep-2024 21:14, No significant change was found Referred By: Generic ED Physician Electronically Signed By: KARLO HEARN
--- NOTE | ~2025-04-24 | XR_ITS ---
CLINICAL HISTORY: SOB 2 view chest x-ray. Comparison: None Findings: Normal lung volumes. Bilateral interstitial thickening. No pneumothorax or pleural effusion. Heart size normal. Passive venous congestion. No midline shift or tracheal deviation. No acute fracture. Impression: 1. Suspect passive venous congestion /fluid overload. This document has been electronically signed by: Dmitriy Kumar MD on 04/24/2025 15:17:09
[2025-04-24 13:28] VITALS: BP 209/106; PULSE 99; RESP 34; TEMP 36.8; O2SAT 98; BMI 47.2
--- NOTE | 2025-04-24 13:28 | ED.SOB ---
HPI - SOB/Dyspnea General Chief Complaint: Upper Respiratory Symptoms Stated Complaint: heart palpitation,cough, sob, nausea, Time Seen by Provider: 04/24/25 14:08 Source: patient Mode of arrival: ambulatory Limitations: no limitations History of Present Illness ED Provider: DR. Fry HPI Narrative: 54-year-old female for evaluation of flu-like symptoms, headache, runny nose, congestion, shortness of breath, coughing with no phlegm production, no fever, no chills, no sick contacts, no recent travel, no lower extremity swelling or tenderness. Related Data Home Medications ?Medication ?Instructions ?Recorded ?Confirmed gabapentin 300 mg capsule 300 mg PO TID 07/12/22 07/04/23 hydralazine 25 mg tablet 25 mg PO BID 08/14/23 Previous Rx's ?Medication ?Instructions ?Recorded diphenhydramine HCl 25 mg capsule 25 mg PO Q4H PRN itching #20 caps 10/30/22 (Benadryl) hydrocortisone 1 % topical cream 1 appl topical TID 5 days #28.35 10/30/22 (Anti-Itch (hydrocortisone)) grams acetaminophen 500 mg tablet 500 mg PO Q6H PRN fever or pain 07/17/23 #20 tabs albuterol sulfate 90 mcg/actuation 2 inh inhalation Q4-6H PRN 04/24/25 breath activated powder shortness of breath or wheezing #1 inhaler,sensor ea azithromycin 250 mg tablet See Rx Instructions PO .COMPLEX #6 04/24/25 (Zithromax Z-Pedrito) tabs prednisone 20 mg tablet 20 mg PO BID #10 tabs 04/24/25 Allergies Allergy/AdvReac Type Severity Reaction Status Date / Time ibuprofen (From MOTRIN) Allergy Unknown UPSET Verified 04/24/25 13:32 STOMACH, stomach upset, stomach upset tramadol (TRAMADOL) Allergy Unknown UPSET Verified 04/24/25 13:32 STOMACH, nausea and vomiting Pt states no food allergies Allergy Unknown unknown Uncoded 01/29/25 12:58 Review of Systems Review of Systems: All other systems are reviewed and are negative Constitutional: Reports as per HPI and Reports no additional constitutional complaints Eyes: Reports as per HPI and Reports no additional eye complaints Reports system reviewed and no additional complaints, except as documented Cardiovascular: Reports as per HPI and Reports no additional cardiovascular complaints Respiratory: Reports as per HPI and Reports no additional respiratory complaints Gastrointestinal: Reports as per HPI and Reports no additional gastrointestinal complaints Genitourinary: Reports no additional female genitourinary complaints Musculoskeletal: Reports no additional musculoskeletal complaints Skin/Breast: Reports system reviewed and no additional complaints, except as docu Psychiatric: Reports no additional psychiatric complaints Endocrine: Reports no additional endocrine complaints Hematologic/Lymphatic: Reports no additional hematologic/lymphatic complaints Allergic/Immunologic: Reports no additional allergic/immunologic complaints Reports system reviewed and no additional complaints, except as documented and Reports Abnormal speech present [facility] Past Medical History Medical History Panic attacks Seizure Sleep apnea Panic attack Carpal tunnel syndrome Osteoarthritis Fibromyalgia HTN (hypertension) Surgical History History of surgery History of bilateral carpal tunnel release Hx of section Hx of cholecystectomy Hx of tubal ligation Family History Family History Mother HTN (hypertension) Sister Ovarian cancer Maternal Aunt Breast cancer Social History Social History Household Members: Children [facility] Alcohol intake: current Alcohol intake frequency: holidays/special occasions only Comment: counts correct Patient Tobacco Use Status: Former Tobacco user Advance Directives: No Advance Directives Information Provided: Yes Advance Directives Date on File: 05/12/20 Do you have a plan to hurt others: No Plan service: No Current occupational status: disabled Current occupation: rt hand Sexual orientation: Straight/Heterosexual Gender identity: Female Physical Exam Vital Signs: Vital Signs: Last Vital Signs Temp 98.8 F 04/24/25 14:31 Pulse 87 04/24/25 14:31 Resp 22 H 04/24/25 14:31 BP 209/106 H 04/24/25 13:28 Pulse Ox 96 04/24/25 14:31 O2 Del Method Room Air 04/24/25 14:31 BMI result Body Mass Index 47.2 Vital signs have been reviewed and appear to be correct. Blood pressure elevated. Heart rate normal. Respiratory rate normal. Temperature normal. Oxygen saturation normal. Appearance: Alert. Oriented X3. No acute distress. Head: Normal external exam. Normocephalic. Atraumatic. No Hills signs noted. No raccoon eyes noted Eyes: PERRLA. EOMI. Conjunctiva and sclera normal. Eyelids normal. ENT: TM's Normal. Pharynx normal. Uvula midline. Moist mucous membranes. No trismus noted. No drooling noted. No muffled voice noted. Neck: Normal inspection. Neck supple. FROM. No adenopathy. Thyroid Normal. No meningeal signs. No neck mass noted. CVS: Normal heart rate and rhythm. Heart sound normal. No murmurs noted. Pulses normal throughout. Respiratory: No respiratory distress. Painless inspiration. Breath sounds normal. No wheezes/rales/rhonchi noted. Chest nontender. No accessory muscle usage noted or decreased air movement noted. Abdomen: Soft and nontender. Bowel sounds normal in all 4 quadrants. No distention noted. No organomegaly noted. No visible injury noted. Back: No CVA tenderness. Full range of motion noted. Skin: Skin warm and dry. Normal skin color. Normal skin turgor. No rashes/lesions/lacerations noted. Extremities: No lower extremity edema. Extremities exhibit normal range of motion. Extremities nontender. Neuro: Oriented X 3. Cranial nerve exam: II-XII are grossly intact No motor deficit. No sensory deficit. Reflexes normal. Course Course Course Narrative: This is an RME: Additional HPI, ROS, PE not included below will be deferred to primary provider. RME assessment and note performed by: Helena Mora PA-C This is a [id number]-female, with a hx of HTN, seizure disorder, who presents to the ER with a complaint of shortness of breath since yesterday. Lungs are diminished with expiratory wheeze noted throughout. Tachypneic. Plan: EKG, viral swabs, labs, cxr, further er eval needed Reevaluation(s) Reevaluation #1: Examined finding consistent with acute bronchitis, will start the patient on Z-Pedrito, prednisone, and bronchodilator and follow-up with PCP. Time: 15:34 Medications Administered Discontinued Medications Generic Name Dose Route Start Last Admin Trade Name Freq PRN Reason Stop Dose Admin Acetaminophen 975 mg 04/24/25 14:42 04/24/25 14:54 Acetaminophen 325 Mg Tablet PO 04/24/25 14:43 975 mg ONCE ONE Administration Prednisone 50 mg 04/24/25 14:42 04/24/25 14:55 Prednisone 10 Mg Tablet PO 04/24/25 14:43 50 mg ONCE ONE Administration Medical Decision Making Differential Diagnosis Differential Diagnoses: The differential diagnosis associated with the presentation includes (Pneumonia, pneumothorax, pleural effusion, ACS, electrolyte derangement, severe anemia.) Admission/Observation Consideration of admission/observation: Escalation of care including admission/observation considered Lab Data MDM Lab Attestation statement: I reviewed the patient's lab results. 04/24/25 13:41 04/24/25 13:41 Labs: Lab Results 04/24/25 04/24/25 Range/Units 13:41 13:48 WBC 11.4 H (4.8-10.8) X10*3/uL RBC 4.70 (4.20-5.50) X10*6/uL Hgb 14.1 (12.0-16.0) g/dl Hct 41.2 (37.0-47.0) % MCV 87.7 (80.0-98.0) fL MCH 30.0 (27.0-33.0) pg MCHC 34.2 (31.0-35.0) g/dl RDW 13.3 (11.0-16.0) % Plt Count 237 (160-400) X10*3/uL MPV 10.1 (9.4-12.3) fL Immature Gran % (Auto) 0.4 (0.0-0.4) % Neut % (Auto) 77.9 H (45-73) % Lymph % (Auto) 14.4 L (20-40) % [place] % (Auto) 4.7 (2-11) % Eos % (Auto) 2.2 (0-4) % Baso % (Auto) 0.4 (0-2) % Lymph # (Auto) 1.6 (1.2-4.9) X10*3/uL [place] # (Auto) 0.5 (0.1-1.2) X10*3/uL Eos # (Auto) 0.3 (0.0-0.4) X10*3/uL Baso # (Auto) 0.1 (0.0-0.2) X10*3/uL Abs Immat Gran (auto) 0.05 H (0.00-0.03) X10*3/uL Absolute Neuts (auto) 8.9 H (2.0-8.3) x10*3/uL Absolute Nucleated RBC 0.000 (0.0-0.012) X10*3/uL Nucleated RBC % (auto) 0.0 (0.0-0.2) /100WBC VBG pH 7.48 H (7.32-7.43) VBG pCO2 33 mmHg VBG pO2 42 mmHg VBG HCO3 25 (22-26) mmol/L VBG O2 Saturation 72.0 % VBG Base Excess 2.1 mmol/L Sodium 139 (135-145) mmol/L Potassium 3.8 (3.3-5.1) mmol/L Chloride 107 (96-108) mmol/L Carbon Dioxide 23 (22-29) mmol/L Anion Gap 13 (12-20) BUN 11 (9-16) mg/dL Creatinine 0.82 (0.5-1.4) mg/dL Estim Creat Clear Calc 103.6 Estimated GFR > 60 Random Glucose 104 (60-115) mg/dL Calcium 9.4 (8.4-10.2) mg/dL Magnesium 1.9 (1.6-2.6) mg/dL Total Bilirubin 0.7 (0.0-1.0) mg/dL Direct Bilirubin 0.2 (0.0-0.5) mg/dL AST 22 (5-31) U/L ALT 19 (0-31) U/L Alkaline Phosphatase 90 (39-117) U/L Troponin I High Sens < 2.7 (<3.5-17.0) ng/L Total Protein 7.7 (6.5-8.0) g/dL Albumin 4.3 (3.5-5.0) g/dL COVID-19 ([facility]CH) Negative (Negative) COVID-19 Clin Com See Note Influenza Type A (CLAUDIA) Negative (Negative) Influenza Type B (CLAUDIA) Negative (Negative) Influenza A & B Note See Note Independent Interpretation I performed an independent interpretation of an: Plain X-Ray (Chest:Normal lung volumes. Bilateral interstitial thickening. No pneumothorax or pleural effusion. Heart size normal. Passive venous congestion. No midline shift or tracheal deviation. No acute fracture.) Radiology Impression Discussion of test interpretation with radiology: I have reviewed the radiologist's reading. Discharge Plan Discharge Clinical Impression: Acute bronchiolitis Patient Disposition: Home, Self-Care Instructions: Acute Bronchitis (ED) Prescriptions: New azithromycin [Zithromax Z-Pedrito] 250 mg tablet See Rx Instructions .ROUTE .COMPLEX Qty: 6 0RF Rx Instructions: For 250 mg dose pack: take 500 mg today (day 1), then 250 mg for 4 days (days 2-5) prednisone 20 mg tablet 20 mg PO BID Qty: 10 0RF albuterol sulfate 90 mcg/actuation aero powdr breath act w/sensor 2 inh inhalation Q4-6H PRN (Reason: shortness of breath or wheezing) Qty: 1 0RF No Action diphenhydramine HCl [Benadryl] 25 mg capsule 25 mg PO Q4H PRN (Reason: itching) Qty: 20 0RF hydrocortisone [Anti-Itch (HC)] 1 % cream 1 appl topical TID 5 Days Qty: 28.35 0RF acetaminophen 500 mg tablet 500 mg PO Q6H PRN (Reason: fever or pain) Qty: 20 0RF gabapentin 300 mg capsule 300 mg PO TID hydralazine 25 mg tablet 25 mg PO BID Referrals: Mariposa Molina PA [Primary Care Provider, Hospitalist] Print Language: Stateless
[2025-04-24 13:48] LABS: MANUAL DIFF FLAG NO
[2025-04-24 13:51] LABS: Hematocrit 41.2 % (37.0-47.0); Hemoglobin 14.1 g/dl (12.0-16.0); Imm Gran Abs Auto 0.05 X10*3/uL (0.00-0.03); Imm Gran Pct Auto 0.4 % (0.0-0.4); Lymphocytes Absolute Auto 1.6 X10*3/uL (1.2-4.9); Mean Corpuscular HGB Conc 34.2 g/dl (31.0-35.0); Mean Corpuscular Hemoglobin 30.0 pg (27.0-33.0); Mean Corpuscular Volume 87.7 fL (80.0-98.0); NRBC Abs Auto 0.000 X10*3/uL (0.0-0.012); NRBC Pct Auto 0.0 /100WBC (0.0-0.2); Platelet Count 237 X10*3/uL (160-400); Red Blood Count 4.70 X10*6/uL (4.20-5.50); White Blood Count 11.4 X10*3/uL (4.8-10.8)
[2025-04-24 13:52] LABS: VBG HCO3 25 mmol/L (22-26); VBG O2 % Saturation 72.0 %
[2025-04-24 13:57] LABS: Venous Blood Gas Refer to POC result
[2025-04-24 14:07] LABS: Alanine Aminotransferase 19 U/L (0-31); Albumin Level 4.3 g/dL (3.5-5.0); Alkaline Phosphatase 90 U/L (39-117); Anion Gap 13 (12-20); Aspartate Amino Transferase 22 U/L (5-31); Blood Urea Nitrogen 11 mg/dL (9-16); Calcium 9.4 mg/dL (8.4-10.2); Carbon Dioxide 23 mmol/L (22-29); Chloride 107 mmol/L (96-108); Creatinine Clr Calc Pharmacy 103.6; Estimated Glomerular Filt Rate > 60; Magnesium 1.9 mg/dL (1.6-2.6); Potassium 3.8 mmol/L (3.3-5.1); Sodium 139 mmol/L (135-145); Total Protein 7.7 g/dL (6.5-8.0)
[2025-04-24 14:08] LABS: COVID-19 Test Negative (Negative); IDNOW Serial# 55D5AD1C; IDNOW Serial# 58CA691E; Influenza B2 Negative (Negative)
--- OUTSIDE RECORDS SUMMARY | 2025-04-24 14:09 | XMS_ITS | Clinical Summary ---
Author Organization [facility] Address [address] [place] [phone] Phone Care Team Providers Care Transcription Manager Name Role Phone Darnell Garcia MD Primary Care Provider [phone] Allergies Active Allergy Reactions Criticality Noted Date [...] Panel) 07/03/2022 Colorectal Cancer Screening: Colonoscopy 07/03/2022 HIV Screening 07/03/2022 Hepatitis C Screening 07/03/2022 Social Influencers of Health Screening 07/03/2022 Depression Screening 08/05/2024 COVID-19 Vaccine (1 - 2023-2 5 season) 2025 Influenza Vaccine (#1) 2025 Hypertension/CHF/CAD Annual BMP Blood Test 09/12/2025 [...] AM EST [facility] Anion Gap 7 3 - 11 LAB CHEMISTRY METHOD 09/12/2024 7:55 AM [facility] Glucose 159(H) 70 - 100 mg/dL LAB CHEMISTRY METHOD 09/12/2024 7:55 AM [facility] BUN 21 5 - 25 mg/dL LAB CHEMISTRY METHOD 09/12/2024 7:55 AM [facility] Creatinine 0.76 0.50 - 1.10 mg/dL LAB CHEMISTRY METHOD 09/12/2024 7:55 AM [facility] eGFR 93 >=60 mL/min/1. 73m2 LAB CHEMISTRY METHOD 09/12/2024 7:55 AM [facility] Comment:Calculation based on the Chronic Kidney Disease Epidemiology Collaboration (CKD-EPI) equation refit without adjustment for race. BUN/Creatinine Ratio 27.6 LAB CHEMISTRY METHOD 09/12/2024 7:55 AM [facility] Calcium 8.8 8.5 - 10.5 mg/dL LAB CHEMISTRY METHOD 09/12/2024 7:55 AM [facility] Blood Venous blood specimen / Unknown Venipuncture / Unknown 09/12/2024 6:41 AM EST 09/12/2024 7:02 AM EST us Joseph Armstrong MD LAB BLOOD ORDERABLES Final Result [facility] [address] [place] [address], from Last 3 Months or Most Recently Relevant to Health Maintenance Insurance * Guarantor: Nancie Cuevas Account Type Relation to Patient Date of Phone Billing Address Personal/Family Self 1970 [address] [place] [address] MED[place] - [place] Advance Directives * Full [...] currently active code status orders. Care Teams Transcription Manager Relationship Specialty Start Date End Date Darnell Garcia MD [address] [place] [address] Dr Iam [place] PCP - General Internal Medicine 09/20/24
--- OUTSIDE RECORDS SUMMARY | 2025-04-24 14:09 | XMS_ITS | Clinical Summary ---
Author Organization [employer] Address [address] [place] [address] [address] [place] [address] Care Team Providers Care Inspector Firearms Name Role Phone Unavailable Primary Care Provider [...] Screening 1970 SDOH Screening 1970 Sigmoidoscopy 1970 Disability Screening 1970 Alcohol/Substance Use Screening 1980 Tobacco Screening [...] COVID-19 Vaccine ( - 2023-2 5 season) 2025 Influenza Vaccine (#1) 2025 RSV Patients and Pa tients Aged 60 [...] patient's age to complete this topic Insurance [facility]
--- OUTSIDE RECORDS SUMMARY | 2025-04-24 14:09 | XMS_ITS | Encounter Summary ---
Author Organization [facility] Address [address] [facility] [address] [place] [address] Care Team Providers Care Air Pumper Name Role Phone Unavailable Primary Care Provider Unavailabl e Encounter Details Date Type Department Care Team (Latest Contact Info) Description 05/05/2019 Abstract [facility] Dental, Provider, DDS Social History [...]
[2025-04-24 14:12] LABS: Troponin-I High Sensitivity < 2.7 ng/L (<3.5-17.0)
[2025-04-24 14:31] VITALS: PULSE 87; RESP 22; TEMP 37.1; O2SAT 96
[2025-04-24] MEDS: Albuterol Sulfate 5 MG, Albuterol/Iprat 2.5/0.5MG 3 ML 3 ML INHALE (15:51)
[2025-04-24 15:54] VITALS: PULSE 90; RESP 20; O2SAT 97
[2025-04-24 15:54] LABS: NT Pro B Type Natriuretic Pept 60.6 pg/mL (<300)
[2025-04-24 16:21] VITALS: BP 110/50; PULSE 103; RESP 18; TEMP 36.7; O2SAT 98
== END 2025-04-24 16:22 | disposition home or self-care (01) ==
PROVIDERS: Physician Assistant Medical; Emergency Provider Emergency Medicine; PCP Physician Assistant
DX: J20.9 Acute bronchitis, unspecified (principal); R06.02 Shortness of breath; R00.2 Palpitations; R51.9 Headache, unspecified; Z03.818 Encounter for observation for suspected exposure to other biological agents ruled out
CPT/HCPCS: 36415; 71046; 80048; 80076; 82803; 83735; 83880; 84484; 85025; 87502; 87635; 93005; 94640; 99284; 99285

== ENCOUNTER → 2025-04-24 13:23 | Outpatient (BNV) | payer OTHER, SELFPAY | PROVIDERS: Emergency Provider Emergency Medicine; PCP Physician Assistant; Visit Provider Internal Medicine | DX: R00.2 Palpitations (principal) | CPT/HCPCS: 93010 ==

== ENCOUNTER → 2025-04-24 13:32 | Outpatient (BNV) | payer OTHER, SELFPAY | PROVIDERS: Emergency Provider Emergency Medicine; PCP Physician Assistant; Visit Provider Radiology Diagnostic Radiology | DX: R06.02 Shortness of breath (principal) | CPT/HCPCS: 71046 ==

== ENCOUNTER 2025-05-03 16:19 | Outpatient (AMB) | payer OTHER, SELFPAY ==
--- NOTE | 2025-05-03 16:35 | MHC.PC.OV ---
Vital Signs 05/03/25 16:41 Height 5 ft 5 in Weight 129.274 kg BMI 47.4 BP 150/90 H Blood Pressure Location Lt brachial Position Sitting Pulse 86 Pulse Source Pulse Oximeter Temp 97.8 F Temp Source Temporal Artery Scan Pulse Oximetry (%) 97 Oxygen Delivery Method Room Air Intake Visit Reasons: IVA / Annual / Dr Garcia - see comments Review Consultant Required: No Accompanied by: Self / Same As Patient Allergies ibuprofen (From MOTRIN) Allergy (Unknown, Verified 05/03/25 16:43) UPSET STOMACH, stomach upset, stomach upset tramadol (TRAMADOL) Allergy (Unknown, Verified 05/03/25 16:43) UPSET STOMACH, nausea and vomiting Pt states no food allergies Allergy (Unknown, Uncoded 01/29/25 12:58) unknown Medication List - Last Reconciled 05/03/25 by SHABNAM Valderrama acetaminophen 500 mg PO Q6H PRN albuterol sulfate 90 mcg/actuation 2 inhalations inhalation Q4-6H PRN azithromycin (Zithromax Z-Pedrito) For 250 mg dose pack: take 500 mg today (day 1), then 250 mg for 4 days (days 2-5) diphenhydramine HCl (Benadryl) 25 mg PO Q4H PRN gabapentin 300 mg PO TID hydralazine 25 mg PO BID hydrocortisone 1% (Anti-Itch (hydrocortisone)) 1 appl topical TID 5 days lisinopril 20 mg PO DAILY metoprolol succinate ER 50 mg PO DAILY prednisone 20 mg PO BID Tobacco use date assessed: 05/03/25 Dental Screening Dental Screen Date: 05/03/25 Did you have a dental visit in the last 12 months?: No Did you have a dental problem in the last 6 months where you did not have access to dental care?: No HPI HPI Comments History of Present Illness Details 54-year-old female with history of sleep apnea, fibromyalgia, panic attacks, hypertension, osteoarthritis of the knees bilaterally presenting to the office today for management of chronic conditions and to establish care as well as for annual physical exam. Currently feels safe at home. No alcohol use. Denies illicit drug use or marijuana use. Smoked cigarettes for 1 year when she was 13, otherwise no cigarette use. Not following a healthy diet and not exercising. Osteoarthritis of the knees-following with orthopedics for cortisone injections Fibromyalgia/panic attacks-gabapentin, lorazepam PRN. PHQ-9 score 11, trinidad 7 score 10 Hypertension-uncontrolled. On lisinopril 20 mg daily and hydralazine 25 mg twice daily along with Toprol 50 mg daily Urge incontinence-historically had bladder sling performed by [facility] about 10 years ago. Looking for referral to return DAVID-has never been fitted for CPAP. Sleep study needs to be updated Concerns: Seen in the [facility] on 04/24 due to acute bronchiolitis. Given prescription for azithromycin, prednisone as well as albuterol but states she did not receive the albuterol inhaler. Still has productive cough but no wheezing or shortness of breath Health maintenance: Last mammogram 05/2024 with 1 year follow-up advised Last Pap smear 07/2022 with 5 year follow-up advised. Follows annually Due for colonoscopy-refuses Reviewed past medical, surgical, family, social history ROS: General: No fevers, malaise, unintentional weight loss HEENT: No blurred vision, diplopia. No sore throat, nasal congestion, rhinorrhea, sinus pain, ear pain. No hearing loss Neck - no adenopathy Cardiovascular: No chest pain, palpitations, or leg edema Respiratory: No shortness of breath, wheezing, cough Breast: No pain, palpable lumps, nipple inversion GI: No dysphagia, odynophagia, globus sensation. No abdominal pain, nausea, vomiting, diarrhea, constipation, melena, hematochezia : No dysuria, hematuria, increased urinary frequency, decreased urinary output. 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 No AH/VH. No SI/HI Skin: No rashes or lesions EXAM: Constitutional - Awake and Alert, No apparent distress Eyes - PERRLA, EOMI. Anicteric Ears - external ears normal, canals clear, TMs intact and pearly fernandez with good cone of light Nose- septum midline, nares clear, no sinus tenderness Mouth/throat- mucosa moist, tongue and uvula midline, no erythema/edema or tonsillar adenopathy. Neck-trachea midline, thyroid symmetric without palpable nodules, no adenopathy Cardiovascular - S1S2, RRR, No edema Respiratory - Normal lung expansion, Normal respiratory effort, No respiratory distress, CTA bilaterally Gastrointestinal - NT / ND; +BS; No rebound or guarding - No CVA tenderness Extremities - no calf tenderness bilaterally, no swelling Musculoskeletal - Normal inspection, normal ROM Skin - Warm/Dry, no concerning lesions Neurological - Alert & oriented x3, CN II-XII in tact, 5/5 strength BUE and BLE, 2+ patellar reflexes, sensation intact Psychological - Appropriate affect [facility] Medical History Panic attacks Seizure Sleep apnea Panic attack Carpal tunnel syndrome Osteoarthritis Fibromyalgia HTN (hypertension) Surgical History History of surgery History of bilateral carpal tunnel release Hx of section Hx of cholecystectomy Hx of tubal ligation Family History Mother HTN (hypertension) Sister Ovarian cancer Maternal Aunt Breast cancer Father No problems noted. Social History Household Members: Children Housing: Other Alcohol intake: current Alcohol intake frequency: holidays/special occasions only Comment: counts correct Patient Tobacco Use Status: Former Tobacco user e-Cigarette/Vaping Use: Never Used Advance Directives Date on File: 05/12/20 service: No Current occupational status: disabled Current occupation: rt hand Sexual orientation: Straight/Heterosexual Gender identity: Female Cognitive needs: No Hearing needs: No Vision needs: Yes (Rx glasses) Questionnaire PHQ-9 Over the last 2 weeks, how often have you been bothered by any of the following problems? 1. Little interest or pleasure in doing things: several days 2. Feeling down, depressed, or hopeless: several days 3. Trouble falling or staying asleep, or sleeping too much: nearly every day 4. Feeling tired or having little energy: nearly every day 5. Poor appetite or overeating: several days 6. Feeling bad about yourself - or that you are a failure or have let yourself or your family down: several days 7. Trouble concentrating on things, such as reading the newspaper or watching television: several days 8. Moving or speaking so slowly that other people could have noticed. Or the opposite - being so fidgety or restless that you have been moving around a lot more than usual: not at all 9. Thoughts that you would be better off or of hurting yourself in some way: not at all Total score: 11 Depression Screening Interpretation: Positive Depression Screening Done: Yes 87689 - PHQ-9 Billing: Yes Source: Developed by Drs. Jax Chase, Leny Avila, Scott Chavez and colleagues, with an educational roberto from [employer]. Thrive Questionnaire Date Thrive assessed: 05/03/25 I am a: Patient Within the past 12 months, did the food you bought not last and you didn't have the money to get more?: Never true Within the past 12 months, did you worry whether your food would run out before you got money to buy more?: Never true Do you have trouble paying for medicines?: No Do you have trouble getting transportation to medical appointments?: No Do you have trouble paying your heating and electricity bill?: No Do you have trouble taking care of your child, family member or friend?: No Do you have trouble with day-to-day activities such as bathing, preparing meals, shopping, managing finances, etc.?: No Are you currently unemployed and looking for a job?: No Are you interested in more education?: No THRIVE Score: 0 AUDIT C Alcohol Use Questionnaire (AUDIT-C) 1. How often do you have a drink containing alcohol?: Never 3. How often do you have six or more drinks on one occasion?: Never Total Score: 0 TRINIDAD-7 AMB Questionnaire TRINIDAD-7 Date TRINIDAD - 7 assessed: 05/03/25 Feeling nervous, anxious, or on edge: 1 = Several days Not being able to stop or control worryin = More than half the days Worrying too much about different things: 3 = Nearly every day Trouble relaxin = More than half the days Being so restless that it is hard to sit still: 1 = Several days Becoming easily annoyed or irritable: 0 = Not at all Feeling afraid as if something awful might happen: 1 = Several days Total TRINIDAD-7 score (0-4 normal; 5-9 mild; 10-14 moderate; 15-21 severe): 10 Source: Developed by Drs. Jax L. SalvatoreLeny murillo, Scott Chavez and colleagues, with an educational roberto from [employer]. TRINIDAD-7 Assessment Billing TRINIDAD-7 Assessment Tool: TRINIDAD-7 Assessment 50239 Physical exam (Primary Care) Vital Signs: Last Vital Signs Temp 97.8 F 05/03/25 16:41 Pulse 86 05/03/25 16:41 BP 150/90 H 05/03/25 16:41 Pulse Ox 97 05/03/25 16:41 Oxygen Delivery Method Room Air 05/03/25 16:41 BMI result Body Mass Index 47.4 Tobacco/Smoking Status: Tobacco use Status Tobacco use date assessed 05/03/25 05/03/25 16:56 Patient Tobacco Use Status Former Tobacco user 05/03/25 16:39 e-Cigarette/Vaping Use Never Used 05/03/25 16:56 PHQ-9: PHQ-9 Score PHQ-9: Total score 11 05/03/25 16:56 Depression Screening Interpretation: Positive Thrive Assessment: Date of Thrive Assessment Date Thrive assessed 05/03/25 05/03/25 16:56 Coding Level of Care Code Est Pt Level 4 (70292) Est Pt Prev Care 40-64y(85274) Diagnoses Routine medical exam Z00.00 Panic attack F41.0 Sleep apnea G47.30 Urge incontinence N39.41 HTN (hypertension) I10 Additional Codes PHQ-9 - 42186 - PHQ-9 Billing: Yes ([id number]) TRINIDAD-7 Assessment Billing - TRINIDAD-7 Assessment Tool: TRINIDAD-7 Assessment 72911 ([id number]) Assessment & Plan Assessment & Plan (1) Routine medical exam: Code(s): Z00.00 - Encounter for general adult medical examination without abnormal findings Category: Medical Plan: 54-year-old female presenting for annual exam. Plan as below (2) Panic attack: Code(s): F41.0 - Panic disorder [episodic paroxysmal anxiety] Category: Medical Plan: Given lorazepam as needed. Positive coping mechanisms (3) Sleep apnea: Code(s): G47.30 - Sleep apnea, unspecified Category: Medical Plan: Referred for sleep study (4) Urge incontinence: Code(s): N39.41 - Urge incontinence Category: Medical Plan: Referred back to [facility] (5) HTN (hypertension): Code(s): I10 - Essential (primary) hypertension Category: Medical Plan: Uncontrolled. Increase lisinopril to 40 mg daily. Can continue hydralazine 25 mg twice daily and Toprol 50 mg daily. Plan Routine screening labs as ordered below Continue with screening mammograms, Pap smears, colonoscopies Continue following for annual skin exams and use sun protection Annual eye exams Wear seat belt in car Recommend regular exercise and healthy diet Referred for sleep study Follow-up in the office in 2 weeks Orders: Orders RT home sleep study Today G47.30 - Sleep apnea, unspecified Basic Metabolic Panel Today F41.0 - Panic disorder [episodic paroxysmal anxiety], G47.30 - Sleep apnea, unspecified, N39.41 - Urge incontinence, Z00.00 - Encounter for general adult medical examination without abnormal findings Lipid Panel Today F41.0 - Panic disorder [episodic paroxysmal anxiety], G47.30 - Sleep apnea, unspecified, N39.41 - Urge incontinence, Z00.00 - Encounter for general adult medical examination without abnormal findings Liver Panel Today F41.0 - Panic disorder [episodic paroxysmal anxiety], G47.30 - Sleep apnea, unspecified, N39.41 - Urge incontinence, Z00.00 - Encounter for general adult medical examination without abnormal findings TSH reflex Free T4 Today F41.0 - Panic disorder [episodic paroxysmal anxiety], G47.30 - Sleep apnea, unspecified, N39.41 - Urge incontinence, Z00.00 - Encounter for general adult medical examination without abnormal findings Referrals Urogynecology Referral N39.41 - Urge incontinence Medications: New lorazepam 0.5 mg PO DAILY PRN 30 tabs 0RF anxiety lisinopril 40 mg PO DAILY 90 tabs 1RF Refilled albuterol sulfate 90 mcg/actuation 2 inhalations inhalation Q4-6H PRN 1 ea 0RF shortness of breath or wheezing
[2025-05-03 16:41] VITALS: BP 150/90; PULSE 86; TEMP 36.6; O2SAT 97; BMI 47.4
--- OUTSIDE RECORDS SUMMARY | 2025-05-03 18:18 | XMS_ITS | Clinical Summary ---
Author Organization [employer] Address [address] [place] [address] [address] [place] [address] Care Team Providers Care Supply Requirements Officer Name Role Phone Unavailable Primary Care Provider [...] patient's age to complete this topic Insurance [facility]
--- OUTSIDE RECORDS SUMMARY | 2025-05-03 18:18 | XMS_ITS | Clinical Summary ---
Author Organization [facility] Address [address] [place] [phone] Phone Care Team Providers Care Acid Blower Name Role Phone Darnell Garcia MD Primary Care Provider [phone] Allergies Active Allergy Reactions Criticality Noted Date [...] Safety Answer Date Record ed Physical Abuse Unrecognized value 09/12/2024 Verbal Abuse Unrecognized value 09/12/2024 Comments Unknown Sex and Gender Information [...] LAB CHEMISTRY METHOD 09/12/2024 7:55 AM EST [facility] Potassium 4.1 3.5 - 5.5 mmol/L LAB CHEMISTRY METHOD 09/12/2024 7:55 AM EST [facility] Chloride 103 96 - 110 mmol/L LAB CHEMISTRY METHOD 09/12/2024 7:55 AM EST [facility] CO2 24 21 - 32 mmol/L LAB CHEMISTRY METHOD 09/12/2024 7:55 AM EST [facility] Anion Gap 7 3 - 11 LAB CHEMISTRY METHOD 09/12/2024 7:[address] [facility] Glucose 159(H) 70 - 100 mg/dL LAB CHEMISTRY METHOD 09/12/2024 7:[address] [facility] BUN 21 5 - 25 mg/dL LAB CHEMISTRY METHOD 09/12/2024 7:[address] [facility] Creatinine 0.76 0.50 - 1.10 mg/dL LAB CHEMISTRY METHOD 09/12/2024 7:[address] [facility] eGFR 93 >=60 mL/min/1. 73m2 LAB CHEMISTRY METHOD 09/12/2024 7:[address] [facility] Comment:Calculation based on the Chronic Kidney Disease Epidemiology Collaboration (CKD-EPI) equation refit without adjustment for race. BUN/Creatinine Ratio 27.6 LAB CHEMISTRY METHOD 09/12/2024 7:[address] [facility] Calcium 8.8 8.5 - 10.5 mg/dL LAB CHEMISTRY METHOD 09/12/2024 7:[address] [facility] Blood Venous blood specimen / Unknown Venipuncture / Unknown 09/12/2024 6:41 AM EST 09/12/2024 7:02 AM EST us Joseph Armstrong MD LAB BLOOD ORDERABLES Final Result [facility] [address] [place] [address], from Last 3 Months or Most Recently Relevant to Health Maintenance Insurance * Guarantor: Nancie Cuevas Account Type Relation to Patient Date of Phone Billing Address Personal/Family Self 1970 [address] [place] [address] MEDICAID - [place] Advance Directives * Full [...] currently active code status orders. Care Teams Acid Blower Relationship Specialty Start Date End Date Darnell Garcia MD [address] [place] [address] Dr Iam [place] PCP - General Internal Medicine 09/20/24
--- OUTSIDE RECORDS SUMMARY | 2025-05-03 18:18 | XMS_ITS | Encounter Summary ---
Author Organization [employer] Address [address] [facility] [address] [place] [address] Care Team Providers Care Airline Attendant Name Role Phone Unavailable Primary Care Provider Unavailabl e Encounter Details Date Type Department Care Team (Latest Contact Info) Description 05/05/2019 Abstract [facility] CONVERSIONS Dental, Provider, DDS Social History Tobacco [...]
== END 2025-05-03 17:16 | disposition home or self-care (01) ==
LOC: HO.HMCHD 16:19
PROVIDERS: PCP Physician Assistant; Visit Provider Physician Assistant
DX: Z00.00 Encounter for general adult medical examination without abnormal findings (principal); F41.0 Panic disorder [episodic paroxysmal anxiety]; G47.30 Sleep apnea, unspecified; N39.41 Urge incontinence; I10 Essential (primary) hypertension

== ENCOUNTER → 2025-05-03 16:19 | Outpatient (BNVA) | payer OTHER, SELFPAY | PROVIDERS: PCP Physician Assistant; Visit Provider Physician Assistant | DX: Z00.01 Encounter for general adult medical examination with abnormal findings (principal); F41.0 Panic disorder [episodic paroxysmal anxiety]; G47.30 Sleep apnea, unspecified; N39.41 Urge incontinence; I10 Essential (primary) hypertension; Z79.899 Other long term (current) drug therapy; Z13.31 Encounter for screening for depression; Z13.39 Encounter for screening examination for other mental health and behavioral disorders | CPT/HCPCS: 96127; 99212; 99396 ==

== ENCOUNTER 2025-05-04 13:16 | Outpatient (AMB) | payer OTHER, SELFPAY ==
--- NOTE | 2025-05-04 13:24 | A.OFFVIS_ITS ---
Intake Visit Reasons: B/L knee injections, last injection 01/29/25 Intake Note: Nancie is a 54 year old female who presents today for a repeat bilateral knee injections, last injection 01/29/25. Patient reports her last injections - . Allergies ibuprofen (From MOTRIN) Allergy (Unknown, Verified 05/03/25 16:43) UPSET STOMACH, stomach upset, stomach upset tramadol (TRAMADOL) Allergy (Unknown, Verified 05/03/25 16:43) UPSET STOMACH, nausea and vomiting Pt states no food allergies Allergy (Unknown, Uncoded 01/29/25 12:58) unknown HPI HPI B/L knee injections, last injection 01/29/25: Details: Ms. Cuevas is a 54-year-old female who presents to the office today for chronic bilateral knee pain. Her last cortisone injections were performed on 01/29/2025. Patient states that she would like to repeat injections while in the office today. [facility] Medical History Panic attacks Seizure Sleep apnea Panic attack Carpal tunnel syndrome Osteoarthritis Fibromyalgia HTN (hypertension) Surgical History History of surgery History of bilateral carpal tunnel release Hx of section Hx of cholecystectomy Hx of tubal ligation Family History Mother HTN (hypertension) Sister Ovarian cancer Maternal Aunt Breast cancer Father No problems noted. Social History Household Members: Children Housing: Other Alcohol intake: current Alcohol intake frequency: holidays/special occasions only Comment: counts correct Patient Tobacco Use Status: Former Tobacco user e-Cigarette/Vaping Use: Never Used Advance Directives Date on File: 05/12/20 service: No Current occupational status: disabled Current occupation: rt hand Sexual orientation: Straight/Heterosexual Gender identity: Female Cognitive needs: No Hearing needs: No Vision needs: Yes (Rx glasses) Review of Systems Const All systems reviewed & are unremarkable except as noted in HPI and below Physical Exam Const General: cooperative, healthy appearing and no acute distress Resp Effort & Inspection: normal respiratory effort and able to speak in complete sentences Extrem Other: Bilateral knees: Normal to inspection. No ecchymosis, erythema, or joint effusion. Full ROM bilaterally. No tenderness at the medial and lateral joint lines. Negative Radha's. NVI. Office Procedures AMB Joint Injection/Aspiration Joint Injection/Aspiration Primary Site: right knee Secondary Site: left knee Prep: site was prepped using aseptic technique, ethochloride spray was applied and injection warnings given Injected: 40 mg of, with 3 mL of, 1% plain lidocaine, 0.25% bupivacaine, in the joint and decadron Approach Used: anterolateral Procedure: The patient tolerated the procedure well, but had some pain with the injection and there was some relief with the local anesthesia Coding - Bilateral Large Joint Procedure code (CPT) selection complete Assessment & Plan Assessment & Plan (1) Bilateral primary osteoarthritis of knee: Code(s): M17.0 - Bilateral primary osteoarthritis of knee Category: Medical Plan The patient was offered cortisone injections in bilateral knees. The patient was explained the risks, benefits, and alternatives to receiving this injection. After receiving consent for the injection, the patient had the procedure done while in the office today. The patient tolerated the procedure well with no complications. Follow-up will be PRN, or sooner if needed Coding Level of Care Code Est Pt Level 3 (59134) Diagnoses Bilateral primary osteoarthritis of knee M17.0 CPT Codes Coding - - Bilateral Large Joint: 98348 - Bilateral Large Joint ([id number])
--- OUTSIDE RECORDS SUMMARY | 2025-05-04 14:34 | XMS_ITS | Clinical Summary ---
Author Organization [facility] Address [address] [place] [phone] Phone Care Team Providers Care Pipe Smoking Machine Offbearer Name Role Phone Darnell Garcia MD Primary Care Provider [phone] Allergies Active Allergy Reactions Criticality Noted Date [...] Last Done Comments Breast Cancer Screening 1970 Colorectal Cancer Screening: Colonoscopy 1970 DTaP,Tdap,and Td Vaccines (1 - Tdap) 12/07/1987 Hepatitis A Vaccines (1 of 2 - Risk 2-dose series) 12/07/1987 Hepatitis B Vaccines (1 of 3 - 19+ 3-dose series) 12/07/1987 Cervical Cancer Screening: P ap Smear 1989 Pneumococcal Vaccine: 50+ Years (1 of 1 - PCV) 2018 Zoster Vaccines (1 of 2) 2018 Cholesterol Screening (Lipid Panel) 07/03/2022 HIV Screening 07/03/2022 Hepatitis C Screening 07/03/2022 Social Influencers of Health Screening 07/03/2022 Depression Screening 08/05/2024 COVID-19 Vaccine (1 - 2023-2 5 season) 2025 Influenza Vaccine (#1) 2025 Hypertension/CHF/CAD Annual BMP Blood Test 09/12/2025 09/12/2024, 09/11/2024 RSV Immunization Adult Patients (1 - 1-dose 75+ series) 12/07/2043 HIB [...] LAB CHEMISTRY METHOD 09/12/2024 7:55 AM EST [facility] Potassium 4.1 3.5 - 5.5 mmol/L LAB CHEMISTRY METHOD 09/12/2024 7:55 AM EST [facility] Chloride 103 96 - 110 mmol/L LAB CHEMISTRY METHOD 09/12/2024 7:55 AM EST [facility] CO2 24 21 - 32 mmol/L LAB CHEMISTRY METHOD 09/12/2024 7:55 AM [facility] Anion Gap 7 3 - 11 LAB CHEMISTRY METHOD 09/12/2024 7:55 AM [facility] Glucose 159(H) 70 - 100 mg/dL LAB CHEMISTRY METHOD 09/12/2024 7:55 AM [facility] BUN 21 5 - 25 mg/dL LAB CHEMISTRY METHOD 09/12/2024 7:55 AM [facility] Creatinine 0.76 0.50 - 1.10 mg/dL LAB CHEMISTRY METHOD 09/12/2024 7:55 AM [facility] eGFR 93 >=60 mL/min/1. 73m2 LAB CHEMISTRY METHOD 09/12/2024 7:55 AM [facility] Comment:Calculation based on the Chronic Kidney Disease Epidemiology Collaboration (CKD-EPI) equation refit without adjustment for race. BUN/Creatinine Ratio 27.6 LAB CHEMISTRY METHOD 09/12/2024 7:55 AM [facility] Calcium 8.8 8.5 - 10.5 mg/dL LAB CHEMISTRY METHOD 09/12/2024 7:55 AM [facility] Blood Venous blood specimen / Unknown Venipuncture / Unknown 09/12/2024 6:41 AM EST 09/12/2024 7:02 AM EST us Joseph Armstrong MD LAB BLOOD ORDERABLES Final Result [facility] [address] [place] [address], [place] [phone] from Last 3 Months or Most Recently Relevant to Health Maintenance Insurance * Guarantor: Nancie Cuevas Account Type Relation to Patient Date of Phone Billing Address Personal/Family Self [address] [place] [address] MEDICA[place] - [place] Advance Directives * Full [...] currently active code status orders. Care Teams Pipe Smoking Machine Offbearer Relationship Specialty Start Date End Date Darnell Garcia MD [address] [place] [address] Dr Iam [place] PCP - General Internal Medicine 09/20/24
--- OUTSIDE RECORDS SUMMARY | 2025-05-04 14:34 | XMS_ITS | Encounter Summary ---
Author Organization [employer] Address [address] [facility] [address] [place] [address] Care Team Providers Care Small Boat Engineer Name Role Phone Unavailable Primary Care Provider Unavailabl e Encounter Details Date Type Department Care Team (Latest Contact Info) Description 05/05/2019 Abstract [facility] CONVERSIONS Dental, Provider, DDS Social History [...]
--- OUTSIDE RECORDS SUMMARY | 2025-05-04 14:34 | XMS_ITS | Clinical Summary ---
Author Organization [employer] Address [address] [place] [address] [address] [place] [address] Care Team Providers Care Senior Quality Technician Name Role Phone Unavailable Primary Care [...] patient's age to complete this topic Insurance [facility]
== END 2025-05-04 13:37 | disposition home or self-care (01) ==
LOC: HO.HOS 13:16
PROVIDERS: PCP Internal Medicine; Visit Provider Physician Assistant
DX: M17.0 Bilateral primary osteoarthritis of knee (principal)
CPT/HCPCS: 20610

== ENCOUNTER → 2025-05-04 13:16 | Outpatient (BNVA) | payer OTHER, SELFPAY | PROVIDERS: PCP Internal Medicine; Visit Provider Physician Assistant | DX: M17.0 Bilateral primary osteoarthritis of knee (principal) | CPT/HCPCS: 20610; J0665; J1100; J2003 ==

== ENCOUNTER 2025-07-09 08:37 | Emergency (ER) | payer OTHER, SELFPAY ==
--- NOTE | ~2025-07-09 | CT_ITS ---
EXAMINATION: CT HEAD WITHOUT IV CONTRAST HISTORY: fall had trauma. TECHNIQUE: Unenhanced helical CT of the head was performed per standard departmental protocol. Coronal and sagittal reformats of the head were also evaluated. One or more of the following techniques was used for dose reduction: Automated exposure control, adjustment of the mA and/or kV according to patient size, use of iterative reconstruction technique. DLP: 842 mGy-cm COMPARISON: Comparison is made with the prior examination dated 03/09/2019. FINDINGS: BRAIN: There are scattered periventricular and subcortical white matter hypodensities which are nonspecific but often seen in the setting of small vessel ischemic disease. Crum/white differentiation is otherwise normal. There is no mass effect or midline shift. The ventricular system is normal in size and configuration. No intra- or extra-axial fluid collections are identified. SINUSES: The visualized paranasal sinuses are clear. The mastoid air cells and middle ear cavities are well pneumatized. ORBITS: The visualized orbits are unremarkable. BONES/SOFT TISSUES: The extracranial soft tissues are unremarkable. The calvarium is intact. No suspicious lytic or sclerotic lesions. CT/CT head/brain wo IV con IMPRESSION: No acute intracranial abnormality. Electronically signed by: Jax Montilla MD 07/09/2025 10:09 AM [facility]
--- NOTE | ~2025-07-09 | CT_ITS ---
EXAMINATION: CT CERVICAL SPINE WITHOUT CONTRAST CLINICAL INFORMATION: Status post fall. Neck pain. COMPARISON: March 09, 2019 TECHNIQUE: Contiguous axial images through the cervical spine using 3 mm collimation with bone and soft tissue algorithm. Sagittal and coronal reformatted images acquired. This CT examination was performed using dose optimization techniques as appropriate, variously including the following: *Automated exposure control *Adjustment of mA and/or kV according to patient size (this includes techniques or standardized protocols for targeted exams where dose is matched to indication/reason for exam; i.e. extremities or head) *Use of iterative reconstruction technique. DLP: 888 mGy-cm FINDINGS: Craniocervical junction is intact with normal alignment between the occipital condyles and lateral masses of C1. Generative changes in the periodontal C1 region.. Marginal osteophyte formation and endplate irregularity, decreased intervertebral disc height and endplate sclerosis at C4-5, C5-6 and C6-7 and to a lesser extent C7-T1. Reverse curvature apex at C4-5. No gross malalignment between the vertebral bodies or the facet joints. C1 demonstrates incomplete fusion of the posterior arch. No acute cortical disruption. C2 is intact. C3 is intact. C4 is intact. C5 is intact. C6 is intact. C7 is intact. No prevertebral compartment hematoma. Retropharyngeal trajectory of carotid arteries. Tympanic cavities and mastoid air cells are aerated. Normal position of the cerebellar tonsils. CT/CT cervical spine wo IV con IMPRESSION: Multilevel cervical spondylosis without acute fracture or trauma-related listhesis. Fleischner guidelines were followed. EXAMINATION: CT ABDOMEN AND PELVIS WITH CONTRAST CLINICAL INFORMATION: Status post fall. Severe LLQ pain into back. COMPARISON: None available. TECHNIQUE: Multidetector volumetric images were obtained from the superior aspect of the liver through the pubic symphysis following administration 85 mL of Omnipaque 350 intravenous contrast. Sagittal and coronal reformatted images were obtained on the technologist's workstation. Oral contrast: No This CT examination was performed using dose optimization techniques as appropriate, variously including the following: *Automated exposure control *Adjustment of mA and/or kV according to patient size (this includes techniques or standardized protocols for targeted exams where dose is matched to indication/reason for exam; i.e. extremities or head) *Use of iterative reconstruction technique DLP: 1709.32 mGy-cm FINDINGS: LUNG BASES: No gross lung contusion or acute airspace disease. Septated pneumatocele, right lung base. 4 mm subpleural nodule, left lower hemithorax. LIVER, GALLBLADDER, AND BILIARY TREE: [Liver measures 19 cm. No perihepatic fluid. No solid or cystic lesion. Main portal veins and hepatic veins are patent. Status post cholecystectomy. No intrahepatic or extrahepatic biliary ductal dilatation. PANCREAS: Intact. No peripancreatic fluid collection. No solid or cystic lesion. No main pancreatic ductal dilatation. SPLEEN: Intact. 10 cm. No solid or cystic lesion. ADRENAL GLANDS: Soft tissue fullness, both adrenal glands measuring 40 Hounsfield units. KIDNEYS AND URETERS: Intact. No hydronephrosis. No gross nephrolithiasis. 6 cm cystic lesion, parapelvic left kidney. No enhancing mass. No dilatation of the ureters. No fluid collections or blood products in the retroperitoneum/pararenal compartment. BLADDER: Fluid-filled nearly collapsed. No perivesical fluid collections. GASTROINTESTINAL TRACT: Abundant stool. No intestinal obstruction pattern. Scattered diverticula in the left hemicolon. There is pericolonic edema pattern in the sigmoid colon with circumferential intestinal wall thickening/edema involving the descending colon and proximal to mid sigmoid colon. No pneumoperitoneum. No peripheral enhancing fluid collection peritoneal cavity. No ascites. No pneumatosis intestinalis. Appendix is normal with inspissated secretions. The cecum is just beneath the liver. ABDOMINAL WALL: Diastases abdominal rectus muscles in the periumbilical region and small fat-containing umbilical hernia. LYMPH NODES: No gross mesenteric or retroperitoneal lymphadenopathy. VASCULAR: No aneurysm or dissection, abdominal aorta. Calcified plaques in the coronary arteries. PELVIC VISCERA: No gross masses. OSSEOUS STRUCTURES: Multilevel thoracolumbar spondylosis pronounced at L1 to and L5-S1 levels resulting in grade 1 anterolisthesis L4-5 and bilateral neuroforamina stenosis at L4-5 and L5-S1 level. Sclerosis and vacuum phenomenon at the sacroiliac joints. No acute fracture or dislocation in either hip. No acute fracture in the bony pelvis. Degenerative changes in the symphysis pubis. No acute fracture or trauma-related listhesis in the axial skeleton. IMPRESSION: Acute noncomplicated diverticulitis, descending colon/proximal sigmoid colon. No intra-abdominal pelvic solid organ injury or acute fracture. Fleischner guidelines were followed. Electronically signed by: Alex Mina MD 07/09/2025 10:22 AM [facility]
--- NOTE | ~2025-07-09 | CT_ITS ---
EXAMINATION: CT CHEST WITH CONTRAST CLINICAL INFORMATION: fall chest trauma COMPARISON: None available. TECHNIQUE: Multidetector volumetric CT imaging of the chest was obtained after the administration of 50 mL of Omnipaque 350 intravenous contrast without immediate adverse reactions. Axial MIP volume rendering provided. Sagittal and coronal reformatted images were obtained. This CT examination was performed using dose optimization techniques as appropriate, variously including the following: *Automated exposure control *Adjustment of mA and/or kV according to patient size (this includes techniques or standardized protocols for targeted exams where dose is matched to indication/reason for exam; i.e. extremities or head) *Use of iterative reconstruction technique FINDINGS: LUNGS: Mild streaky densities in the lungs in the lower half of the chest is probably related to subsegmental atelectasis. The lungs are clear otherwise. There is a 3 x 5 mm pulmonary nodule in the posterior base of the left lower lobe (axial 117/158) MEDIASTINUM: There is a mixed soft tissue and fat density nodule in the anterior superior mediastinum, anterior to the ascending aortic arch, measuring 13 x 14 mm. PLEURA: There is no pleural effusion. No pleural mass or thickening. AXILLA: No lymphadenopathy. UPPER ABDOMEN: See same day CT abdomen - pelvis OSSEOUS STRUCTURES: Moderate degenerative changes are present shoulder joint with marginal osteophytes. There is large accessory ossification at the superior glenoid on the right. There is a large ossification anterior to the superior right humeral head, possibly an intra-articular osteochondral fragment.. Mild degenerative changes are present throughout the thoracic spine. No fractures are identified. CT/CT chest w IV con IMPRESSION: Suspected subsegmental atelectasis in the lungs in the lower half of the chest, mild changes from pneumonia or less likely. There is a 3 x 5 mm solid nodule in the posterior base of the left lower lobe. No further follow-up is indicated per Fleischner Society recommendations, unless the patient falls into a high risk category, in which case a 12 month follow-up CT chest without contrast is optional. High risk patients includes those with a history of smoking, first-degree relative with lung cancer, or exposure to uranium, radon, or asbestos. 13 mm mixed soft tissue and fatty density in the anterosuperior mediastinum could represent a thymolipoma or less likely a thymoma. Fleischner guidelines were followed. Electronically signed by: Mode Cardona MD 07/09/2025 10:17 AM [facility]
--- NOTE | ~2025-07-09 | XR_ITS ---
CLINICAL HISTORY: Left hip pain 4 view, pelvis and left hip Comparison: None provided Findings: The bones are intact. Mild degenerative changes of the left hip. The soft tissues are unremarkable. IMPRESSION: No acute fracture. This document has been electronically signed by: Kellen Nelson MD on 07/09/2025 18:03:35
--- NOTE | 2025-07-09 08:43 | ECG_ITS ---
Test Reason : fall Blood Pressure : */* mmHG Vent. Rate : 71 BPM Atrial Rate : 71 BPM P-R Int : 172 ms QRS Dur : 72 ms QT Int : 388 ms P-R-T Axes : 67 37 80 degrees QTcB Int : 421 ms Normal sinus rhythm Nonspecific T wave abnormality Abnormal ECG When compared with ECG of 24-Apr-2025 13:23, No significant changes seen Referred By: Digna Vega Electronically Signed By: KARLO HEARN
[2025-07-09 08:51] VITALS: BP 145/75; BP 155/100; PULSE 98; RESP 25; O2SAT 98; O2SAT 99; BMI 54.7
--- NOTE | 2025-07-09 08:51 | ED_ITS ---
HPI - General Adult General Chief complaint: Fall Stated complaint: L abd pain rad back s/p fall, no loc/thinners Time Seen by Provider: 07/09/25 08:43 Source: patient and EMS Mode of arrival: EMS Limitations: no limitations History of Present Illness ED Provider: SHABNAM eVga HPI narrative: Chief Complaint: ?Severe left-sided flank and abdominal pain after falling down stairs.? History of Present Illness: 54-year-old female who slipped and fell down an unknown number of stairs earlier today, striking her low back and left flank/abdominal region on the steps. She reports immediate onset of severe left-sided flank pain rated 10/10, with associated abdominal pain that is so intense it distracts her from noting any other injuries. She is unsure if she briefly lost consciousness but acknowledges striking her head. She denies use of anticoagulants. No known allergy to morphine (patient clarified). Past medical history includes hypertension, hyperlipidemia, obesity, obstructive sleep apnea, fibromyalgia, panic attacks, and anxiety. She thinks the fall may have occurred because her ?knees gave out.? She is requesting pain control and is currently yelling/screaming in pain during examination. Initial management in the ED includes IV fentanyl 50 ?g, ondansetron, and diazepam. Due to mechanism and severity, trauma protocol CT head, chest, abdomen, and pelvis with contrast has been ordered prior to labs. Basic labs, troponin, and an EKG are also ordered to evaluate for anemia and cardiac involvement. Related Data Home Medications ?Medication ?Instructions ?Recorded ?Confirmed gabapentin 300 mg capsule 300 mg PO TID 07/12/2205/03 hydralazine 25 mg tablet 25 mg PO BID 08/14/23 metoprolol succinate 50 mg 50 mg PO DAILY 05/03/25 tablet,extended release 24 hr Previous Rx's ?Medication ?Instructions ?Recorded diphenhydramine HCl 25 mg capsule 25 mg PO Q4H PRN itc sonia #20 caps 10/30/22 (Benadryl) hydrocortisone 1 % topical cream 1 appl topical TID 5 days #28.35 10/30/22 (Anti-Itch (hydrocortisone)) grams acetaminophen 500 mg tablet 500 mg PO Q6H PRN fever or pain 07/17/23 #20 tabs azithromycin 250 mg tablet See Rx Instructions PO .COM PLEX #6 04/24/25 (Zithromax Z-Pedrito) tabs prednisone 20 mg tablet 20 mg PO BID #10 tabs lisinopril 40 mg tablet 40 mg PO DAILY #90 tabs 04/06 04/29 lorazepam 0.5 mg tablet 0.5 mg PO DAILY PRN anxiety #30 05/03/25 tabs albuterol sulfate 90 mcg/actuation 2 puff inhalation Q 4-6H PRN 05/05/25 aerosol inhaler (Ventolin HFA) shortness of breath or wheezing #8.5 grams acetaminophen 500 mg tablet 500 mg PO Q6H PRN pain #30 tabs 07/09/25 (Tylenol Extra Strength) amoxicillin 875 mg-potassium 1 tab PO BID 7 days #14 t abs 07/09/25 clavulanate 125 mg tablet cyclobenzaprine 10 mg tablet 10 mg PO BEDTIME PRN musc le spasm 07/09/25 #5 tabs Allergies Allergy/AdvReac Type Severity Reaction Status Date / Time ibuprofen (From MOTRIN) Allergy Unknown UPSET Verified 07/09/25 09:00 STOMACH, stomach upset, stomach upset tramadol (TRAMADOL) Allergy Unknown UPSET Verified 07/09/25 09:00 STOMACH, nausea and vomiting Pt states no food allergies Allergy Unknown unknown Uncoded 07/09/25 09:00 Review of Systems 2 Review of Systems: ? General: Reports severe pain; not on anticoagulant therapy. ? HEENT: Hit head during fall; unsure of loss of consciousness. ? Respiratory: Reports pain with deep breathing. ? Gastrointestinal: Left-sided abdominal pain. ? Musculoskeletal: Severe left flank/low back pain; denies awareness of other injuries due to distracting pain. ? Neurologic: Unsure of LOC; alert and oriented now. Yes all other systems are reviewed and are negative PMFSH Past Medical History Attestation statement: The following information was validated with the patient. Source: old records reviewed and nursing notes reviewed Medical History Panic attacks Seizure Sleep apnea Panic attack Carpal tunnel syndrome Osteoarthritis Fibromyalgia HTN (hypertension) Surgical History History of surgery History of bilateral carpal tunnel release Hx of section Hx of cholecystectomy Hx of tubal ligation Family History Family History Mother HTN (hypertension) Sister Ovarian cancer Maternal Aunt Breast cancer Father No problems noted. Social History Social History Household Members: Children Housing: Other Alcohol intake: current Alcohol intake frequency: holidays/special occasions only Comment: counts correct Patient Tobacco Use Status: Former Tobacco user e-Cigarette/Vaping Use: Never Used Advance Directives: No Advance Directives Information Provided: Yes Advance Directives Date on File: 05/12/20 Do you have a plan to hurt others: No Plan service: No Current occupational status: disabled Current occupation: rt hand Sexual orientation: Straight/Heterosexual Gender identity: Female Cognitive needs: No Hearing needs: No Vision needs: Yes (Rx glasses) Physical Exam ED Exam Exam: ? General: Patient visibly uncomfortable, yelling in pain. ? HEENT: Alert and oriented ?4; cranial nerves II?XII grossly intact. ? Cardiovascular: Regular rate and rhythm; tachycardic (attributed to pain). ? Respiratory: Lungs clear to auscultation bilaterally; pain with deep inspiration. ? Abdomen: Significant discomfort with palpation of left upper and lower quadrant and left flank region; no exam of rebound/guarding documented. ? Back/Flank: small hematoma and marked tenderness over left flank region. No midline pain. ? Neurologic: Alert and oriented ?4; cranial nerves II?XII grossly intact. No saddle anesthesias. Able to ambulate w/ normal cordination ? Skin: Hematoma left lateral flank. Vital Signs: Vital Signs - 24 hr 07/09/25 08:51 07/09/25 12:35 07/09/25 14:12 Temperature 97.6 F 98.4 F Pulse Rate 98 83 86 Respiratory Rate 25 H 16 18 Blood Pressure 145/75 H 148/85 H 132/84 Pulse Oximetry 99 97 97 Oxygen Delivery Method Room Air Room Air Room Air BMI result Body Mass Index 54.7 vss Course Reevaluation(s) Reevaluation #1: Patient in scanner. Verbal consent from patient to obtain imaging prior to labs resulting Time: 08:55 Reevaluation #2: Patient's CBC with leukocytosis no left shift. Chemistry with no acute findings eating intervention. Troponin negative EKG nondiagnostic for chief complaint and no signs of acute ischemia Time: 09:45 Reevaluation #3: CT head with no acute intracranial abnormality. CT cervical spine with cervical spondylosis without acute fracture trauma related listhesis. CT chest this suspected subsegmental atelectasis in the lungs in the lower half of the chest mild changes from pneumonia are less likely there is a 3 x 5 mm solid nodule in the posterior base of the left lower lobe no further follow-up is indicated per guidelines unless patient high risk will inform her of this. 13 mm mixed soft tissue and fatty density in the anterior superior mediastinum could represent a thymolipoma or thymoma. CT abdomen and pelvis demonstrates acute uncomplicated diverticulitis this could explain left lower quadrant pain and slight leukocytosis. Patient tolerating p.o. will discharge on p.o. Augmentin advised to follow up with PCP and GI if needed. At this time patient stable for discharge reports pain is much improved. Educated patient on diagnosis and treatment plan, answered all question, patient verbalizes understanding. However, when I went to go discharge patient she states she is in too much pain to leave. Time: 11:31 Additional Reevaluation(s): 1200: jaime reports she cant go home liek this. She reports severe pain. PT/CM discussed and patient would like this. 1400: Patient still in pain 1520: CM saw her will wait for input from PT s 1640: Sign out to Daxa Patrick pending dedicated L hip xray, augmentin ordered for diverticulitits. Patient will be placed in physician obs at this time pending eval by PT 1642: Provider: Daxa Patrick PA-C, I have rec'd care of this patient pending imaging of her left hip s/p mechanical fall this morning at home. H and P as above. Essentially intractable pain since fall of the left hip. PanScan with evidence of uncomplicated diverticulitis which could be elevating pain. No BRBPR and GI sxs. Provider planned to treat with Aug. Ordered first dose here. She has been given several analgesics and is able to tolerate PO, unable to walk comfortably. PT/OT/ CM consult has been placed. Will continue to monitor. 1934: Provider: Daxa Patrick PA-C: Patient's left hip xray came back unremarkable. She was reevaluated at bedside. She refused amb trial secondary to pain. No pain out of proportion. CT scan already visualized head of Femur, would have considered ordering. Will order IM toradol and PO tylenol. Discussed with patient that in the setting of not being able to complete a ambulation trial here that indeed PT assessment and case management will need to be consulted she is aware that this will not be available till tomorrow morning she has consented to stay in the ED while awaiting this. She has also been updated that should her pain feel improved and she is up to an ambulation trial we would happy to try this. She is resting comfortably in stretcher smiling with present at bedside. She was offered food and drink and declined at this time. Discussed with patient at bedside if there is any contraindication to give her NSAIDs prior to offering the Toradol injection she stated no and review of her chart it looks like her allergy to ibuprofen is upset stomach this is not a true allergy we will order medication via IM. 2123: Patient is requesting to go home as she feels most comfortable with that plan. She understands that without formal PT assessment here that CM is not able to see if she qualifies for VNA vs other PT services. She demonstrated verbal understanding of this and was offered to seek orthopedics for follow up. Given flexeril here with script sent to pharmacy. She was able to amb safely. Time: 21:25 Date: 07/09/25 Provider: Daxa Patrick PA-C Physician observation ended at 212. Patient has been cleared for discharge by the CARE team. Will follow up as an outpatient. Medications Administered Discontinued Medications Generic Name Dose Route Start Last Admin Trade Name Keith PRN Reason Stop Dose Admin Amoxicillin/Clavulanate Potassium 875 mg 07/09/25 16:42 07/09/25 17:11 Amoxicillin/Potassium Clav 875 Mg Tablet PO 07/09/25 16:43 875 mg ONCE ONE Administration Diazepam 2.5 mg 07/09/25 08:43 07/09/25 09:13 Diazepam 10 Mg/2 Ml Cartridge IVPUSH 07/09/25 08:44 2.5 mg STAT STA Administration Fentanyl 50 mcg 07/09/25 08:43 07/09/25 09:12 Fentanyl Citrate/Pf 100 Mcg/2 Ml Vial IVPUSH 07/09/25 08:44 50 mcg ONCE ONE Administration Protocol Iohexol 100 ml 07/09/25 10:14 07/09/25 10:14 Iohexol 350 Mg/Ml 100 Ml Infus..Btl IV 07/09/25 10:15 85 ml ONCE ONE Administration Ketorolac Tromethamine 15 mg 07/09/25 19:38 07/09/25 20:53 Ketorolac Tromethamine 15 Mg/Ml Vial IM 07/09/25 19:39 15 mg ONCE ONE Administration Morphine Sulfate 4 mg 07/09/25 11:38 07/09/25 11:48 Morphine Sulfate 4 Mg/Ml Cartridge IVPUSH 07/09/25 11:39 4 mg ONCE ONE Administration Protocol Morphine Sulfate 4 mg 07/09/25 16:30 07/09/25 17:26 Morphine Sulfate 4 Mg/Ml Cartridge IVPUSH 07/09/25 16:31 Not Given ONCE ONE Protocol Morphine Sulfate 15 mg 07/09/25 17:02 07/09/25 17:11 Morphine Sulfate Immed Release 15 Mg Tablet PO 07/09/25 17:03 15 mg ONCE ONE Administration Ondansetron HCl 4 mg 07/09/25 08:43 07/09/25 09:13 Ondansetron Hcl 4 Mg/2 Ml Vial IVPUSH 07/09/25 08:44 4 mg ONCE ONE Administration Medical Decision Making Medical Decision Making MDM Narrative: Laboratory data relevant for visit: Basic labs (CBC, CMP), troponin, EKG pending. Imaging data relevant for visit: CT head, chest, abdomen, and pelvis with contrast ordered (results pending). Assessment & Plan 54-year-old female with multiple comorbidities presenting after fall down stairs with severe left flank/abdominal pain, large flank hematoma, and possible head injury. High-energy mechanism warrants trauma protocol imaging to evaluate for internal injuries, fractures, or intracranial pathology. Pain control initiated. Problem #1: Blunt abdominal/flank trauma s/p fall Assessment: Severe left-sided flank and abdominal pain with overlying hematoma; potential for splenic, renal, or rib injuries. Concern for possible rib fractures. Currently hemodynamic status not documented; will monitor closely. No anticoagulant use. Plan: * CT head, chest, abdomen, pelvis with contrast per trauma protocol (ordered). * Basic labs including CBC, CMP, type & screen; troponin to rule out cardiac injury. * EKG to assess cardiac rhythm given reported knee give-out and troponin draw. * Continuous monitoring and reassessment after imaging; consider higher level of care/transfer if significant injuries identified. Problem #2: Acute severe pain Assessment: 10/10 pain from traumatic injuries. Plan: * IV fentanyl 50 ?g given; may repeat as needed for pain control. * Consider additional analgesia once imaging completed and diagnosis clarified. * Problem #3: Nausea/anxiety Assessment: Anxiety associated with trauma and pain. Plan: * IV ondansetron (Zofran) given. * IV diazepam given for anxiety/muscle spasm. Follow-up: Reevaluate patient immediately upon availability of imaging and laboratory results. Prepare for possible transfer if imaging reveals injuries requiring surgical or higher-level trauma care. Differential Diagnosis Differential Diagnoses: The differential diagnosis associated with the presentation includes * Renal injury (contusion or laceration): Direct trauma to the flank region and presence of a large hematoma raise concern for underlying renal injury. * Splenic injury: Left upper quadrant pain and trauma mechanism may indicate possible splenic involvement. * Rib fractures: Pain with inspiration and trauma to the flank suggest possible rib fractures. * Retroperitoneal hematoma: Mechanism and location of pain/hematoma are consistent with possible retroperitoneal bleeding. * Musculoskeletal injury (soft tissue contusion, muscle strain): Direct trauma to the flank and back may result in soft tissue injury or muscle strain. * Intracranial injury: Unclear loss of consciousness and head strike during the fall warrant consideration of traumatic brain injury. * Cardiac event (syncope, arrhythmia): Patient reports knees gave out prior to fall and is tachycardic, raising concern for possible cardiac etiology. * Other intra-abdominal injury (bowel, pancreas): High-energy mechanism could result in injury to other intra-abdominal organs. Admission/Observation Consideration of admission/observation: Escalation of care including admission/observation considered Lab Data MDM Lab Attestation statement: I reviewed the patient's lab results. 07/09/25 09:21 07/09/25 09:21 Labs: Lab Results 07/09/25 07/09/25 Range/Units 09:21 19:32 WBC 11.2 H (4.8-10.8) X10*3/uL RBC 4.48 (4.20-5.50) X10*6/uL Hgb 13.3 (12.0-16.0) g/dl Hct 40.7 (37.0-47.0) % MCV 90.8 (80.0-98.0) fL MCH 29.7 (27.0-33.0) pg MCHC 32.7 (31.0-35.0) g/dl RDW 13.0 (11.0-16.0) % Plt Count 225 (160-400) X10*3/uL MPV 9.9 (9.4-12.3) fL Immature Gran % (Auto) 0.4 (0.0-0.4) % Neut % (Auto) 77.9 H (45-73) % Lymph % (Auto) 14.3 L (20-40) % [place] % (Auto) 6.1 (2-11) % Eos % (Auto) 0.9 (0-4) % Baso % (Auto) 0.4 (0-2) % Lymph # (Auto) 1.6 (1.2-4.9) X10*3/uL [place] # (Auto) 0.7 (0.1-1.2) X10*3/uL Eos # (Auto) 0.1 (0.0-0.4) X10*3/uL Baso # (Auto) 0.0 (0.0-0.2) X10*3/uL Abs Immat Gran (auto) 0.04 H (0.00-0.03) X10*3/uL Absolute Neuts (auto) 8.8 H (2.0-8.3) x10*3/uL Absolute Nucleated RBC 0.000 (0.0-0.012) X10*3/uL Nucleated RBC % (auto) 0.0 (0.0-0.2) /100WBC PT 13.1 (11.2-13.5) SEC INR 1.1 (0.9-1.1) Sodium 139 (135-145) mmol/L Potassium 4.1 (3.3-5.1) mmol/L Chloride 110 H (96-108) mmol/L Carbon Dioxide 23 (22-29) mmol/L Anion Gap 10 L (12-20) BUN 18 H (9-16) mg/dL Creatinine 0.83 (0.5-1.4) mg/dL Estim Creat Clear Calc 93.2 Estimated GFR > 60 Random Glucose 124 H (60-115) mg/dL Calcium 9.2 (8.4-10.2) mg/dL Magnesium 1.9 (1.6-2.6) mg/dL Total Bilirubin 0.3 (0.0-1.0) mg/dL AST 22 (5-31) U/L ALT 18 (0-31) U/L Alkaline Phosphatase 82 (39-117) U/L Troponin I High Sens < 2.7 (<3.5-17.0) ng/L Total Protein 6.9 (6.5-8.0) g/dL Albumin 3.9 (3.5-5.0) g/dL Urine Color Yellow Urine Appearance Clear Urine pH 5.5 (5.0-9.0) Ur Specific [place] >= 1.030 H (1.005-1.025) Urine Protein Negative (Neg-Trace) mg/dL Urine Glucose (UA) Negative (Negative) mg/dL Urine Ketones Negative (Negative) mg/dL Urine Blood Negative (Negative) Urine Nitrite Positive H (Negative) Ur Leukocyte Esterase Trace H (Negative) Urine RBC 0-2 (0-2) /HPF Urine WBC 6-10 (0-5) /HPF Ur Squamous Epith Cells 3-5 (0-2) /HPF Urine Bacteria 4+ (None Seen) Hyaline Casts 0-2 (0-2) /LPF Independent Interpretation I performed an independent interpretation of an: EKG (Normal sinus rhythm Nonspecific T wave abnormality Abnormal ECG When compared with ECG of 24-Apr-2025 13:23, Nonspecific T wave abnormality, worse in Lateral leads) and CT Scan (Reviewed all ) Radiology Impression Discussion of test interpretation with radiology: I have reviewed the radiologist's reading. Independent Historian Clinical information obtained from an independent historian. History obtained from or confirmed by: EMS External Record Review External record reviewed: Inpatient record, Office record, Outpatient record, Prior outpatient labs, Prior outpatient radiology, Primary care record, Outside ED record and Other Critical Care Time Critical Care Time Critical Care Time: Yes Total Critical Care Time: 35 Attestation: I attest to this time spent taking care of the patient, obtaining history, physical, reviewing labs, imaging, treatment of patients condition +/- specialist/hospitalist consult +/- procedure Discharge Plan Discharge Clinical Impression: Fall, Diverticulitis, Left flank pain, Atelectasis, Lung nodules, Mass of soft tissue, Contusion of hip, left Patient Disposition: Home, Self-Care Instructions: Diverticulitis (ED), Abdominal Pain (ED) Additional Instructions: Take your medications as prescribed. If you were prescribed antibiotics today, it is important that you take your medication to their entirety, do not skip any doses, do not finish them early. Follow-up with your primary care provider this week. Return to the emergency department with new or worsening symptoms. Such as fevers, chills, chest pain, shortness of breath, nausea, vomiting, dizziness, headache, vision changes, lethargy In case of emergency call [address] ABD PELVIS IMPRESSION: Acute noncomplicated diverticulitis, descending colon/proximal sigmoid colon. No intra-abdominal pelvic solid organ injury or acute fracture. Fleischner guidelines were followed. CT/CT chest w IV con IMPRESSION: Suspected subsegmental atelectasis in the lungs in the lower half of the chest, mild changes from pneumonia or less likely. There is a 3 x 5 mm solid nodule in the posterior base of the left lower lobe. No further follow-up is indicated per Fleischner Society recommendations, unless the patient falls into a high risk category, in which case a 12 month follow-up CT chest without contrast is optional. High risk patients includes those with a history of smoking, first-degree relative with lung cancer, or exposure to uranium, radon, or asbestos. 13 mm mixed soft tissue and fatty density in the anterosuperior mediastinum could represent a thymolipoma or less likely a thymoma. CT/CT head/brain wo IV con IMPRESSION: No acute intracranial abnormality. CT cervical spine IMPRESSION: Acute noncomplicated diverticulitis, descending colon/proximal sigmoid colon. No intra-abdominal pelvic solid organ injury or acute fracture. - You have declined waiting for formal physical therapy evaluation and as we discuss this unfortunately limits our ability to see whether or not you are a candidate for visiting nurses versus a home rehab versus in-person facility. You have been given a dose of Flexeril while here you have stated that you feel comfortable to go home and will follow up with orthopedics. Other plan as above please return to the emergency department for any intractable pain or inability to function. Prescriptions: New amoxicillin-pot clavulanate 875-125 mg tablet 1 tab PO BID 7 Days Qty: 14 0RF cyclobenzaprine 10 mg tablet 10 mg PO BEDTIME PRN (Reason: muscle spasm) Qty: 5 0RF acetaminophen [Tylenol Extra Strength] 500 mg tablet 500 mg PO Q6H PRN (Reason: pain) Qty: 30 0RF No Action albuterol sulfate [Ventolin HFA] 90 mcg/actuation HFA aerosol inhaler 2 puff inhalation Q4-6H PRN (Reason: shortness of breath or wheezing) Qty: 8.5 0RF azithromycin [Zithromax Z-Pedrito] 250 mg tablet See Rx Instructions .ROUTE .COMPLEX Qty: 6 0RF Rx Instructions: For 250 mg dose pack: take 500 mg today (day 1), then 250 mg for 4 days (days 2-5) prednisone 20 mg tablet 20 mg PO BID Qty: 10 0RF diphenhydramine HCl [Benadryl] 25 mg capsule 25 mg PO Q4H PRN (Reason: itching) Qty: 20 0RF hydrocortisone [Anti-Itch (HC)] 1 % cream 1 appl topical TID 5 Days Qty: 28.35 0RF acetaminophen 500 mg tablet 500 mg PO Q6H PRN (Reason: fever or pain) Qty: 20 0RF gabapentin 300 mg capsule 300 mg PO TID metoprolol succinate 50 mg tablet extended release 24 hr 50 mg PO DAILY lisinopril 40 mg tablet 40 mg PO DAILY Qty: 90 1RF lorazepam 0.5 mg tablet 0.5 mg PO DAILY PRN (Reason: anxiety) Qty: 30 0RF hydralazine 25 mg tablet 25 mg PO BID Referrals: Mariposa Molina PA [Primary Care Provider, Hospitalist] - 1 week [facility] [Provider Group] Clinical Impression: Fall Stand Alone Forms: Work/School Release Print Language: Polish
[2025-07-09] MEDS: diazePAM 10 MG/2 ML CARTRIDGE 2.5 MG IVPUSH (09:13)
[2025-07-09 09:25] LABS: MANUAL DIFF FLAG NO
[2025-07-09 09:26] LABS: Hematocrit 40.7 % (37.0-47.0); Hemoglobin 13.3 g/dl (12.0-16.0); Imm Gran Abs Auto 0.04 X10*3/uL (0.00-0.03); Imm Gran Pct Auto 0.4 % (0.0-0.4); Lymphocytes Absolute Auto 1.6 X10*3/uL (1.2-4.9); Mean Corpuscular HGB Conc 32.7 g/dl (31.0-35.0); Mean Corpuscular Hemoglobin 29.7 pg (27.0-33.0); Mean Corpuscular Volume 90.8 fL (80.0-98.0); NRBC Abs Auto 0.000 X10*3/uL (0.0-0.012); NRBC Pct Auto 0.0 /100WBC (0.0-0.2); Platelet Count 225 X10*3/uL (160-400); Red Blood Count 4.48 X10*6/uL (4.20-5.50); White Blood Count 11.2 X10*3/uL (4.8-10.8)
[2025-07-09 09:32] LABS: INTERNATIONAL NORM RATIO 1.1 (0.9-1.1); Prothrombin Time 13.1 SEC (11.2-13.5)
[2025-07-09 09:42] LABS: Alanine Aminotransferase 18 U/L (0-31); Albumin Level 3.9 g/dL (3.5-5.0); Alkaline Phosphatase 82 U/L (39-117); Anion Gap 10 (12-20); Aspartate Amino Transferase 22 U/L (5-31); Blood Urea Nitrogen 18 mg/dL (9-16); Calcium 9.2 mg/dL (8.4-10.2); Carbon Dioxide 23 mmol/L (22-29); Chloride 110 mmol/L (96-108); Creatinine Clr Calc Pharmacy 93.2; Estimated Glomerular Filt Rate > 60; Magnesium 1.9 mg/dL (1.6-2.6); Potassium 4.1 mmol/L (3.3-5.1); Sodium 139 mmol/L (135-145); Total Protein 6.9 g/dL (6.5-8.0)
[2025-07-09 09:53] LABS: Troponin-I High Sensitivity < 2.7 ng/L (<3.5-17.0)
[2025-07-09] MEDS: iohexoL 350 MG/ML 100 ML INFUS..BTL IV (10:14)
[2025-07-09 12:35] VITALS: BP 148/85; PULSE 83; RESP 16; TEMP 36.4; O2SAT 97
--- NOTE | 2025-07-09 13:49 | PC.NURSE ---
Pt attempted to sit up and ambulate to bathroom. Unable to stand. C/o severe pain with inspiration. Provider notified.
[2025-07-09 14:12] VITALS: BP 132/84; PULSE 86; RESP 18; TEMP 36.9; O2SAT 97
[2025-07-09] MEDS: Morphine Sulfate Immed Release 15 MG TABLET PO (17:11)
[2025-07-09 19:44] LABS: Appearance Urine Clear; Glucose Urine UA Negative (Negative); PH 5.5 (5.0-9.0); Specific Gravity - Urine >= 1.030 (1.005-1.025); UMIC TRIGGER UACC YES
[2025-07-09 20:06] LABS: UACC Culture Trigger YES
[2025-07-09 21:49] VITALS: BP 132/84; PULSE 86; RESP 18; TEMP 36.9; O2SAT 97
--- NOTE | 2025-07-09 23:22 | MHC.CM.ED ---
Addendum entered by Sera Alvarado 07/09/25 23:23: Pt is requesting discharge home. Will not wait for PT evaluation. Pain improved with medications. Pt will F/U with PCP. No home services requested. No referrals placed. Pt D/C home Original Note: CM met with patient. She lives withher son. Uses a cane. 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 She does not drive. Verified her PCP, address and insurance. HCP is on file. Pt is agreeable to PT evaluation in the am and possible STR if recommended. Will place referrals.
== END 2025-07-09 21:51 | disposition home or self-care (01) ==
PROVIDERS: Physician Assistant; Emergency Provider Emergency Medicine; PCP Physician Assistant
DX: S70.02XA Contusion of left hip, initial encounter (principal); S09.90XA Unspecified injury of head, initial encounter; J98.11 Atelectasis; R10.23 Pelvic and perineal pain bilateral; K57.32 Diverticulitis of large intestine without perforation or abscess without bleeding; R51.9 Headache, unspecified; M54.2 Cervicalgia; R07.89 Other chest pain; R10.A3 Flank pain, bilateral; W10.9XXA Fall (on) (from) unspecified stairs and steps, initial encounter; Y93.9 Activity, unspecified; Y92.9 Unspecified place or not applicable; Y99.8 Other external cause status; Z79.899 Other long term (current) drug therapy
CPT/HCPCS: 36415; 70450; 71260; 72125; 73502; 74177; 80053; 81001; 83735; 84484; 85025; 85610; 87086; 93005; 96372; 96374; 96375; 99285; J1885; J2270; J2405; J3010; J3360; Q9967

== ENCOUNTER → 2025-07-09 08:43 | Outpatient (BNV) | payer OTHER, SELFPAY | PROVIDERS: Emergency Provider Emergency Medicine; PCP Physician Assistant; Visit Provider Internal Medicine | DX: R94.31 Abnormal electrocardiogram [ECG] [EKG] (principal); Z04.3 Encounter for examination and observation following other accident | CPT/HCPCS: 93010 ==

== ENCOUNTER 2025-07-14 13:53 | Outpatient (AMB) | payer OTHER, SELFPAY ==
--- NOTE | 2025-07-14 14:02 | A.OFFPC_ITS ---
Vital Signs 07/14/25 14:10 07/14/25 15:21 Height 5 ft Weight 128.14 kg BMI 55.2 BP 126/92 H 124/84 Pulse 98 Pulse Source Pulse Oximeter Temp 97.3 F Temp Source Temporal Artery Scan Pulse Oximetry (%) 98 Oxygen Delivery Method Room Air Intake Visit Reasons: Follow Up Rescheduled from 07/06/25 ([place]) Prop Maker Required: No Accompanied by: Self / Same As Patient Allergies ibuprofen (From MOTRIN) Allergy (Unknown, Verified 07/14/25 14:03) UPSET STOMACH, stomach upset, stomach upset tramadol (TRAMADOL) Allergy (Unknown, Verified 07/14/25 14:03) UPSET STOMACH, nausea and vomiting Pt states no food allergies Allergy (Unknown, Uncoded 07/14/25 14:03) unknown Medication List - Last Reconciled 07/14/25 by SHABNAM Valderrama acetaminophen 500 mg PO Q6H PRN acetaminophen (Tylenol Extra Strength) 500 mg PO Q6H PRN albuterol sulfate 90 mcg/actuation (Ventolin HFA) 2 puffs inhalation Q4-6H PRN amoxicillin-pot clavulanate 875-125 mg 1 tab PO BID 7 days cyclobenzaprine 10 mg PO TID PRN diphenhydramine HCl (Benadryl) 25 mg PO Q4H PRN gabapentin 300 mg PO TID hydralazine 25 mg PO BID hydrocortisone 1% (Anti-Itch (hydrocortisone)) 1 appl topical TID 5 days lidocaine 5% 1 patch topical DAILY lisinopril 40 mg PO DAILY lorazepam 0.5 mg PO DAILY PRN metoprolol succinate ER 50 mg PO DAILY prednisone 20 mg PO BID triamcinolone acetonide 0.1% 1 appl topical BID PRN Tobacco use date assessed: 05/03/25 Dental Screening Dental Screen Date: 05/03/25 HPI HPI Comments History of Present Illness Details 54-year-old female with history of sleep apnea, fibromyalgia, panic attacks, hypertension, osteoarthritis of the knees bilaterally presenting to the office today for management of chronic conditions and for post ER evaluation Osteoarthritis of the knees-following with orthopedics for cortisone injections Fibromyalgia/panic attacks-gabapentin, lorazepam PRN. Reports she has been feeling much more anxious/panicky since the fall 2/2 the pain. Tells me she has been using her lorazepam BID short term since the fall. Hypertension-uncontrolled. On lisinopril 20 mg daily and hydralazine 25 mg twice daily along with Toprol 50 mg daily Urge incontinence-historically had bladder sling performed by [facility] about 10 years ago. DAVID-has never been fitted for CPAP. Sleep study needs to be updated Concerns: Seen in the [facility] ED on 07/09 after sustaining a mechanical fall down the stairs, about 6. She landed on the left side and slid down the stairs on the side. She did strike her head but there was no loss of consciousness. She is not on any blood thinners. She had significant difficulty getting up due to the pain but was able to ambulate. In the ED, head CT negative for any acute intracranial abnormality . Cervical spine negative for any acute osseous abnormality showing multilevel cervical spondylosis without any acute osseous abnormalities or subluxation. CT of the chest was read as an acute uncomplicated diverticulitis the patient was asymptomatic of the descending colon/proximal sigmoid colon but otherwise no acute intra-abdominal abnormality. X-ray of the left hip/pelvis negative for any acute fracture does so mild degenerative changes. In the ED, she received IV fentanyl, Zofran, diazepam 04/24 due to acute bronchiolitis. P ain control improved she was given prednisone 20 mg take twice daily as well as cyclobenzaprine. She was given Augmentin for the suspected diverticulitis. Incidental findings on the CT scans including a 3 x 5 mm solid nodule in the posterior base of the left lower lobe. Given low risk status, no follow-up imaging advised. There is also a 13 mm mixed soft tissue and fatty density in the anterior superior mediastinum possibly representing thymolipoma or thymoma. Since then she reports she is still having difficulty with deep inspiration secondary to pain. She is experiencing pain from the midline thoracic/lumbar spine radiating around the left flank to the abdomen. She does still have some bruising where she landed on the stair. She is able to ambulate. No radiculopathy or weakness. She has been using Tylenol. Health maintenance: Last mammogram scheduled 07/20 Last Pap smear 07/2022 with 5 year follow-up advised. Follows annually Due for colonoscopy-refuses ROS: General: No fevers, malaise, unintentional weight loss HEENT: No blurred vision, diplopia. No sore throat, nasal congestion, rhinorrhea, sinus pain, ear pain Cardiovascular: No chest pain, palpitations, or leg edema Respiratory: No shortness of breath, wheezing, cough GI: No abdominal pain, nausea, vomiting, diarrhea, constipation, melena, hematochezia : No dysuria, hematuria, increased urinary frequency, decreased urinary output MSK: No myalgia, back pain Neuro: No headaches, weakness, paresthesias Skin: No rashes or lesions EXAM: Constitutional - Awake and Alert, No apparent distress Eyes - PERRL Cardiovascular - S1S2, RRR, No edema Respiratory - Normal lung expansion, Normal respiratory effort, No respiratory distress, CTA bilaterally Extremities - no calf tenderness bilaterally, no swelling MSK- midline tenderness to palpation at the level about T 10-L 3 with left-sided paraspinal tenderness to the right flank and side. Skin - Warm/Dry. ecchymosis noted to the left flank, no palpable hematoma. Circumferential scaly hyperpigmented lesion of the periumbilical area Neurological - Alert & oriented x3 Psychological - Appropriate affect PFSH Medical History Panic attacks Seizure Sleep apnea Panic attack Carpal tunnel syndrome Osteoarthritis Fibromyalgia HTN (hypertension) Surgical History History of surgery History of bilateral carpal tunnel release Hx of section Hx of cholecystectomy Hx of tubal ligation Family History Mother HTN (hypertension) Sister Ovarian cancer Maternal Aunt Breast cancer Father No problems noted. Social History Household Members: Children Housing: Other Alcohol intake: current Alcohol intake frequency: holidays/special occasions only Comment: counts correct Patient Tobacco Use Status: Former Tobacco user e-Cigarette/Vaping Use: Never Used Advance Directives Date on File: 05/12/20 service: No Current occupational status: disabled Current occupation: rt hand Sexual orientation: Straight/Heterosexual Gender identity: Female Cognitive needs: No Hearing needs: No Vision needs: Yes (Rx glasses) Questionnaire Thrive Questionnaire Date Thrive assessed: 05/03/25 TRINIDAD-7 AMB Questionnaire TRINIDAD-7 Date TRINIDAD - 7 assessed: 05/03/25 Source: Developed by DrsCaorlyn Chase, Leny Avila, Scott Chavez and colleagues, with an educational roberto from [employer]. Physical exam (Primary Care) Vital Signs: Last Vital Signs Temp 97.3 F 07/14/25 14:10 Pulse 98 07/14/25 14:10 BP 126/92 H 07/14/25 14:10 Pulse Ox 98 07/14/25 14:10 Oxygen Delivery Method Room Air 07/14/25 14:10 BMI result Body Mass Index 55.2 Tobacco/Smoking Status: Tobacco use Status Tobacco use date assessed 05/03/25 07/14/25 14:05 Patient Tobacco Use Status Former Tobacco user 07/14/25 14:05 e-Cigarette/Vaping Use Never Used 07/14/25 14:05 Thrive Assessment: Date of Thrive Assessment Date Thrive assessed 05/03/25 07/14/25 14:05 Coding Level of Care Code Est Pt Level 4 (12246) Add On Problem Visit Only Diagnoses Lumbar paraspinal muscle spasm M62.830 Spasm of abdominal muscles M62.838 Pulmonary nodule R91.1 HTN (hypertension) I10 Panic attack F41.0 Dyspnea R06.00 Assessment & Plan Assessment & Plan (1) Lumbar paraspinal muscle spasm: Code(s): M62.830 - Muscle spasm of back Category: Medical Plan: Can use Tylenol and is given prescription for cyclobenzaprine. Complete course of prednisone as ordered. Continue with topical analgesics and gentle ra [id number] exercises. Referred to physical therapy for further evaluation and management. Can use ice as well given ongoing bruising (2) Spasm of abdominal muscles: Code(s): M62.838 - Other muscle spasm Category: Medical Plan: As above (3) Pulmonary nodule: Comment: 3 x 5 mm solid nodule in the posterior base of the left lower lobe. Given history of smoking, places her into high-risk category, 1 year follow-up advised Code(s): R91.1 - Solitary pulmonary nodule Category: Medical Plan: CT scan in 1 year (4) HTN (hypertension): Code(s): I10 - Essential (primary) hypertension Category: Medical Plan: Reasonably controlled on recheck. Continue current therapies (5) Panic attack: Code(s): F41.0 - Panic disorder [episodic paroxysmal anxiety] Category: Medical Plan: Anxiety worsened secondary to acute injury and pain. Advised for the short-term she can take 2 tabs of lorazepam per day but when she is feeling better must r eturn to 1 pill per day. Future refills will only be for 1 tab daily. Reviewed mass pat, appropriate use (6) Dyspnea: Code(s): R06.00 - Dyspnea, unspecified Category: Medical Plan: Secondary to pain. Atelectasis noted on CT scan. Discussed deep breathing exercises and recommend doing this at least 10 times per hour. There is no evidence of respiratory distress or adventitious lung sounds Plan Follow-up in the office in 3 months. Labs to be completed prior to visit She is given triamcinolone to use on the dermatitis of the lower abdomen Orders: Orders PT Evaluation and Treatment Today M62.830 - Muscle spasm of back, M62.838 - Other muscle spasm Hemoglobin A1c 3 Months E66.9 - Obesity, unspecified, F41.0 - Panic disorder [episodic paroxysmal anxiety], I10 - Essential (primary) hypertension, M62.830 - Muscle spasm of back Basic Metabolic Panel 3 Months E66.9 - Obesity, unspecified, F41.0 - Panic disorder [episodic paroxysmal anxiety], I10 - Essential (primary) hypertension, M62.830 - Muscle spasm of back Lipid Panel 3 Months E66.9 - Obesity, unspecified, F41.0 - Panic disorder [episodic paroxysmal anxiety], I10 - Essential (primary) hypertension, M62.830 - Muscle spasm of back Liver Panel 3 Months E66.9 - Obesity, unspecified, F41.0 - Panic disorder [episodic paroxysmal anxiety], I10 - Essential (primary) hypertension, M62.830 - Muscle spasm of back Medications: New cyclobenzaprine 10 mg PO TID PRN 30 tabs 0RF muscle spasm triamcinolone acetonide 0.1% 1 appl topical BID PRN 30 grams 0RF abdominal rash Refilled lorazepam 0.5 mg PO DAILY PRN 30 tabs 0RF anxiety
[2025-07-14 14:10] VITALS: BP 126/92; PULSE 98; TEMP 36.3; O2SAT 98; BMI 55.2
[2025-07-14 15:21] VITALS: BP 124/84
--- OUTSIDE RECORDS SUMMARY | 2025-07-14 21:37 | XMS_ITS | Clinical Summary ---
Author Organization [employer] Address [address] [place] [address] [address] [place] [address] Care Team Providers Care Locomotive Switch Operator Name Role Phone Unavailable Primary Care [...] of 2) 2018 COVID-19 Vaccine ( - 2024-2 6 season) 2025 Influenza Vaccine (#1) 2025 RSV [...] patient's age to complete this topic Insurance [facility]
--- OUTSIDE RECORDS SUMMARY | 2025-07-14 21:37 | XMS_ITS | Clinical Summary ---
Author Organization [facility] Address [address] [place] [phone] Phone Care Team Providers Care Wheel Shop Supervisor Name Role Phone Darnell Garcia MD Primary Care Provider [phone] Allergies Active Allergy Reactions Criticality Noted Date [...] Orientation Straight 09/11/2024 8: 58 PM EST Last Filed Vital Signs Vital Sign Reading [...] Years (1 of 1 - PCV) 2018 RSV Immunization Adult Patients (1 - Risk 50-74 years 1-dose series) 2018 Zoster Vaccines (1 of 2) 2018 Cholesterol Screening (Lipid Panel) 07/03/2022 HIV Screening 07/03/2022 Hepatitis C Screening 07/03/2022 Social Influencers of Health Screening 07/03/2022 Depression Screening 08/05/2024 COVID-19 Vaccine (1 - 2024-2 6 season) 2025 Influenza Vaccine (#1) 2025 Hypertension/CHF/CAD [...] CHEMISTRY METHOD 09/12/2024 7:55 AM EST [facility] Potassium 4.1 3.5 - 5.5 mmol/L LAB CHEMISTRY METHOD 09/12/2024 7:55 AM EST [facility] Chloride 103 96 - 110 mmol/L LAB CHEMISTRY METHOD 09/12/2024 7:55 AM EST [facility] CO2 24 21 - 32 mmol/L LAB CHEMISTRY METHOD 09/12/2024 7:55 AM [facility] Anion Gap 7 3 - 11 LAB CHEMISTRY METHOD 09/12/2024 7:55 AM [facility] Glucose 159(H) 70 - 100 mg/dL LAB CHEMISTRY METHOD 09/12/2024 7:55 AM [facility] BUN 21 5 - 25 mg/dL LAB CHEMISTRY METHOD 09/12/2024 7:55 AM [facility] Creatinine 0.76 0.50 - 1.10 mg/dL LAB CHEMISTRY METHOD 09/12/2024 7:55 AM [facility] eGFR 93 >=60 mL/min/1. 73m2 LAB CHEMISTRY METHOD 09/12/2024 7:55 AM [facility] Comment:Calculation based on the Chronic Kidney Disease Epidemiology Collaboration (CKD-EPI) equation refit without adjustment for race. BUN/Creatinine Ratio 27.6 LAB CHEMISTRY METHOD 09/12/2024 7:55 AM [facility] Calcium 8.8 8.5 - 10.5 mg/dL LAB CHEMISTRY METHOD 09/12/2024 7:55 AM [facility] Blood Venous blood specimen / Unknown Venipuncture / Unknown 09/12/2024 6:41 AM EST 09/12/2024 7:02 AM EST us Joseph Armstrong MD LAB BLOOD ORDERABLES Final Result [facility] [address] [place] [address], [place] [phone] from Last 3 Months or Most Recently Relevant to Health Maintenance Insurance * Guarantor: Nancie Cuevas Account Type Relation to Patient Date of Phone Billing Address Personal/Family Self 1970 [address] [facility] [address] MEDICA[place] - [place] Advance Directives * Full [...] currently active code status orders. Care Teams Wheel Shop Supervisor Relationship Specialty Start Date End Date Darnell Garcia MD [address] [place] [address] Dr Iam [place] PCP - General Internal Medicine 09/20/24
--- OUTSIDE RECORDS SUMMARY | 2025-07-14 21:37 | XMS_ITS | Encounter Summary ---
Author Organization [facility] Address [address] [facility] [address] [place] [address] Care Team Providers Care Actuarial Science Teacher Name Role Phone Unavailable Primary Care Provider Unavailabl e Encounter Details Date Type Department Care Team (Latest Contact Info) Description 05/05/2019 Abstract [facility] CONVERSIONS Dental, Provider, DDS Social History Tobacco [...]
== END 2025-07-14 14:49 | disposition home or self-care (01) ==
LOC: HO.HMCHD 13:53
PROVIDERS: Visit Provider Physician Assistant
DX: M62.830 Muscle spasm of back (principal); M62.838 Other muscle spasm; R91.1 Solitary pulmonary nodule; I10 Essential (primary) hypertension; F41.0 Panic disorder [episodic paroxysmal anxiety]; R06.00 Dyspnea, unspecified

== ENCOUNTER → 2025-07-14 13:53 | Outpatient (BNVA) | payer OTHER, SELFPAY | PROVIDERS: Visit Provider Physician Assistant | DX: M62.830 Muscle spasm of back (principal); M62.838 Other muscle spasm; R91.1 Solitary pulmonary nodule; I10 Essential (primary) hypertension; F41.0 Panic disorder [episodic paroxysmal anxiety]; R06.00 Dyspnea, unspecified; M17.0 Bilateral primary osteoarthritis of knee; M79.7 Fibromyalgia; N39.41 Urge incontinence; G47.33 Obstructive sleep apnea (adult) (pediatric); Z79.899 Other long term (current) drug therapy | CPT/HCPCS: 99212 ==

== ENCOUNTER 2025-07-23 11:24 | Outpatient (AMB) | payer OTHER, SELFPAY ==
--- NOTE | 2025-07-23 11:45 | A.OFFVIS_ITS ---
Intake Visit Reasons: Inj-B/L knee injections, last injection 05/04/25 Intake Note: Patient presents to the office today for bilateral knee repeat cortisone injections. Last injection was 05/04/2025 which gave her good relief. Allergies ibuprofen (From MOTRIN) Allergy (Unknown, Verified 07/14/25 14:03) UPSET STOMACH, stomach upset, stomach upset tramadol (TRAMADOL) Allergy (Unknown, Verified 07/14/25 14:03) UPSET STOMACH, nausea and vomiting Pt states no food allergies Allergy (Unknown, Uncoded 07/14/25 14:03) unknown HPI HPI Inj-B/L knee injections, last injection 05/04/25: Details: Patient presents to the office today for bilateral knee repeat cortisone injections. Last injection was 05/04/2025 which gave her good relief. [facility] Medical History Panic attacks Seizure Sleep apnea Panic attack Carpal tunnel syndrome Osteoarthritis Fibromyalgia HTN (hypertension) Surgical History History of surgery History of bilateral carpal tunnel release Hx of section Hx of cholecystectomy Hx of tubal ligation Family History Mother HTN (hypertension) Sister Ovarian cancer Maternal Aunt Breast cancer Father No problems noted. Social History Household Members: Children Housing: Other Alcohol intake: current Alcohol intake frequency: holidays/special occasions only Comment: counts correct Patient Tobacco Use Status: Former Tobacco user e-Cigarette/Vaping Use: Never Used Advance Directives Date on File: 05/12/20 service: No Current occupational status: disabled Current occupation: rt hand Sexual orientation: Straight/Heterosexual Gender identity: Female Cognitive needs: No Hearing needs: No Vision needs: Yes (Rx glasses) Review of Systems Const All systems reviewed & are unremarkable except as noted in HPI and below Physical Exam Const General: cooperative, healthy appearing and no acute distress Resp Effort & Inspection: normal respiratory effort and able to speak in complete sentences Extrem Other: Bilateral knees: Normal to inspection. No ecchymosis, erythema, or joint effusion. Full ROM bilaterally. No tenderness at the medial and lateral joint lines. Negative Radha's. NVI. Office Procedures AMB Joint Injection/Aspiration Joint Injection/Aspiration Primary Site: Right Knee Secondary Site: Left Knee Injected: 40 mg of, Decadron, with 3 mL of, 1% plain Lidocaine, 0.25% Bupivacaine and in the joint Approach Used: anterolateral Procedure: The patient tolerated the procedure well, but had some pain with the injection and there was some relief with the local anesthesia Coding - Bilateral Large Joint Procedure code (CPT) selection complete Assessment & Plan Assessment & Plan (1) Bilateral primary osteoarthritis of knee: Code(s): M17.0 - Bilateral primary osteoarthritis of knee Category: Medical Plan The patient was offered a cortisone injection in bilateral knees. The patient was explained the risks, benefits, and alternatives to receiving this injection. After receiving consent for the injection, the patient had the procedure done while in the office today. The patient tolerated the procedure well with no complications. The risks, benefits, and alternatives to a corticosteroid injection were discussed with the patient, including the potential benefits of decreased inflammation and pain, improved function, and diagnostic value. Risks were reviewed, including post-injection flare, skin or fat atrophy, transient facial flushing, temporary elevation in blood glucose, bruising, and rare but serious complications such as infection, tendon weakening or rupture, and cartilage damage with repeated injections. Procedure-related discomfort and possible vasovagal symptoms were also explained. Alternatives were reviewed, including NSAIDs, physical therapy, activity modification, bracing, ice/heat, weight management, hyaluronic acid injections when appropriate, PRP or other orthobiologics, oral steroids, surgery depending on pathology, and observation. The patient verbalized understanding and elected to proceed. After receiving consent for the injection, the patient had the procedure done while in the office today. The patient tolerated the procedure well with no complications. Follow-up will be PRN, or sooner if needed Coding Level of Care Code Est Pt Level 3 (54414) Add On Problem Visit Only Diagnoses Bilateral primary osteoarthritis of knee M17.0 CPT Codes Coding - - Bilateral Large Joint: 08422 - Bilateral Large Joint ([id number])
--- OUTSIDE RECORDS SUMMARY | 2025-07-23 13:29 | XMS_ITS | Clinical Summary ---
Author Organization [employer] Address [address] [place] [address] [address] [place] [address] Care Team Providers Care Autistic Teacher Name Role Phone Unavailable Primary Care [...] patient's age to complete this topic Insurance [facility] [place] [address]
--- OUTSIDE RECORDS SUMMARY | 2025-07-23 13:29 | XMS_ITS | Encounter Summary ---
Author Organization [id number] Address [address] [facility] [address] [place] [address] Care Team Providers Care Medical Instrument Cable Fabricator Name Role Phone Unavailable Primary Care Provider Unavailabl e Encounter Details Date Type Department Care Team (Latest Contact Info) Description 05/05/2019 Abstract [facility] CONVERSIONS Dental, Provider, DDS Social History [...]
--- OUTSIDE RECORDS SUMMARY | 2025-07-23 13:29 | XMS_ITS | Clinical Summary ---
Author Organization [facility] Address [address] [place] [id number] Phone Care Team Providers Care Bulk Plant Manager Name Role Phone Darnell Garcia MD Primary Care Provider [phone] Allergies Active Allergy Reactions Criticality Noted Date [...] LAB CHEMISTRY METHOD 09/12/2024 7:55 AM EST [facility] Potassium 4.1 3.5 - 5.5 mmol/L LAB CHEMISTRY METHOD 09/12/2024 7:55 AM EST [facility] Chloride 103 96 - 110 mmol/L LAB CHEMISTRY METHOD 09/12/2024 7:55 AM EST [facility] CO2 24 21 - 32 mmol/L LAB CHEMISTRY METHOD 09/12/2024 7:55 AM [facility] Anion Gap 7 3 - 11 LAB CHEMISTRY METHOD 09/12/2024 7:55 AM [facility] Glucose 159(H) 70 - 100 mg/dL LAB CHEMISTRY METHOD 09/12/2024 7:55 AM [facility] BUN 21 5 - 25 mg/dL LAB CHEMISTRY METHOD 09/12/2024 7:55 AM [facility] Creatinine 0.76 0.50 - 1.10 mg/dL LAB CHEMISTRY METHOD 09/12/2024 7:55 AM [facility] eGFR 93 >=60 mL/min/1. 73m2 LAB CHEMISTRY METHOD 09/12/2024 7:55 AM [facility] Comment:Calculation based on the Chronic Kidney Disease Epidemiology Collaboration (CKD-EPI) equation refit without adjustment for race. BUN/Creatinine Ratio 27.6 LAB CHEMISTRY METHOD 09/12/2024 7:55 AM [facility] Calcium 8.8 8.5 - 10.5 mg/dL LAB CHEMISTRY METHOD 09/12/2024 7:55 AM [facility] Blood Venous blood specimen / Unknown Venipuncture / Unknown 09/12/2024 6:41 AM EST 09/12/2024 7:02 AM EST us Josehp Armstrong MD LAB BLOOD ORDERABLES Final Result [facility] [address] [place] [address], [place] [phone] from Last 3 Months or Most Recently Relevant to Health Maintenance Insurance * Guarantor: Nancie Cuevas Account Type Relation to Patient Date of Phone Billing Address Personal/Family Self 1970 [address] [place] [address] MED[place] Advance Directives * Full [...] currently active code status orders. Care Teams Bulk Plant Manager Relationship Specialty Start Date End Date Darnell Garcia MD [address] [place] [address] Dr Iam [place] PCP - General Internal Medicine 09/20/24
== END 2025-07-23 11:47 | disposition home or self-care (01) ==
LOC: HO.HOS 11:25
PROVIDERS: Visit Provider Physician Assistant
DX: M17.0 Bilateral primary osteoarthritis of knee (principal)
CPT/HCPCS: 20610; 99213

== ENCOUNTER → 2025-07-23 11:24 | Outpatient (BNVA) | payer OTHER, SELFPAY | PROVIDERS: Visit Provider Physician Assistant | DX: M17.0 Bilateral primary osteoarthritis of knee (principal) | CPT/HCPCS: 20610; 99212; J0665; J1100; J2003 ==